=== PATIENT | male | born 1970 | race African-American/Black ===

== ENCOUNTER 2019-04-06 00:10 | Day surgery (SDC) | payer BC, MEDICAID, SELFPAY ==
[2019-03-23 13:14] VITALS: BMI 28.4
--- NOTE | 2019-04-05 14:31 | PM.IMHP ---
H&P: HPI History of Present Illness Chief complaint: Right Knee OA Narrative: Chief Complaint: see Reason for Visit (RIGHT KNEE PAIN) Duration: months months: 7+ Severity: severe Associated signs and symptoms: symptoms reported: (PAIN AND WEAKNESS AND INSTABILITY) Exacerbating/relieving factors: exacerbating factors: (STAIR CLIMBING AND DESCENDING) and relieving factors: (ICE REST ) Review of Systems Review of Systems: All systems reviewed & are unremarkable except as noted in HPI and below Constitutional: Constitutional: Denies headache(s) and Denies weakness Eyes: Eyes: Denies blurry vision, Denies change in vision and Denies loss of vision ENT: Denies dizziness, Denies dry mouth, Denies headache(s) and Denies nasal congestion Cardiovascular: Cardiovascular: Denies chest pain, Denies syncope, Denies leg edema and Denies dyspnea on exertion Respiratory: Respiratory: Denies cough and Denies dyspnea on exertion Gastrointestinal: Gastrointestinal: Denies abdominal pain, Denies constipation and Denies diarrhea Genitourinary: Genitourinary: Denies urinary frequency Musculoskeletal: Musculoskeletal: Reports as per HPI and Denies numbness Integumentary/Breasts: Skin/Breast: Reports system reviewed and no additional complaints, except as docu Neurologic: Denies dizziness, Denies syncope, Denies headache(s), Denies loss of vision, Denies numbness and Denies weakness Psychiatric: Psychiatric: Reports no additional psychiatric complaints Endocrine: Endocrine: Reports no additional endocrine complaints Hematologic/Lymphatic: Hematologic/Lymphatic: Reports no additional hematologic/lymphatic complaints PMFSH Past Medical History Medical History Right knee DJD Social History Social History Gender identity (if verbalized by the patient): Male Meds Home Medications and Allergies Home Medications Medication Instructions Recorded Confirmed Type cetirizine [Zyrtec] 10 mg PO DAILY #30 tablet 02/18/19 03/23/19 Rx Allergies Allergy/AdvReac Type Severity Reaction Status Date / Time Penicillins Allergy Severe Anaphylaxis Verified 03/23/19 13:13 Exam Narrative: Exam Narrative: Extrem General: Yes normal to inspection, Yes capillary refill normal, No clubbing, No cyanosis, No edema, Yes Limp noted and Yes muscle atrophy Right lower extremity: normal to inspection, normal capillary refill and knee Details: normal to inspection, tenderness Location: patella, abnormal ROM (ROM 10 T0 125 DEG, PATELLO FEMORAL CREPITANCE MODERATE.) Details: pain with active ROM during and pain with passive ROM during, knee ligament exam abnormal, Mukund's Test and crepitus; Negative for abnormal to inspection, abrasion, laceration, ecchymosis, deformity (VARUS DEFORMITY) and warmth; No full ROM, cyanosis or edema Left lower extremity: normal to inspection, full ROM, normal capillary refill and knee (ROM 0 TO 130 EG) Details: normal to inspection, normal ROM and knee ligament exam normal; Negative for tenderness, swelling, Mukund's Test, abrasion, laceration, ecchymosis, crepitus, deformity and warmth; No cyanosis, edema or no joint enlargement Assessment and Plan Additional Plan 45 YO MALE WITH HX OF RIGHT KNEE PAIN DUE TO 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 HE HAS NOT HAD RELIEF WITH CORTISONE INJECTION AND PREVIOUSLSY HAD A FLARE UP AND ER VISIT. HE HAS MOST PAIN WITH STAIR CLIMBING. HIS CREPITIS IS SEVERE WITH EXAM. RECOMMEND RIGHT KNEE SCOPE WITH POSSIBLE LATERAL RELEASE. HE WILL MOST LIKELY DEVELOP PATELLO FEMORAL DJD. HIS PAIN IS JUST TOO MUCH AT THIS POINT TO JUSTIFY ANY OTHER PROCEDURE ASIDE FROM AN ARTHROSCOPY. WE ALSO DISCUSSED VISCOSUPPLEMENTATION. THAT MAY BE AN OPTION AFTER HIS KNEE SCOPE ONCE WE CAN DEBRIDE HIS CHONDROMALACIA. HE WOULD LIKE TO PROCEED.
[2019-04-06] VITALS (9 sets, daily range): BP systolic 107–186; BP diastolic 53–92; PULSE 48–60; RESP 10–18; TEMP 36.3–37.1; O2SAT 94–100
--- NOTE | 2019-04-06 07:39 | WPDHPUPDATE1 ---
History and Physical Update Update Date/Time: 04/06/19 07:39 History and Physical has been reviewed, including an updated exam of the patient. There are NO changes in the patient's condition. Risks, benefits, and alternatives have been discussed and questions answered. Patient agrees to proceed with procedure.
--- NOTE | 2019-04-06 08:33 | P.PNAN_ITS ---
Anes - Initial Pre Proc Eval Procedure: Operation Date: 04/06/19 13:30 Proposed Procedures p Right Knee Arthroscopy With Possible Lateral Release, Proceed As Indicated - Preet Goldstein MD Date/Time: 04/06/19 08:33 Surgeon: Preet Goldstein MD Pre Op Diagnosis: Right Knee OA Patient Data Age: 48 Gender: M Height: 1.78 m Weight: 90 kg Allergies Allergy/AdvReac Type Severity Reaction Status Date / Time Penicillins Allergy Severe Anaphylaxis Verified 03/23/19 13:13 Home Medications Medication Instructions Recorded Confirmed Type cetirizine [Zyrtec] 10 mg PO DAILY #30 tablet 02/18/19 03/23/19 Rx ECG: Date of Service: 02/18/19 Procedure(s): CA 12 lead EKG Accession Number(s): [id number] cc: ~ Measurements Intervals [place] Rate: 61 P: 65 VT: 158 QRS: 31 QRSD: 93 T: 26 QT: 398 QTc: 403 Interpretive Statements SINUS RHYTHM NONSPECIFIC T-WAVE ABNORMALITY- ANTERIOR LEADS BORDERLINE ECG Electronically Signed On 02-18-2019 18:47:44 [employer] by Wilver Gillette D.O. Dictated By: Wilver Gillette DO 02/18/19 0929 Patient hx anesthesia problems: none Family hx anesthesia problems: none PMFSH Past Medical History Medical History (Updated 04/06/19 @ 08:34 by Kris Archer MD) Migraine Right knee DJD Social History Social History Gender identity (if verbalized by the patient): Male Anes - Eval Final PreProcedure Day of Procedure 04/06/19 08:33 Patient weight: overweight Heart: regular rate and rhythm Lungs: clear to auscultation and normal air movement Airway: Mallampati scale class II Neurological: alert and oriented Last oral intake: >/= 8 hours ASA classification: II Emergent: no Anesthetic plan: proceed Anesthesia type and monitoring: general LMA Informed Consent: The patient's anesthetic plan and its attendant risks and benefits were discussed with the patient/family/POA. Questions were solicited and answers provided to the satisfaction of the patient/family/POA.
[2019-04-06] MEDS: CELECOXIB 200 MG CAPSULE PO (12:15)
[2019-04-06] MEDS: LACTATED RINGERS 1,000 ML 30 ML IV CONT ×2 (12:15→14:34)
[2019-04-06] MEDS: CLINDAMYCIN 900 MG/NS 50 ML 900 MG/50 ML PIGGYBACK 50 MG IVPB (13:11)
--- NOTE | 2019-04-06 14:34 | PM.OP ---
Procedure Note - Brief Procedure Note - Brief Date of procedure: 04/06/19 Pre-op diagnosis: Right Knee OA Procedure performed: grade 3 chondromalacia Description of procedure: Right Knee Scope with Chondroplasty, Synovectomy and Lateral Release Anesthesia: LARONA Surgeon: Preet Goldstein MD Estimated blood loss (mL): 5 Complications: No immediate complications Condition: stable Disposition: PACU
--- NOTE | 2019-04-06 15:49 | SUR.PHASEII ---
1548: RN notified Dr. Archer of BP 171/65. He said he was fine with that BP for now and to continue to monitor.
--- NOTE | 2019-04-06 19:57 | OP_ITS ---
DATE OF PROCEDURE: 04/06/2019 PREOPERATIVE DIAGNOSIS: Right knee severe chondromalacia patella and degenerative joint disease. POSTOPERATIVE DIAGNOSIS: Right knee severe chondromalacia patella and degenerative joint disease. PROCEDURE: Right knee arthroscopy with lateral release and chondroplasty and synovectomy of the chondrosis and synovitis respectively. ANESTHESIA: General. COMPLICATIONS: None. INDICATIONS: This is a 48-year-old male with severe chondromalacia of the patella. He has done physical therapy, has also tried pain medicine. He is unable to control his pain. He was in severe pain most days with stair climbing. He was indicated for chondroplasty and lateral release of the right patella. DESCRIPTION OF PROCEDURE: The patient was taken to the operating room in stable condition and placed in supine position. General anesthesia was induced and then the right lower extremity was prepped and draped sterilely from the toes to the thigh. Superior medial portal used for an outflow cannula. Superior lateral portal was used for the camera. The camera was introduced. The patellofemoral joint was entered. The patella had grade 3 chondromalacia and the trochlea also had grade 3 and almost 4 chondromalacia. There was a lot of synovitis in the Hoffa synovium and in the medial compartment. The medial compartment was entered, and then the medial meniscus was identified. It was not torn. There was a flap of cartilage that was chondromalacia and that was excised with a shaver. There was no other significant chondromalacia in the tibia or the femur aside from this. Next, the intercondylar notch was entered and the ACL was identified and it was intact. Lateral compartment was entered. There was some mild chondromalacia of the tibia. No other tear of the lateral meniscus and no significant chondromalacia to the lateral femoral condyle. There was some synovitis and it was impinging on the lateral compartment with flexion and extension under direct visualization. So this synovium was debrided with a shaver. Next, the patellofemoral joint then was entered and the first thing was realized that the patella was tracking lateral to the trochlea and some of the lateral facet of the patella was tracking more lateral than normal. It was felt this time that a lateral leads would benefit the patient. The rest of the examination patella revealed severe chondromalacia in the middle of the 2 lateral medial facets. A shaver was introduced, and then a chondroplasty was performed on both the patella and the trochlea until there was a lot smoother tissue. Next, a cautery was placed in the knee joint and a lateral release was performed down past the lateral joint line. Bleeders were cauterized. The wound was irrigated thoroughly. The trochlea and patella underwent chondroplasty once again and for smoother appearance of the cartilage. The instruments were removed after thorough irrigation of the knee joint. The wounds were approximated with 4-0 nylon suture. Sterile dressing applied. The patient was extubated and sent to recovery. Ibeth I MT: Brigid
== END 2019-04-06 16:40 | disposition home or self-care (01) ==
PROVIDERS: PCP Emergency Medicine; Visit Provider Orthopaedic Surgery
PROC: (CPT 29870; principal; 2019-04-06 13:30)
DX: M17.11 Unilateral primary osteoarthritis, right knee (principal); M22.41 Chondromalacia patellae, right knee; M65.861 Other synovitis and tenosynovitis, right lower leg
CPT/HCPCS: 29873; 29876; A9270; J1100; J2250; J2405; J2704; J3010; J7120

== ENCOUNTER 2019-12-05 09:24 | Emergency (ER) | payer OTHER, MEDICAID, SELFPAY ==
[2019-12-05 09:35] VITALS: BP 162/94; PULSE 56; RESP 16; TEMP 36.7; O2SAT 99
--- NOTE | 2019-12-05 09:41 | ED.ABDPAIN ---
HPI - Abdominal Pain General Chief Complaint: Abdominal Pain Stated Complaint: Stomach Pain Source: patient and RN notes reviewed Limitations: no limitations History of Present Illness HPI narrative: The patient, a non-smoker/occ drinker, presents with abdominal discomfort. Patient states he has a shorter 1 day history of epigastric discomfort, associated with nonbilious emesis x1. 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 Symptoms are mild, and un like prior diverticulitis [which was LLQ]. Advised to go to higher-level care facility to higher level testing if not improved , because for early diagnosis of serious problems [pancreatitis, appendicitis, covid etc], clear specific symptoms do not develope until later Related Data Allergies Allergy/AdvReac Type Severity Reaction Status Date / Time Penicillins Allergy Severe Anaphylaxis Verified 12/05/19 09:29 Review of Systems Review of Systems: Narrative: The patient has been informed that they may have pre-hypertension or Hypertension based on a BP reading in the department. I recommend that the patient call the primary care provider listed on their discharge instructions or a physician of their choice this week to arrange follow up for further evaluation of possible pre-hypertension or Hypertension General/Constitutional: No weight loss,fever Eyes: N0: Redness,discharge Ears/Nose/Throat: No: Epistaxis,ear discharge Respiratory: Denies: Hemoptysis Gastrointestinal: + Vomiting, no Bleeding-rectal Skin: No Lumps, eruption Neurologic: No Focal Weakness,Sz Hematologic: Denies: Petechiae/Purpura Psychiatric: No: Suicida ideationl All Other Systems: Reviewed and Negative [facility] Past Medical History Medical History (Updated 12/05/19 @ 09:57 by Jim Fabian MD) Diverticulitis large intestine Migraine Right knee DJD Social History Social History Gender identity (if verbalized by the patient): Male Comments At time of signature, agree with nursing past medical, surgical, social and family history. There is no relevant family history pertinent to the presenting complaint Exam Narrative: Exam Narrative: General Appearance: Well appearing, No distress EYE: PERRLA, Conjunctiva clear Ears: External ear normal Nose: Normal nose Mouth/Throat: Normal appearing, Normal lips Neck: Supple Respiratory: Airway patent, No respiratory distress Cardiovascular: RRR Abdomen: Soft, mild epigastrium tenderness, No massess, No organomegaly (no rebound/ surgical signs), Hyperactive bowel sounds Musculoskeletal: Full ROM Skin: Warm, Dry Neurological: A&O x3, CN II-X intact Psychiatric: Normal mood, Normal affect Course Vital Signs Vital signs: Vital Signs Temperature 98.0 F 12/05/19 09:35 Pulse Rate 56 L 12/05/19 09:35 Respiratory Rate 16 12/05/19 09:35 Blood Pressure 162/94 H 12/05/19 09:35 Pulse Oximetry 99 12/05/19 09:35 Temperature 98.0 F 12/05/19 09:46 Pulse Rate 56 L 12/05/19 09:46 Respiratory Rate 16 12/05/19 09:46 Blood Pressure 162/94 H 12/05/19 09:46 Pulse Oximetry 99 12/05/19 09:46 Discharge Plan Discharge Clinical Impression: Vomiting Qualifiers: Vomiting type: unspecified Vomiting Intractability: non-intractable Nausea presence: with nausea Qualified Code(s): R11.2 - Nausea with vomiting, unspecified Patient Disposition: Home, Self-Care Condition: Stable Prescriptions: New ondansetron HCl [Zofran] 4 mg tablet 4 mg PO Q8H PRN (Reason: nausea and vomiting) Qty: 10 RF: 0 No Action sumatriptan succinate [Imitrex] 25 mg tablet 25 mg PO ONCE PRN (Reason: migraine headache) Qty: 20 RF: 0 Other Ambulatory Orders: SARS-CoV-2 RNA, Qual RT-PCR (Routine) Location: Determined by Patient Ordered By: Jim Fabian Follow-up/Referrals: Fredo Marin
[2019-12-05 09:46] VITALS: BP 162/94; PULSE 56; RESP 16; TEMP 36.7; O2SAT 99
[2019-12-05] MEDS: ONDANSETRON HCL ODT 4 MG TABLET PO (10:01)
== END 2019-12-05 10:05 | disposition home or self-care (01) ==
PROVIDERS: Emergency Provider Emergency Medicine; PCP Emergency Medicine
DX: R11.2 Nausea with vomiting, unspecified (principal); Z20.828 Contact with and (suspected) exposure to other viral communicable diseases; M17.11 Unilateral primary osteoarthritis, right knee
CPT/HCPCS: 99213; A9270; G0463

== ENCOUNTER 2019-12-05 11:32 | Outpatient (NON) | payer OTHER, MEDICAID, SELFPAY ==
[2019-12-05 20:51] LABS: SARS-CoV-2 RNA PCR Negative
== END 2019-12-05 11:33 ==
LOC: ANHCOVIDDT 11:34
PROVIDERS: PCP Emergency Medicine; Visit Provider Emergency Medicine
DX: R11.10 Vomiting, unspecified (principal); Z20.828 Contact with and (suspected) exposure to other viral communicable diseases
CPT/HCPCS: 87635; C9803; U0003

== ENCOUNTER 2020-02-07 09:44 | Emergency (ER) | payer OTHER, MEDICAID, SELFPAY ==
--- NOTE | ~2020-02-07 | XR_ITS ---
EXAMINATION: XR abdomen/kub 1V EXAM DATE: 02/07/2020 10:21 INDICATION: Epigastric pressure. TECHNIQUE: Frontal projection(s) of the abdomen for interpretation. There is no prior study for rajiv vila. FINDINGS: There is expected amount of colonic stool and gas. No small bowel dilation, nonobstructiv e bowel gas pattern. There are no suspicious calcifications identified. There is no organomegaly suspected. The bones are unremarkable. Lung bases unremarkable. IMPRESSION: Unremarkable abdomen x-ray exam. Reviewed, dictated and finalized at location B. [employer]
[2020-02-07 09:50] VITALS: BP 178/92; PULSE 60; RESP 16; TEMP 36.9; O2SAT 100
--- NOTE | 2020-02-07 09:57 | ED.GENADULT ---
HPI - General Adult General Chief complaint: Abdominal Pain Stated complaint: abdominal pain Time Seen by Provider: 02/07/20 10:00 Source: patient and RN notes reviewed Mode of arrival: ambulatory Limitations: no limitations History of Present Illness HPI narrative: 49-year-old -German male presents with complaints of epigastric abdomen pain, nausea, dry heaves for the past 3 weeks. Rehan reports awoke this morning at approximately 04:00am with mid-epigastric pain and a coughing episode which increased once he got to work about 08:00 was sent home from work and instructed to seek urgent care attention. Pepto-Bismol last this morning with some relief and has been using Tums daily (for the past 3 weeks) with little relief. 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 No genital pain. No genital discharge. No concerns for STDs. No fever or chills. No vomiting or diarrhea. No flank pain. Tolerating po intake well. No exacerbating factors. Denies dysuria, hematuria, and genital bleeding. No blood in stool or constipation. Last BM was today at 07:30am and normal. Urine output within normal limits. The patient reports he has not been diagnosed with COVID-19. The patient reports he is not waiting for the results of a COVID-19 lab test. The patient reports he do not have fever, chills, weakness, fatigue, or myalgia. The patient reports he do not have a new or worsening cough or shortness of breath. Denies chest pain. The patient reports he do not have any rhinorrhea, congestion, sore throat, and diarrhea. Denies recent traveling. Denies concerns for COVID-19 or exposures been home with limited outdoor exposure except for essential household needs, work, and return home. At this time, patient is not suspected of having COVID-19. Some parts of this dictation were generated by voice recognition software and may contain typographical and/or grammatical inaccuracies. Related Data Allergies Allergy/AdvReac Type Severity Reaction Status Date / Time Penicillins Allergy Severe Anaphylaxis Verified 02/07/20 10:01 Review of Systems Review of Systems: Narrative: CONSTITUTIONAL: Denies fever, chills, sweats. EYES: Denies visual changes, redness, discharge. ENT: Denies rhinorrhea, congestion, sore throat, otalgia. CARDIOVASCULAR: Denies chest pain, palpitations, edema. RESPIRATORY: Denies dyspnea, wheezing, cough. GASTROINTESTINAL: Complains of epigastric abdomen pain, nausea, dry heaves. Denies diarrhea and decrease appetite. GENITOURINARY: Denies dysuria, hematuria, abnormal discharge. SKIN: Denies rash or itching. MUSCULOSKELETAL: Denies acute back pain, joint pain, or myalgia. NEUROLOGIC: Denies numbness or focal weakness. PSYCHIATRIC: Denies anxiety or depression. All systems reviewed & are unremarkable except as noted in HPI and below. [facility] Past Medical History Medical History Degenerative joint disease of knee Diverticulitis large intestine Migraine Right knee DJD Surgical History Surgical History History of arthroscopy of knee Rt knee scope with Dr. Goldstein Family History Family History (Updated 02/07/20 @ 10:23 by KB Churchill) Father Lung cancer Mother , Old age per Rehan Hypertension Atrial fibrillation Social History Social History (Updated 02/07/20 @ 10:24 by KB Churchill) Smoking status: Former smoker Tobacco type: cigarettes Second hand tobacco smoke exposure: Yes Smoking end date: 02/09/98 Alcohol intake: current Alcohol use details: occasionally Substance use: never Living arrangements: with family Occupation/Education:
[2020-02-07] MEDS: ONDANSETRON HCL ODT 4 MG TABLET PO (10:20)
[2020-02-07] MEDS: LIDOCAINE HCL 2% VISC SOLN 15 ML UDC PO (10:21)
[2020-02-07] MEDS: MAG HYDROX/AL HYDROX/SIMETH 30 ML UDC PO (10:22)
[2020-02-07 10:30] VITALS: BP 140/90
== END 2020-02-07 10:41 | disposition home or self-care (01) ==
PROVIDERS: Emergency Provider Nurse Practitioner Family; PCP Emergency Medicine
DX: K21.9 Gastro-esophageal reflux disease without esophagitis (principal); Z87.891 Personal history of nicotine dependence; M17.11 Unilateral primary osteoarthritis, right knee
CPT/HCPCS: 74018; 99213; A9270; G0463

== ENCOUNTER 2020-04-26 08:24 | Outpatient (CLI) | payer BC, MEDICAID, SELFPAY ==
--- NOTE | ~2020-04-26 | XR_ITS ---
EXAMINATION: XR thoracolumbar EXAM DATE: 04/26/2020 08:42 INDICATION: Low back pain. TECHNIQUE: Frontal and lateral projections of the thoracolumbar spine. Comparison is made to prior e xamination from 03/15/2018. FINDINGS: Mild chronic loss of the T11 and T12 vertebral body heights with mild to moderate disc dis ease at T11-12. Otherwise mild thoracolumbar disc disease. Mild lumbar facet arthropathy. The vertebr al bodies are aligned in the AP dimension. There are no acute fractures identified. Paraspinal soft t issue is unremarkable. IMPRESSION: 1. Chronic mild compressions T11 and T12 versus congenital shape. 2. T11-12 mild to moderate disc disease. 3. Mild lumbar facet arthropathy. Reviewed, dictated and finalized at location A.
== END 2020-04-26 08:25 | disposition home or self-care (01) ==
PROVIDERS: PCP Emergency Medicine; Visit Provider Emergency Medicine
DX: M54.5 Low back pain (principal); M54.6 Pain in thoracic spine
CPT/HCPCS: 72080

== ENCOUNTER 2020-05-21 19:51 | Emergency (ER) | payer BC, MEDICAID, SELFPAY ==
--- NOTE | ~2020-05-21 | CT_ITS ---
EXAMINATION: CT abdomen pelvis w con EXAM DATE: 05/22/2020 01:14 INDICATION: Left lower quadrant pain. TECHNIQUE: Spiral CT of the abdomen and pelvis was performed following intravenous injection of 100 m L Omnipaque 350. Axial, coronal and sagittal images of the abdomen and pelvis were reviewed. The do se-length product (DLP) for this examination was 736.67 mGy-cm. The exposure was tailored according to patient size (auto mA exposure control), and iterative reconstruction (ASIR) was used as additiona l dose reduction technique. There is no prior study for comparison. FINDINGS: Several subcentimeter liver hypodensities most likely cysts. There is hepatic steatosis wi thout suspicious focal lesion identified. Spleen, adrenal glands, pancreas are unremarkable. Gallbla dder is unremarkable. No biliary obstruction. Portal and splenic veins are patent. Kidneys enhance symmetrically. There is no hydronephrosis. There is a right renal cyst measuring 1.8 cm. The prost ate is unremarkable. The bladder is unremarkable. There is no retroperitoneal or pelvic lymphadenop athy. Small to moderate-sized left inguinal hernia, small right renal hernia, both containing fat. There is extensive descending and sigmoid colonic diverticulosis. There is moderate amount of inflamm ation along the descending colon with moderately edematous focal region, appearance is consistent wit h acute diverticulitis. No perforation or abscess. No enlarged lymph nodes to suggest that this is in flammatory cancer. The appendix is normal. The stomach and small bowel are unremarkable. There is e xpected amount of colonic stool. No free intraperitoneal gas. The heart is normal in size. There are no pericardial or pleural effusions. The lung bases are unremarkable. The bones are unremarkab le. IMPRESSION: 1. Findings consistent with acute uncomplicated descending colonic diverticulitis. 2. Hepatic steatosis. 3. Inguinal hernias. Reviewed, dictated and finalized at location A. IMPRESSION: 1. Findings consistent with acute uncomplicated descending colonic diverticuli tis. 2. Hepatic steatosis. 3. Inguinal hernias.
[2020-05-21 20:34] VITALS: BP 179/94; PULSE 55; RESP 16; TEMP 36.3; O2SAT 99
[2020-05-21 20:46] LABS: Basophils Percent Auto 0.2 % (0.2-1.2); Eosinophils Absolute Auto 0.1 K/mm3 (0-0.3); Eosinophils Percent Auto 0.7 % (0-4.4); Hematocrit 43.1 % (42.0-52.0); Hemoglobin 14.6 g/dL (14.0-18.0); Immature Granulocyte Absolute 0.03 K/mm3 (0.00-0.031); Immature Granulocyte Percent A 0.3 % (0-0.5); Lymphocytes Percent Auto 14.8 % (18.3-44.2); Mean Corpuscular HGB Conc 33.9 g/dl (32-36); Mean Corpuscular Hemoglobin 27.4 pg (26-34); Mean Corpuscular Volume 80.9 fl (80-100); Monocytes Absolute Auto 0.6 K/mm3 (0.1-0.6); Monocytes Percent Auto 6.2 % (2.6-8.5); Neutrophils Absolute Auto 7.9 K/mm3 (1.3-6.7); Neutrophils Percent Auto 77.8 % (45.5-73.1); Platelet Count Result 235 k/mm3 (150-375); Red Blood Count 5.33 M/mm3 (4.6-6.20); Red Cell Distribution Width 14.6 % (11.5-14.5); White Blood Count 10.1 K/mm3 (4.5-10.0)
[2020-05-21 21:08] LABS: Add Urine Microscopic? YES; Appearance Urine Clear (Clear); Bilirubin Urine Negative (Negative); Blood Urine Negative (Negative); Color Urine Yellow (Yellow); Glucose Urine UA Negative (Negative); Ketones Urine Negative (Negative); Leukocyte Esterase Ur Negative LEU/UL (Negative); Nitrate Urine Negative (Negative); Protein Urine 1+ mg/dL (Negative); Specific Grav Ur 1.013 (1.001-1.035); Urobilinogen Urine Negative mg/dL (<2.0)
[2020-05-21 21:17] LABS: RBC Urine 0-2 /hpf (0-2); Squamous Epithelial Cell Urine Rare /hpf (Few); WBC Urine 0-3 /hpf (0-3)
[2020-05-21 21:25] LABS: Alanine Aminotransferase 34 U/L (4-50); Albumin Level 4.5 g/dL (3.5-5.1); Alkaline Phosphatase 73 U/L (38-126); Anion Gap 3 mmol/L (8-16); Aspartate Amino Transferase 37 U/L (17-59); Bilirubin,Total 0.4 mg/dL (0.2-1.3); Blood Urea Nitrogen 9 mg/dL (9-20); Calcium 9.4 mg/dL (8.4-10.2); Carbon Dioxide 31 mmol/L (22-30); Chloride 104 mmol/L (98-107); Estimated CRCL calculation 85 ml/min; Estimated Glomerular Filt Rate > 60; Glucose 101 mg/dL (75-110); Lipase 79 U/L (23-300); Potassium 4.5 mmol/L (3.4-5.0); Sodium 138 mmol/L (137-145)
[2020-05-21 23:48] VITALS: BP 175/92; PULSE 54; RESP 16; O2SAT 100
[2020-05-22 00:19] VITALS: BP 159/75; PULSE 52; RESP 16; O2SAT 99
--- NOTE | 2020-05-22 00:26 | ED.GENADULT ---
HPI - General Adult General Chief complaint: Abdominal Pain Stated complaint: LLQ pain, N/V Time Seen by Provider: 05/21/20 23:50 Source: patient History of Present Illness HPI narrative: Patient is a 49 y/o male complaining left lower abdominal pain starting approximately 9 hours ago. He describes his pain as sharp and rates it as 7/10. There is no pain radiation. He states that cough makes his pain worse. He had an episode of vomiting. He has no diarrhea. Related Data Allergies Allergy/AdvReac Type Severity Reaction Status Date / Time Penicillins Allergy Severe Anaphylaxis Verified 02/07/20 10:01 Review of Systems Constitutional: Constitutional: Denies chills, Denies fever(s), Denies headache(s) and Denies weakness Eyes: Eyes: Denies blurry vision ENT: Denies headache(s) and Denies neck pain Cardiovascular: Cardiovascular: Denies chest pain and Denies dyspnea Respiratory: Respiratory: Denies cough and Denies dyspnea Gastrointestinal: Gastrointestinal: Reports abdominal pain, Denies diarrhea, Reports nausea and Reports vomiting Genitourinary: Genitourinary: Denies hematuria and Denies dysuria Musculoskeletal: Musculoskeletal: Denies back pain and Denies neck pain Neurologic: Denies headache(s) and Denies weakness PMFSH Past Medical History Medical History Degenerative joint disease of knee Diverticulitis large intestine Migraine Right knee DJD Surgical History Surgical History History of arthroscopy of knee Rt knee scope with Dr. Goldstein Family History Family History Father Lung cancer Mother , Old age per Rehan Hypertension Atrial fibrillation Social History Social History Smoking status: Former smoker Tobacco type: cigarettes Second hand tobacco smoke exposure: Yes Smoking end date: 02/09/98 Alcohol intake: current Substance use: never Gender identity (if verbalized by the patient): Male Exam Const: General: no acute distress and well developed Orientation/consciousness: oriented to person, oriented to place, oriented to time and patient oriented x3 HENMT: Head: normocephalic Ears: external ears normal General nose exam: Normal external nose present Eyes: General: appearance normal, both eyes and all related structures Conjunctivae: conjunctivae normal Neck: Neck: normal visual inspection and full ROM Chest: Chest palpation & inspection: normal inspection of the chest and no tenderness Resp: Effort & Inspection: normal respiratory effort Auscultation: clear to auscultation bilaterally Cardio: Rate: regular rate Rhythm: regular rhythm GI: GI Palp: Yes abdominal tenderness (left lower quadrant) and Yes Soft to palpation Skin: General skin exam: normal color and turgor normal Neuro: General: oriented to person, oriented to place, oriented to time and patient oriented x3 Cognition (Neuro): normal cognition Extrem: General: normal to inspection, full ROM and no pedal edema Psych: Appearance: grossly normal Mental Status: mental status grossly normal Affect: normal affect Course Vital Signs Vital signs: Vital Signs Temperature 36.3 C L 05/21/20 20:34 Pulse Rate 55 L 05/21/20 20:34 Respiratory Rate 16 05/21/20 20:34 Blood Pressure 179/94 H 05/21/20 20:34 Pulse Oximetry 99 05/21/20 20:34 Temperature 36.3 C L 05/21/20 20:34 Pulse Rate 56 L 05/22/20 02:16 Respiratory Rate 16 05/22/20 02:16 Blood Pressure 158/72 H 05/22/20 02:16 Pulse Oximetry 99 05/22/20 02:16 Medical Decision Making Vital Signs Vital Signs: Vital Signs Temperature 36.3 C L 05/21/20 20:34 Pulse Rate 55 L 05/21/20 20:34 Respiratory Rate 16 05/21/20 20:34 Blood Pressure 179/94 H 05/21/20 20:34 Pulse Oximetry 99
[2020-05-22] MEDS: KETOROLAC 30 MG/ML VIAL (*BKC) IV PUSH (01:01)
[2020-05-22 02:16] VITALS: BP 158/72; PULSE 56; RESP 16; O2SAT 99
== END 2020-05-22 02:10 | disposition home or self-care (01) ==
PROVIDERS: Emergency Medicine; Emergency Provider Emergency Medicine; PCP Emergency Medicine
DX: K57.32 Diverticulitis of large intestine without perforation or abscess without bleeding (principal); M17.11 Unilateral primary osteoarthritis, right knee; Z87.891 Personal history of nicotine dependence; K40.90 Unilateral inguinal hernia, without obstruction or gangrene, not specified as recurrent; K76.0 Fatty (change of) liver, not elsewhere classified
CPT/HCPCS: 36415; 74177; 80053; 81001; 83690; 85025; 96374; 99284; J1885; Q9967

== ENCOUNTER 2020-06-19 09:00 | Outpatient (RCR) | payer BC, MEDICAID, SELFPAY ==
--- NOTE | 2020-05-24 10:18 | PTOPEVAL ---
INITIAL PHYSICAL THERAPY EVALUATION and PLAN OF CARE Thank you for referring Rehan Reilly Jr. to [facility].? Rehan is scheduled to be seen for physical therapy? 2x/week for 4 weeks. Please review, sign, date and return this plan of care TATE. I agree with and certify that the following plan of care is medically necessary. Referring Physician Date Admitting Provider: Attending Provider: Fredo Marin MD Referring Provider: *PT Outpatient Evaluation Start: 05/24/20 09:14 Freq: Status: Active Protocol: Document 05/24/20 09:14 BETSEY (Rec: 05/24/20 10:18 BETSEY [id number]) Therapy Assessment Status Assessment Status Assessment Status Evaluation Outpatient Past Medical History Past Medical History Source of Past Medical History Recalled from Previous Visit, Confirmed with Patient/Family Neurological History Hx Migraine Yes Cardiovascular History Hx Cardiac Disorders No Significant History Respiratory History Hx Other Respiratory Disorders Yes: 11/2019 - received CPAP Gastrointestinal History Hx Diverticulitis Yes Genitourinary History Hx Genitourinary Disorders No Significant History Musculoskeletal History Hx Back Injury Yes: lumbar, thoracic Hx Orthopedic Surgery Yes: Rt knee- 03/2019 arthroscopy Hx Other Musculoskeletal Disorders Yes: RIGHT KNEE PAIN, OFF AND ON BACK PAIN- DISCS OUT OF PLACE Hematological History Hx Hematological Disorders No Significant History Endocrine History Hx Endocrine Disorders No Significant History HEENT History Hx HEENT Disorders No Significant History Integumentary History Hx Skin Disorders No Significant History Reproductive History Hx Reproductive Disorders No Significant History Psychosocial History Hx Psychiatric Disorders No Significant History Pain History History of Any Previous or Ongoing No Significant History Instance of Pain Anesthesia History Hx Anesthesia Reactions No Significant History Evaluation Information Problem Diagnosis low back pain,pain in thoracic spine,spondylosis lumbar spine,disc disorder Onset worsened last month or so Subjective Information Having more shooting pain Query Text:As Reported By Patient/ right on spine - not dependent Family on activity 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 Sleeping - does put biofreeze on
--- NOTE | 2020-06-19 09:50 | PTOPEVAL ---
PHYSICAL THERAPY DISCHARGE SUMMARY Thank you for referring Rehan Reilly Jr. to [facility].? Rehan has been seen x 8 visits in PT. All goals have been met. He is compliant and proficient with his HEP. I agree with Rehan's discharge from PT. Referring Physician Date Admitting Provider: Attending Provider: Fredo Marin MD Referring Provider: Therapy Assessment Status Assessment Status Assessment Status Discharge Evaluation Information Problem Diagnosis low back pain,pain in thoracic spine,spondylosis lumbar spine,disc disorder Subjective Information Rehan reports that he was able Query Text:As Reported By Patient/ to watch a movie with his Family girlfriend without having any back pain. He has been experimenting with various lumbar supports for seat while driving. He has foam roller and ther ex ball at home - use on a daily basis - helps to maintain back/spine mobility. Pain Assessment Lower Back Reported Pain Level 2 Pain Description Aching Lowest Pain Intensity 0 Greatest Pain Intensity 4 Cervical and Lumbar ROM Lumbar ROM Lumbar Flexion (0-90) 65 Query Text:Active in Degrees Lumbar Extension (0-40) 30 Query Text:Active in Degrees Lumbar Lateral Flexion Right (0-40) 25 Query Text:Active in Degrees Lumbar Lateral Flexion Left (0-40) 25 Query Text:Active in Degrees Lumbar Comments no discomfort with back motion this date Palpation Assessment Palpation Palpation no discomfort with P-A mob thoracic spine - mild decreased mobility into R rotation with mid thoracic spine - no discomfort - good mobility present PT Clinical Summary Clinical Summary Protocol: PTEVCODE PT Clinical Summary Modified Oswestry LBP Questionnaire - 6% Rehan has progressed well in PT. His back pain has decreased, back ROM has increased, he is very proficient with his HEP which helps him to manage any back pain that he might have, he has increased awareness of proper posture and body
== END 2020-06-20 09:15 | disposition home or self-care (01) ==
LOC: ANHPT 09:00
PROVIDERS: PCP Emergency Medicine; Visit Provider Emergency Medicine
DX: M54.5 Low back pain (principal); M47.816 Spondylosis without myelopathy or radiculopathy, lumbar region; M51.9 Unspecified thoracic, thoracolumbar and lumbosacral intervertebral disc disorder
CPT/HCPCS: 97014; 97110; 97140; 97161; G0283

== ENCOUNTER 2020-10-10 02:26 | Day surgery (SDC) | payer BC, MEDICAID, SELFPAY ==
[2020-09-27 14:03] VITALS: BMI 29.4
[2020-10-10 06:08] VITALS: BP 176/90; PULSE 50; RESP 16; TEMP 35.7; O2SAT 99; BMI 28.5
[2020-10-10] MEDS: LACTATED RINGERS 1,000 ML 150 ML IV CONT (06:31)
--- NOTE | 2020-10-10 07:23 | P.PNAN_ITS ---
Anes - Initial Pre Proc Eval Procedure: Operation Date: 10/10/20 07:30 Proposed Procedures p Screening Colonoscopy - Marco Early MD Date/Time: 10/10/20 07:23 Surgeon: Marco Early MD Pre Op Diagnosis: neoplasm screening Z12.11 Patient Data Age: 50 Gender: M Height: 1.78 m Weight: 90.4 kg Last Vital Signs Temp 96.2 F L 10/10/20 06:08 Pulse 50 L 10/10/20 06:08 Resp 16 10/10/20 06:08 BP 176/90 H 10/10/20 06:08 Pulse Ox 99 10/10/20 06:08 Allergies Allergy/AdvReac Type Severity Reaction Status Date / Time Penicillins Allergy Severe Anaphylaxis Verified 10/10/20 06:20 Home Medications Medication Instructions Recorded Confirmed Type No Home Medications 09/27/20 10/10/20 History Patient hx anesthesia problems: none Family hx anesthesia problems: none PMFSH Past Medical History Medical History Degenerative joint disease of knee Diverticulitis large intestine Migraine Right knee DJD Surgical History Surgical History History of arthroscopy of knee Rt knee scope with Dr. Goldstein Family History Family History Father Lung cancer Mother , Old age per [place] Hypertension Atrial fibrillation Social History Social History Social History: Patient does not drink caffeine or exercise. Smoking packs per day: 1.5 Smoking cigarettes per day: 30.0 Years smoked: 8 Smoking pack-years: 12.00 Smoking status: Former smoker Tobacco type: cigarettes Second hand tobacco smoke exposure: Yes Smoking end date: 02/09/98 Additional smoking assessment comments: Patient's brother smokes in the house. Alcohol intake: current Drinks per week: 2 Alcohol use details: Patient drinks alcohol rarely. 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 Gender identity (if verbalized by the patient): Male Sexual Orientation (if Verbalized by the Patient): Straight or Heterosexual Spiritual care concerns: No Anes - Eval Final PreProcedure Day of Procedure 10/10/20 07:23 Patient weight: overweight Heart: regular rate and rhythm Lungs: clear to auscultation Airway: Mallampati scale class II Neurological: alert and oriented Last oral intake: >/= 8 hours ASA classification: II Emergent: no Anesthetic plan: proceed Anesthesia type and monitoring: general GIVS and standard monitoring Informed Consent: The patient's anesthetic plan and its attendant risks and benefits were discussed with the patient/family/POA. Questions were solicited and answers provided to the satisfaction of the patient/family/POA.
--- NOTE | 2020-10-10 07:28 | PM.HPGS ---
History of Present Illness History of Present Illness Consent: Risks, benefits, and alternatives have been discussed and questions answered. Patient agrees to proceed with procedure. Chief complaint: neoplasm screening Z12.11 Narrative: Rehan Reilly Jr. is a 50 year old male here for first colon screening, he also is complaining of epigastric pain despite using pepcid and never had egd Review of Systems Constitutional: Constitutional: Denies headache(s) and Denies weakness Eyes: Eyes: Denies blurry vision ENT: Reports Normal hearing present, Denies headache(s) and Denies neck pain Cardiovascular: Cardiovascular: Denies chest pain and Denies dyspnea Respiratory: Respiratory: Denies dyspnea Gastrointestinal: Gastrointestinal: Reports no additional gastrointestinal complaints Genitourinary: Genitourinary: Denies dysuria Musculoskeletal: Musculoskeletal: Denies neck pain Integumentary/Breasts: Skin/Breast: Denies dry skin Neurologic: Reports Normal hearing present, Denies headache(s) and Denies weakness Psychiatric: Psychiatric: Denies anxiety Endocrine: Endocrine: Denies change in body appearance Hematologic/Lymphatic: Hematologic/Lymphatic: Denies easy bleeding Allergic/Immunologic: Allergic/Immunologic: Denies urticaria PMFSH Past Medical History Medical History Degenerative joint disease of knee Diverticulitis large intestine Migraine Right knee DJD Surgical History Surgical History History of arthroscopy of knee Rt knee scope with Dr. Goldstein Family History Family History Father Lung cancer Mother , Old age per Rehan Hypertension Atrial fibrillation Social History Social History Social History: Patient does not drink caffeine or exercise. Smoking packs per day: 1.5 Smoking cigarettes per day: 30.0 Years smoked: 8 Smoking pack-years: 12.00 Smoking status: Former smoker Tobacco type: cigarettes Second hand tobacco smoke exposure: Yes Smoking end date: 02/09/98 Additional smoking assessment comments: Patient's brother smokes in the house. Alcohol intake: current Drinks per week: 2 Alcohol use details: Patient drinks alcohol rarely. 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 Gender identity (if verbalized by the patient): Male Sexual Orientation (if Verbalized by the Patient): Straight or Heterosexual Spiritual care concerns: No Meds Home Medications and Allergies Home Medications Medication Instructions Recorded Confirmed Type No Home Medications 09/27/20 10/10/20 History Allergies Allergy/AdvReac Type Severity Reaction Status Date / Time Penicillins Allergy Severe Anaphylaxis Verified 10/10/20 06:20 Vital Signs Vital Signs - 24 hr 10/10/20 06:08 Temperature 96.2 F L Pulse Rate 50 L Respiratory Rate 16 Blood Pressure 176/90 H Pulse Oximetry 99 Exam Const: General: comfortable and no acute distress HENMT: General nose exam: Normal nares present Eyes: General: appearance normal, both eyes and all related structures Neck: Neck: no JVD Resp: Auscultation: clear to auscultation bilaterally Cardio: Rate: regular rate Rhythm: regular rhythm GI: Inspection: non-distended GI Palp: Yes Soft to palpation Skin: General skin exam: normal color Neuro: General: gait normal Speech: normal speech Extrem: General: normal to inspection Psych: Mental Status: mental status grossly normal Assessment and Plan Assessment and plan (1) Colon cancer screening: Code(s): Z12.11 - Encounter for screening for malignant neoplasm of colon
[2020-10-10 07:49] VITALS: BP 112/64; PULSE 58; RESP 16; O2SAT 98
[2020-10-10 07:59] VITALS: BP 117/73; PULSE 47; RESP 16; O2SAT 98
[2020-10-10 08:09] VITALS: BP 123/69; PULSE 43; RESP 16; O2SAT 98
== END 2020-10-10 08:26 | disposition home or self-care (01) ==
PROVIDERS: PCP Emergency Medicine; Visit Provider Internal Medicine Gastroenterology
PROC: 0DJD8ZZ Inspection of Lower Intestinal Tract, Via Natural or Artificial Opening Endoscopic (ICD-10-PCS; CPT 45378; principal; 2020-10-10 07:30)
DX: Z12.11 Encounter for screening for malignant neoplasm of colon (principal); D12.0 Benign neoplasm of cecum; D12.3 Benign neoplasm of transverse colon; D12.4 Benign neoplasm of descending colon; D12.5 Benign neoplasm of sigmoid colon; K57.30 Diverticulosis of large intestine without perforation or abscess without bleeding; K64.8 Other hemorrhoids; F12.90 Cannabis use, unspecified, uncomplicated; K21.9 Gastro-esophageal reflux disease without esophagitis; Z87.891 Personal history of nicotine dependence
CPT/HCPCS: 45385; 88305; J2704; J7120

== ENCOUNTER 2020-10-11 17:31 | Inpatient (IN) | payer BC, MEDICAID, SELFPAY ==
[2020-10-11 17:39] VITALS: BP 154/97; PULSE 80; RESP 20; TEMP 36.8; O2SAT 100
--- NOTE | 2020-10-11 18:02 | ED.GIBLEED ---
HPI - GI Bleed General Chief complaint: GI Bleed Stated complaint: Rectal Bleeding after colonoscopy Time Seen by Provider: 10/11/20 17:50 Source: patient and RN notes reviewed Mode of arrival: ambulatory Limitations: no limitations History of Present Illness HPI Narrative: This is a 50 year old male who presents for evaluation of rectal bleeding s/p colonoscopy. Patient had a colonoscopy with polypectomies performed yesterday by Dr. Early. He started passing blood with clots rectally last night. He has continued to have multiple episodes today. He states 10 minutes ago he had the urge to have bowel movement, and he passed blood in the toilet with clots. He denies abdominal pain, nausea, vomiting, fever, dizziness or lightheadedness. He denies taking any blood thinners or antiplatelets. Related Data Home Medications Medication Instructions Recorded Confirmed No Home Medications 09/27/20 10/10/20 Allergies Allergy/AdvReac Type Severity Reaction Status Date / Time Penicillins Allergy Severe Anaphylaxis Verified 10/11/20 17:46 Review of Systems Review of Systems: All systems reviewed & are unremarkable except as noted in HPI and below PMFSH Past Medical History Medical History Degenerative joint disease of knee Diverticulitis large intestine Migraine Right knee DJD Surgical History Surgical History History of arthroscopy of knee Rt knee scope with Dr. Goldstein Family History Family History Father Lung cancer Mother , Old age per [place] Hypertension Atrial fibrillation Social History Social History Social History: Patient does not drink caffeine or exercise. Smoking packs per day: 1.5 Smoking cigarettes per day: 30.0 Years smoked: 8 Smoking pack-years: 12.00 Smoking status: Former smoker Tobacco type: cigarettes Second hand tobacco smoke exposure: Yes Smoking end date: 02/09/98 Additional smoking assessment comments: Patient's brother smokes in the house. Alcohol intake: current Drinks per week: 2 Alcohol use details: Patient drinks alcohol rarely. 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 Gender identity (if verbalized by the patient): Male Sexual Orientation (if Verbalized by the Patient): Straight or Heterosexual Spiritual care concerns: No Exam Const: General: no acute distress and alert Orientation/consciousness: patient oriented x3 Eyes: EOM: EOMs intact bilaterally Chest: Chest palpation & inspection: normal inspection of the chest Resp: Effort & Inspection: normal respiratory effort and no retractions Auscultation: clear to auscultation bilaterally Cardio: Rate: regular rate Rhythm: regular rhythm Heart sounds: no murmurs GI: GI Palp: Yes Soft to palpation, No Tenderness to palpation present (GI) and No Guarding due to palpation present (GI) Auscultation: normal bowel sounds Skin: General skin exam: normal color Rashes: no rashes Neuro: General: patient oriented x3, moves all extremities and CN's II-XI intact bilaterally Course Consultations Consultation #1: I Discussed case with Dr. Eliazar Giron who agrees patient to be obs in hospital. Kami melchor accepts patient to medical floor. PAtient showed me toilet full of dark blood red Date: 10/11/20 Time: 19:09 Vital Signs Vital signs: Vital Signs Temperature 98.2 F 10/11/20 17:39 Pulse Rate 80 10/11/20 17:39 Respiratory Rate 20 10/11/20 17:39 Blood Pressure 154/97 H 10/11/20 17:39 Pulse Oximetry 100 10/11/20 17:39 Temperature 98.2 F 10/11/20 17:39 Pulse Rate 62 10/11/20 21:07 Respiratory Rat
[2020-10-11 18:29] LABS: Basophils Percent Auto 0.3 % (0.2-1.2); Eosinophils Absolute Auto 0.2 K/mm3 (0-0.3); Hematocrit 36.1 % (42.0-52.0); Hemoglobin 12.1 g/dL (14.0-18.0); Immature Granulocyte Absolute 0.02 K/mm3 (0.00-0.031); Immature Granulocyte Percent A 0.3 % (0-0.5); Lymphocytes Absolute Auto 2.54 K/mm3 (0.9-3.2); Lymphocytes Percent Auto 34.1 % (18.3-44.2); Mean Corpuscular HGB Conc 33.5 g/dl (32-36); Mean Corpuscular Hemoglobin 27.9 pg (26-34); Mean Corpuscular Volume 83.4 fl (80-100); Mean Platelet Volume 9.2 fl (7.4-10.4); Monocytes Absolute Auto 0.7 K/mm3 (0.1-0.6); Monocytes Percent Auto 9.1 % (2.6-8.5); Neutrophils Percent Auto 54.2 % (45.5-73.1); Platelet Count Result 235 k/mm3 (150-375); Red Blood Count 4.33 M/mm3 (4.6-6.20); Red Cell Distribution Width 14.5 % (11.5-14.5); White Blood Count 7.5 K/mm3 (4.5-10.0)
[2020-10-11 18:39] LABS: Alanine Aminotransferase 38 U/L (4-50); Albumin Level 4.1 g/dL (3.5-5.1); Alkaline Phosphatase 69 U/L (38-126); Anion Gap 7 mmol/L (8-16); Aspartate Amino Transferase 36 U/L (17-59); Bilirubin,Total 0.4 mg/dL (0.2-1.3); Blood Urea Nitrogen 16 mg/dL (9-20); Calcium 8.9 mg/dL (8.4-10.2); Carbon Dioxide 24 mmol/L (22-30); Chloride 107 mmol/L (98-107); Estimated CRCL calculation 82 ml/min; Estimated Glomerular Filt Rate > 60; Glucose 97 mg/dL (65-110); Potassium 4.1 mmol/L (3.4-5.0); Sodium 138 mmol/L (137-145)
[2020-10-11 18:41] LABS: Partial Thromboplastin Time 26.4 SECONDS (22.3-36.8)
[2020-10-11 19:00] VITALS: BP 147/114; PULSE 75; RESP 14; O2SAT 100
--- NOTE | 2020-10-11 19:00 | PC.NURSE ---
assumed care of pt. at this time. Report from RAJESH Clay
--- NOTE | 2020-10-11 19:20 | PC.NURSE ---
Assumed care of pt. at this time. Report from RAJESH Clay
[2020-10-11 19:48] LABS: Hematocrit 33.4 % (42.0-52.0); Hemoglobin 11.4 g/dL (14.0-18.0)
[2020-10-11 21:07] VITALS: BP 153/109; PULSE 62; RESP 14; O2SAT 100
[2020-10-11 21:20] VITALS: BP 159/110; PULSE 65; RESP 14; O2SAT 100
[2020-10-11 21:35] VITALS: BP 153/96; PULSE 63; RESP 16; O2SAT 100
[2020-10-11 21:43] VITALS: BMI 28.3
--- NOTE | 2020-10-11 21:47 | ADMGEN ---
This patient, Rehan Reilly Jr., was admitted to [facility]. Patient/family oriented to hospital policies and general routines including ID bracelet, bed and alarms, visiting hours, pain management, procedures, bathroom and other care routines, personal items, smoking policy, room service/diet, and visiting hours. Information on how to activate the Rapid Response Team has been discussed. Patient/Family are encouraged to report perceived risks to care and to ask questions if they do not understand what they are told or what they should do.
[2020-10-11 21:53] VITALS: BMI 28.3
[2020-10-11] MEDS: SODIUM CHLORIDE 0.9% IV 1,000 ML 125 ML IV CONT (22:06)
--- NOTE | 2020-10-11 23:05 | PM.IMHP ---
H&P: HPI History of Present Illness Date/Time: 10/11/20 23:05 Chief Complaint: Rectal bleeding after colonoscopy. Narrative: This is a pleasant 50-year-old male with obstructive sleep apnea who presented to the emergency department earlier today for evaluation of rectal bleeding after colonoscopy with polypectomy performed yesterday per Dr. Early. Last evening upon returning home he started to pass a small amount of blood per rectum which he assumed was probably normal. As the evening progressed he began passing large amounts of blood admixed with clots. Today at work I believe he had 3 such episodes and he decided to come in today for evaluation. His hemoglobin on arrival was 2.5 g lower when compared to labs done in May 2020 and he is being admitted in this setting for closer monitoring. Since admission to the floor he has had 1 further bloody bowel movement. He denies tenesmus and pain with the bowel movements. He is not feeling lightheaded or dizzy. No epigastric pain, abdominal pain, nausea, vomiting, or diaphoresis. Review of Systems Review of Systems: Twelve systems were reviewed with pertinent positives and negatives as per HPI. No fever, chills, or sweats. No recent cold or flu symptoms. He denies chest pain shortness of breath. He has been told that his blood pressures are a bit high when he visits the doctor though he has never been formally diagnosed with hypertension. He does have blood pressure cuffs at home but does not necessarily monitor them daily. He denies headache and chest pain. No nausea or vomiting. Except as documented, all other systems were reviewed and are negative. [facility] Past Medical History Medical History (Updated 10/11/20 @ 23:38 by Kami Hansen PA-C) Degenerative joint disease Diverticulitis large intestine Gastroesophageal reflux disease Lumbar disc disease Migraine Obstructive sleep apnea treated with BiPAP (11/2019) Surgical History Surgical History (Updated 10/11/20 @ 23:11 by Kami Hansen PA-C) History of arthroscopy of right knee (03/2019) History of colonoscopy with polypectomy (10/10/20) Family History Family History Father Lung cancer Mother , Old age per Rehan Hypertension Atrial fibrillation Social History Social History Social History: Surrogate decision maker: Ashwini Arteaga, significant other. Code status: Full code. Smoking packs per day: 1.5 Smoking cigarettes per day: 30.0 Years smoked: 10 Smoking pack-years: 15.00 Smoking status: Former smoker Tobacco type: cigarettes Second hand tobacco smoke exposure: Yes Smoking end date: 02/09/98 Alcohol intake: current Drinks per week: 3 Substance use: current Substance use type: marijuana Last use: 10/08/20 Additional occupation/education comments: Works for [employer]. Meds Home Medications and Allergies Home Medications Medication Instructions Recorded Confirmed Type famotidine 20 mg PO DAILY 10/11/20 10/11/20 History multivit with min-folic acid 1 tablet PO DAILY 10/11/20 10/11/20 History [Adult One Daily Multivitamin] Allergies Allergy/AdvReac Type Severity Reaction Status Date / Time Penicillins Allergy Severe Anaphylaxis Verified 10/11/20 17:46 Vital Signs Vital Signs - 24 hr 10/11/20 17:39 10/11/20 19:00 10/11/20 21:07 Temperature 98.2 F Pulse Rate 80 75 62 Respiratory Rate 20 14 14 Blood Pressure 154/97 H 147/114 H 153/109 H Pulse Oximetry 100 100 100 10/11/20 21:20 10/11/20 21:35 Temperature Pulse Rate 65 63 Respiratory Rate 14 16 Blood Pressure 159/110 H 153/96 H Pulse Oximetry 100 100 Exam Narrative: General: Well-developed male in the semi-Izquierdo position in bed in no distress. Weight: 89.6 kg. BMI: 28.3. HEENT: Normocephalic, atraumatic. PERRL, EOMI. Sclerae anicteric. Ora
[2020-10-12] VITALS (11 sets, daily range): BP systolic 97–153; BP diastolic 63–91; PULSE 56–81; RESP 12–18; TEMP 36.2–37.3; O2SAT 95–100
--- NOTE | 2020-10-12 01:18 | PC.NURSE ---
administrative staff supervisor and Dr. Santana made aware of patient's fall.
--- NOTE | 2020-10-12 01:22 | PC.NURSE ---
0105 pt ambulated to bathroom to void and fell, doesn't remember falling. doesn;t seemed to hit head or hurting any other part of body. pt did get up with assistance to sit on toilet to have a bowel movement. pt seemed to be diaphoretic. vital signs taking when pt got backed to bed, bp 97/63, hr 56, o2 sat 100%. pt also became nauseated while sitting on toilet, dry heaves with nausea. dr masters and aminah(clerical warehouse worker) notified. luisarina on floor at 0125. pt resting in bed now. will notify dr masters for any further orders.
[2020-10-12] MEDS: SODIUM CHLORIDE 0.9% IV 500 ML 999 ML IV CONT (02:00)
--- NOTE | 2020-10-12 02:50 | PC.NURSE ---
This patient, Rehan Reilly Jr., was transferred to [[id number] ] on 10/12/20 at 0245. Personal belongings sent with patient. Report given to [jeff ]. Appropriate documentation sent with patient.
[2020-10-12 03:48] LABS: Hematocrit 31.8 % (42.0-52.0); Hemoglobin 10.5 g/dL (14.0-18.0)
[2020-10-12] MEDS: PANTOPRAZOLE SODIUM IV 40 MG VIAL 80 MG IV PUSH (05:54)
[2020-10-12 07:02] LABS: Hemoglobin 9.8 g/dL (14.0-18.0)
[2020-10-12] MEDS: MAGNESIUM CITRATE 300 ML BTL PO (08:09)
[2020-10-12] MEDS: BISACODYL 5 MG TABLET EC 20 MG PO (08:09)
--- NOTE | 2020-10-12 12:18 | WPDGICN ---
Assessment and Plan Assessment and plan (1) Rectal bleeding: Code(s): K62.5 - Hemorrhage of anus and rectum Status: Acute Assessment and Plan: most likely post-polypectomy bleeding, largest one located in cecum. Also had several diverticula will do colonoscopy (2) Acute blood loss anemia: Code(s): D62 - Acute posthemorrhagic anemia Status: Acute Assessment and Plan: monitor h/h (3) Near syncope: Code(s): R55 - Syncope and collapse Status: Acute Assessment and Plan: related to gib, treated medically and will proceed with scopes now (4) Gastroesophageal reflux disease: Code(s): K21.9 - Gastro-esophageal reflux disease without esophagitis Status: Acute Assessment and Plan: he has been complaining lately of more reflux and never had egd, will proceed probably will need also ppi (5) Obstructive sleep apnea on CPAP: Onset Date: 11/2019 Code(s): G47.33 - Obstructive sleep apnea (adult) (pediatric); Z99.89 - Dependence on other enabling machines and devices Status: Acute (6) S/P colonoscopy with polypectomy: Code(s): Z98.890 - Other specified postprocedural states Status: Acute GI Consult Note Consult date/time: 10/12/20 12:18 Reason for consult: rectal bleeding, acute blood loss anemia HPI: Rehan Reilly Jr. is a 50 year old male who I met 10/10/20 for outpatient colonoscopy and removed total of 6 polyps ranging in size 5-10 mm using snare, largest one with hot snare. He went home but then noticed bright red blood and then clots, feeling lightheaded and like passing out. He came to hospital and admitted. Hb 14 at baseline, when he arrived 12 and then 9.8. He also mentioned that last several weeks with epigastric discomfort and feeling a knot, he asked me couple days ago that also needed EGD. Review of Systems Constitutional: Constitutional: Denies chills Eyes: Eyes: Reports no additional eye complaints ENT: Reports Normal hearing present Cardiovascular: Cardiovascular: Denies chest pain Respiratory: Respiratory: Denies dyspnea Gastrointestinal: Gastrointestinal: Reports hematochezia Genitourinary: Genitourinary: Denies dysuria Musculoskeletal: Musculoskeletal: Denies neck pain Integumentary/Breasts: Skin/Breast: Denies dry skin Neurologic: Denies headache(s) Psychiatric: Psychiatric: Reports no additional psychiatric complaints [facility] Past Medical History Medical History (Updated 10/12/20 @ 13:49 by Sandra Roberson PA-C) Degenerative joint disease Diverticulitis large intestine Gastroesophageal reflux disease Lumbar disc disease Migraine Obstructive sleep apnea treated with BiPAP (11/2019) Surgical History Surgical History (Updated 10/11/20 @ 23:11 by Kami Hansen PA-C) History of arthroscopy of right knee (03/2019) History of colonoscopy with polypectomy (10/10/20) Family History Family History Father Lung cancer Mother , Old age per Rehan Hypertension Atrial fibrillation Social History Social History Social History: Surrogate decision maker: Ashwini Arteaga, significant other. Code status: Full code. Smoking packs per day: 1.5 Smoking cigarettes per day: 30.0 Years smoked: 10 Smoking pack-years: 15.00 Smoking status: Former smoker Tobacco type: cigarettes Second hand tobacco smoke exposure: Yes Smoking end date: 02/09/98 Alcohol intake: current Drinks per week: 3 Substance use: current Substance use type: marijuana Last use: 10/08/20 Additional occupation/education comments: Works for [employer]. Meds Home Medications and Allergies Home Medications Medication Instructions Recorded Confirmed Type famotidine 20 mg PO DAILY 10/11/20 10/11/20 History multivit with min-folic acid 1 tablet PO
[2020-10-12 13:12] LABS: Hematocrit 30.1 % (42.0-52.0)
--- NOTE | 2020-10-12 13:35 | WPDANESEPPF ---
Anes - Initial Pre Proc Eval Procedure: Operation Date: 10/12/20 14:15 Proposed Procedures p Colonoscopy - Marco Early MD Date/Time: 10/12/20 13:35 Surgeon: Sandra Roberson PA-C Pre Op Diagnosis: Rectal Bleeding s/p Polyectomy Patient Data Age: 50 Gender: M Height: 1.78 m Weight: 91.1 kg Last Vital Signs Temp 36.8 C 10/12/20 04:03 Pulse 72 10/12/20 04:03 Resp 18 10/12/20 04:03 BP 143/81 H 10/12/20 04:03 Pulse Ox 100 10/12/20 04:03 Allergies Allergy/AdvReac Type Severity Reaction Status Date / Time Penicillins Allergy Severe Anaphylaxis Verified 10/12/20 13:37 Home Medications Medication Instructions Recorded Confirmed Type famotidine 20 mg PO DAILY 10/11/20 10/11/20 History multivit with min-folic acid 1 tablet PO DAILY 10/11/20 10/11/20 History [Adult One Daily Multivitamin] Laboratory Tests 10/11/20 10/11/20 10/11/20 18:05 18:05 18:05 WBC 7.5 K/mm3 K/mm3 (4.5-10.0) RBC 4.33 M/mm3 L M/mm3 (4.6-6.20) Hgb 12.1 g/dL L g/dL (14.0-18.0) Hct 36.1 % L % (42.0-52.0) MCV 83.4 fl fl (80-100) MCH 27.9 pg pg (26-34) MCHC 33.5 g/dl g/dl (32-36) RDW 14.5 % % (11.5-14.5) Plt Count 235 k/mm3 k/mm3 (150-375) MPV 9.2 fl fl (7.4-10.4) Immature Gran % (Auto) 0.3 % % (0-0.5) Neut % (Auto) 54.2 % % (45.5-73.1) Lymph % (Auto) 34.1 % % (18.3-44.2) [place] % (Auto) 9.1 % H % (2.6-8.5) Eos % (Auto) 2.0 % % (0-4.4) Baso % (Auto) 0.3 % % (0.2-1.2) Lymph # (Auto) 2.54 K/mm3 K/mm3 (0.9-3.2) [place] # (Auto) 0.7 K/mm3 H K/mm3 (0.1-0.6) Eos # (Auto) 0.2 K/mm3 K/mm3 (0-0.3) Baso # (Auto) 0.0 K/mm3 K/mm3 (0.0-0.1) Abs Immat Gran (auto) 0.02 K/mm3 K/mm3 (0.00-0.031) Absolute Neuts (auto) 4.0 K/mm3 K/mm3 (1.3-6.7) Absolute Nucleated RBC 0.0 K/mm3 K/mm3 (0.0-0.012) Nucleated RBC % 0.0 % % (0.0-0.2) PT 13.0 Seconds Seconds (11.1-14.7) INR 1.0 APTT 26.4 SECONDS SECONDS (22.3-36.8) Sodium 138 mmol/L mmol/L (137-145) Potassium 4.1 mmol/L mmol/L (3.4-5.0) Chloride 107 mmol/L mmol/L (98-107) Carbon Dioxide 24 mmol/L mmol/L (22-30) Anion Gap 7 mmol/L L mmol/L (8-16) BUN 16 mg/dL mg/dL (9-20) Creatinine 1.00 mg/dL mg/dL (0.7-1.3) Estim Creat Clear Calc 82 ml/min ml/min Estimated GFR > 60 (59 - ) Glucose 97 mg/dL mg/dL (65-110) Calcium 8.9 mg/dL mg/dL (8.4-10.2) Total Bilirubin 0.4 mg/dL mg/dL (0.2-1.3) AST 36 U/L U/L (17-59) ALT 38 U/L U/L (4-50) Alkaline Phosphatase 69 U/L U/L (38-126) Total Protein 7.0 g/dL g/dL (6.3-8.2) Albumin 4.1 g/dL g/dL (3.5-5.1) Blood Type Antibody Screen 10/11/20 10/11/20 10/12/20 18:05 19:42 01:01 WBC RBC Hgb 11.4 g/dL L g/dL 10.5 g/dL L g/dL (14.0-18.0) (14.0-18.0) Hct 33.4 % L % 31.8 % L % (42.0-52.0) (42.0-52.0) MCV MCH MCHC RDW Plt Count MPV Immature Gran % (Auto) Neut % (Auto) Lymph % (Auto) [place] % (Auto) Eos % (Auto) Baso % (Auto) Lymph # (Auto) [place] # (Auto) Eos # (Auto) Baso # (Auto) Abs Immat Gran (auto) Absolute Neuts (auto) Absolute Nucleated RBC Nucleated RBC % PT INR APTT Sodium Potassium Chloride Carbon Dioxide Anion Gap BUN
--- NOTE | 2020-10-12 13:39 | PM.IMPN ---
Progress Note: A&P Assessment and Plan (1) Rectal bleeding: Code(s): K62.5 - Hemorrhage of anus and rectum Status: Acute Assessment and Plan: Most likely bleeding from polypectomy site (had screening colonoscopy on 10/10/20 with polypectomy). He has been seen in consultation by Gastroenterology and will be undergoing colonoscopy this afternoon. (2) Acute blood loss anemia: Code(s): D62 - Acute posthemorrhagic anemia Status: Acute Assessment and Plan: Secondary to the above. Hemoglobin in May 2020 was 14.6. Hemoglobin was low at presentation at 12.1 and has declined to 9.8. Repeat hemoglobin this afternoon 10.0 and he has not had any further bleeding since early this morning. Continue to monitor H&H q6 (3) Near syncope: Code(s): R55 - Syncope and collapse Status: Acute Assessment and Plan: Likely secondary to blood loss. He has been rehydrated with IV fluids and no ongoing blood loss today. Vital signs are stable. Fall precautions. (4) Gastroesophageal reflux disease: Code(s): K21.9 - Gastro-esophageal reflux disease without esophagitis Status: Acute Assessment and Plan: Asymptomatic. Continue famotidine. (5) Elevated blood pressure reading: Code(s): R03.0 - Elevated blood-pressure reading, without diagnosis of hypertension Status: Acute Assessment and Plan: Has been noted in the past and is being monitored by the patient's primary care provider. Blood pressure has been generally well controlled today. Last BP 126/78. Continue to monitor daily. Discussed ambulatory blood pressure monitoring and the need to keep a log to bring to his primary care provider on follow-up. (6) Obstructive sleep apnea treated with BiPAP: Onset Date: 11/2019 Code(s): G47.33 - Obstructive sleep apnea (adult) (pediatric) Status: Acute Assessment and Plan: BiPAP will be provided for the patient to use while hospitalized. Subjective Date/time seen: 10/12/20 13:39 Interval history: Date of service: 10/12/2020 Rehan Reilly is a 50-year-old male with a history of diverticulitis, KENNETH on BiPAP, migraines, and recent screening colonoscopy with polypectomy on 10/10/2020 who is seen in follow-up for rectal bleeding. He is feeling fairly well today. Last episode of rectal bleeding was about 2:00 a.m. this morning. At that time when ambulating to the bathroom, he had a near syncope and was lowered to the ground by nursing staff. He has had some gas today but no bowel movements or rectal bleeding. Denies abdominal pain, cramping, or bloating. This morning he had some dry heaves that improved with antiemetics. He denies dizziness or lightheadedness at this time. No shortness of breath, chest pain, or palpitations. He has been able to ambulate independently today with no issues. Denies headaches, body aches, fever, chills, urinary symptoms. He has no additional concerns at this time and he is in good spirits. Review of Systems Review of Systems: All systems reviewed & are unremarkable except as noted in HPI and below Exam Narrative: Mr. Reilly is a well-nourished, well-appearing 50-year-old male who is lying supine in bed. He appears comfortable and is in NARD. Neuro: awake, alert and oriented x4, speech clear, no focal neuro deficits noted HEENMT: normocephalic, atraumatic, EOMI, sclerae anicteric, moist oral mucosa Neck: supple, no lymphadenopathy Respiratory: clear to auscultation bilaterally, nonlabored breathing Cardio: regular rate, regular rhythm with S1-S2 Abdomen: nondistended, normoactive bowel sounds, soft, nontender to palpation Extremities: no edema, erythema, or tenderness to palpation, DP pulses 2+ bilaterally Skin: no rashes or lesions, warm and dry Psych: appropriate mood and affect, judgment and insight intact Objective Data Vital Signs Vital Signs: Vital Signs - 24 hr
[2020-10-12] MEDS: LACTATED RINGERS 1,000 ML 150 ML IV CONT (13:41)
[2020-10-12] MEDS: BENZOCAINE (*SP) 60 ML SPRAY CAN (HURRICAINE) 1 SPRAY MUCOUS MEM (14:10)
[2020-10-12 18:46] LABS: Hematocrit 31.4 % (42.0-52.0); Hemoglobin 10.2 g/dL (14.0-18.0)
[2020-10-12] MEDS: ONDANSETRON INJ 4 MG/2 ML VIAL IV PUSH (20:31)
[2020-10-12] MEDS: CALCIUM CARBONATE (TUMS) 500 MG (200 MG ELEMENTAL) PO (20:31)
[2020-10-13 00:54] LABS: Hematocrit 27.3 % (42.0-52.0); Hemoglobin 9.1 g/dL (14.0-18.0)
[2020-10-13 04:41] VITALS: BP 152/73; PULSE 84; RESP 12; TEMP 37.4; O2SAT 99
[2020-10-13 05:38] VITALS: TEMP 37.4
[2020-10-13 07:45] LABS: Hematocrit 28.5 % (42.0-52.0); Hemoglobin 9.3 g/dL (14.0-18.0)
[2020-10-13 07:47] LABS: Hemoglobin 9.2 g/dL (14.0-18.0)
[2020-10-13 08:04] LABS: Anion Gap 5 mmol/L (8-16); Blood Urea Nitrogen 10 mg/dL (9-20); Calcium 8.6 mg/dL (8.4-10.2); Carbon Dioxide 27 mmol/L (22-30); Chloride 103 mmol/L (98-107); Estimated CRCL calculation 75 ml/min; Estimated Glomerular Filt Rate > 60; Glucose 94 mg/dL (65-110); Potassium 3.6 mmol/L (3.4-5.0); Sodium 135 mmol/L (137-145)
--- NOTE | 2020-10-13 08:57 | WPDGIPROGNO ---
Progress Note: A&P Assessment and Plan (1) Rectal bleeding: Code(s): K62.5 - Hemorrhage of anus and rectum Status: Acute Assessment and Plan: no more bleeding and cause of rectal bleeding most likely from large cecal polyp had been removed 3 days ago with hot snare, treated with clips hb low but stable, ok to advance diet and he can go home iron supplement he had tubular adenoma polyps, path discussed with patient and will need colonoscopy in 3 years (2) Acute blood loss anemia: Code(s): D62 - Acute posthemorrhagic anemia Status: Acute Assessment and Plan: hb low but stable now (3) Post-polypectomy bleeding: Status: Acute (4) Near syncope: Code(s): R55 - Syncope and collapse Status: Acute Assessment and Plan: resolved (5) Erosive gastritis: Code(s): K29.60 - Other gastritis without bleeding Status: Acute Assessment and Plan: egd showed erosive/ulcerative gastritis, no bleeding. Pending bx he can go home with protonix daily (or equivalent) (6) Obstructive sleep apnea treated with BiPAP: Onset Date: 11/2019 Code(s): G47.33 - Obstructive sleep apnea (adult) (pediatric) Status: Acute Subjective Date/time seen: 10/13/20 08:57 Interval history: egd showed erosive gastritis without bleeding, colonoscopy with post-polypectomy ulcers with stigmata of pevious bleeding, treated with clips. Hb 9.2, he is feeling better, no pain and has not had more BM's. Review of Systems Review of Systems: All systems reviewed & are unremarkable except as noted in HPI and below Exam Const: General: comfortable and no acute distress HENMT: General nose exam: Normal nares present Eyes: General: appearance normal, both eyes and all related structures Neck: Neck: no JVD Resp: Auscultation: clear to auscultation bilaterally Cardio: Rate: regular rate Rhythm: regular rhythm GI: Inspection: non-distended GI Palp: Yes Soft to palpation and No Guarding due to palpation present (GI) Auscultation: normal bowel sounds Skin: General skin exam: no rashes or lesions noted Neuro: General: gait normal Speech: normal speech Motor exam (neuro): Normal motor muscle tone present throughout Extrem: General: normal to inspection Psych: Mental Status: mental status grossly normal Objective Data Vital Signs Vital Signs: Vital Signs - 24 hr 10/12/20 13:39 10/12/20 14:45 10/12/20 14:55 Temperature 97.1 F L Pulse Rate 81 76 70 Respiratory Rate 18 15 14 Blood Pressure 126/78 111/64 118/66 Pulse Oximetry 99 99 97 10/12/20 15:05 10/12/20 15:59 10/12/20 20:23 Temperature 97.5 F L 99.1 F Pulse Rate 80 70 79 Respiratory Rate 16 16 12 Blood Pressure 153/87 H 150/90 H 148/91 H Pulse Oximetry 95 100 100 10/13/20 04:41 10/13/20 05:38 Temperature 99.4 F 99.4 F Pulse Rate 84 Respiratory Rate 12 Blood Pressure 152/73 H Pulse Oximetry 99 Intake/Output Intake/Output: Intake & Output 10/10/20 10/11/20 10/12/20 10/13/20 23:59 23:59 23:59 23:59 Intake Total 200 750 500 Balance 200 750 500 Meds/Results Medications: Active Medications Generic Name Dose Route Start Last Admin Trade Name Freq PRN Reason Stop Dose Admin Calcium Carbonate 200 mg 10/12/20 20:05 10/12/20 20:31 Calcium Carbonate (Tums) 500 Mg (200 Mg Elemental) PO 200 mg Q6H PRN Administration Indigestion Multivitamins/Calcium 1 tablet 10/13/20 09:00 Therapeutic Multivitamins/Minerals Tab (*Bkc) PO DAILY [facility] Ondansetron HCl 4 mg 10/11/20 19:11 10/12/20 20:31 Ondansetron Inj 4 Mg/2 Ml Vial IV PUSH 4 mg Q4H PRN Administration Nausea Pantoprazole Sodium 40 mg 10/13/20 09:00 Pantoprazole 40 Mg Tablet PO [facility] Labs Labs: Laboratory Results - last 24 hr 10/12/20 10/12/20 10/13/20 12:52 18:17 00:37 Hgb 10.0 L 10.2 L 9.1 L Hct 30.1 L 31.4 L 27.3 L Sodium Potassium Chloride
[2020-10-13] MEDS: THERAPEUTIC MULTIVITAMINS/MINERALS TAB (*BKC) 1 TABLET PO (09:38)
[2020-10-13] MEDS: PANTOPRAZOLE 40 MG TABLET PO (09:38)
--- NOTE | 2020-10-13 13:35 | PM.DS ---
DS: Admitting Diagnosis Admitting Diagnosis rectal bleeding DS: Discharge Diagnosis Discharge Diagnosis (1) Post-polypectomy bleeding: Status: Acute Assessment and Plan: Presented with rectal bleeding after a screening colonoscopy on 10/10/2020 with polypectomy performed. He was seen in consultation by Gastroenterology and underwent repeat colonoscopy on 10/12/2020 which demonstrated to polypectomy ulcers with stigmata of bleeding. This was clipped. He had no further bleeding. Diet was advanced and he was able to tolerate a regular diet without issues. Follow-up with gastroenterology as needed. Next colonoscopy in 3 years for screening. Started on oral iron supplement and daily Protonix per Gastroenterology recommendations (2) Acute blood loss anemia: Code(s): D62 - Acute posthemorrhagic anemia Status: Acute Assessment and Plan: Secondary to the above. Hemoglobin in May 2020 was 14.6. Hemoglobin was low at presentation at 12.1 and has declined to 9.1. Patient had no further bleeding and H&H remained stable. Hemoglobin 9.8 at time of discharge. Repeat H&H in 1 week. (3) Near syncope: Code(s): R55 - Syncope and collapse Status: Acute Assessment and Plan: Likely secondary to blood loss. He was rehydrated with IV fluids and had no further blood loss. Vital signs remained stable. Fall precautions were implemented. He was able to ambulate independently without lightheadedness, dizziness, weakness. (4) Gastroesophageal reflux disease: Code(s): K21.9 - Gastro-esophageal reflux disease without esophagitis Status: Acute Assessment and Plan: Asymptomatic. Continue famotidine. (5) Elevated blood pressure reading: Code(s): R03.0 - Elevated blood-pressure reading, without diagnosis of hypertension Status: Acute Assessment and Plan: Has been noted in the past and is being monitored by the patient's primary care provider. Blood pressures were monitored during hospital stay and were fluctuant. He will monitor his blood pressure at home and follow-up with his PCP with a log of blood pressure readings to determine whether to start an antihypertensive agent. (6) Obstructive sleep apnea treated with BiPAP: Onset Date: 11/2019 Code(s): G47.33 - Obstructive sleep apnea (adult) (pediatric) Status: Acute Assessment and Plan: Continue with BiPAP DS: Summary Hospital Course Hospital Course: Date of admission: 10/11/2020 Date of discharge: 10/13/2020 Rehan Reilly is a 50-year-old male with a history of diverticulitis, KENNETH on BiPAP, migraines, and recent screening colonoscopy with polypectomy on 10/10/2020 who presented to the emergency department on 10/11/2020 with complaints of rectal bleeding and passage of blood clots. On presentation to the emergency department, his BP was slightly elevated, additional vital signs stable, hemoglobin 11.4, hematocrit 33.4, and BMP within normal limits. He was admitted to the hospitalist service for further evaluation and management and seen in consultation by Gastroenterology. Colonoscopy was repeated and bleeding polypectomy ulcer was clipped. He had no further blood loss. He was feeling much better. Hemoglobin and hematocrit remained stable. Given his overall improvement, he was determined to no longer require inpatient care and was felt to be stable for discharge. We discussed worrisome signs and symptoms for which to return and he was educated on his medications. He was discharged in hemodynamically stable condition on 10/13/2020. Status at Discharge Functional status at discharge: independent ambulation Overall status at discharge: patient is back to baseline Time Spent with Patient Time attestation: Total time spent providing and/or coordinating discharge services: 45 minutes Time spent: Greater than 30 minutes Exam Narrative: Mr. Reilly is a well
[2020-10-13 13:41] LABS: Hematocrit 29.4 % (42.0-52.0); Hemoglobin 9.8 g/dL (14.0-18.0)
== END 2020-10-13 15:00 | disposition home or self-care (01) | DRG 920 ==
LOC: ANHED 18:29 → ANHCPC 21:11 → ANH3MED 10-12 02:57
PROVIDERS: Internal Medicine Gastroenterology; Physician Assistant; Admitting Provider Internal Medicine; Emergency Provider General Practice; PCP Emergency Medicine; Visit Provider Internal Medicine
PROC: 0DJD8ZZ Inspection of Lower Intestinal Tract, Via Natural or Artificial Opening Endoscopic (ICD-10-PCS; CPT 45378; principal; 2020-10-12 14:15)
DX: K91.840 Postprocedural hemorrhage of a digestive system organ or structure following a digestive system procedure (principal); D62 Acute posthemorrhagic anemia; K63.3 Ulcer of intestine; Y83.8 Other surgical procedures as the cause of abnormal reaction of the patient, or of later complication, without mention of misadventure at the time of the procedure; R55 Syncope and collapse; K29.60 Other gastritis without bleeding; K21.9 Gastro-esophageal reflux disease without esophagitis; K57.30 Diverticulosis of large intestine without perforation or abscess without bleeding; R03.0 Elevated blood-pressure reading, without diagnosis of hypertension; G47.33 Obstructive sleep apnea (adult) (pediatric); Z86.010 Personal history of colon polyps; Z88.0 Allergy status to penicillin; Z98.890 Other specified postprocedural states
CPT/HCPCS: 36415; 80048; 80053; 85014; 85018; 85025; 85610; 85730; 86850; 86900; 86901; 87081; 88305; 96361; 96374; 99285; A9270; C9113; G0378; J0131; J2405; J2704; J3010; J7030; J7040; J7120

== ENCOUNTER 2020-10-29 01:36 | Day surgery (SDC) | payer BC, MEDICAID, SELFPAY ==
[2020-10-23 09:39] VITALS: BMI 28.8
[2020-10-29] MEDS: LACTATED RINGERS 1,000 ML 150 ML IV CONT (11:34)
[2020-10-29 11:35] VITALS: BP 149/79; PULSE 61; RESP 20; TEMP 36.4; O2SAT 99; BMI 28.7
--- NOTE | 2020-10-29 11:38 | P.PNAN_ITS ---
Anes - Initial Pre Proc Eval Procedure: Operation Date: 10/29/20 12:30 Proposed Procedures p Esophagogastroduodenoscopy - Marco Early MD Date/Time: 10/29/20 11:38 Surgeon: Marco Early MD Pre Op Diagnosis: GERD Patient Data Age: 50 Gender: M Height: 1.78 m Weight: 90.8 kg Last Vital Signs Temp 97.5 F L 10/29/20 11:35 Pulse 61 10/29/20 11:35 Resp 20 10/29/20 11:35 BP 149/79 H 10/29/20 11:35 Pulse Ox 99 10/29/20 11:35 Allergies Allergy/AdvReac Type Severity Reaction Status Date / Time Penicillins Allergy Severe Anaphylaxis Verified 10/29/20 11:26 Home Medications Medication Instructions Recorded Confirmed Type multivit with min-folic acid 1 tablet PO DAILY 10/11/20 10/23/20 History ferrous gluconate 324 mg PO DAILY #30 tablet 10/13/20 10/23/20 Rx pantoprazole 40 mg PO QAM 30 Days #30 tablet 10/13/20 10/23/20 Rx famotidine 40 mg tablet 40 mg PO DAILY 10/23/20 10/29/20 History Patient hx anesthesia problems: none Family hx anesthesia problems: none PMFSH Past Medical History Medical History Degenerative joint disease Diverticulitis large intestine Erosive gastritis Gastroesophageal reflux disease Lumbar disc disease Migraine Obstructive sleep apnea treated with BiPAP (11/2019) Post-polypectomy bleeding Surgical History Surgical History History of arthroscopy of right knee (03/2019) History of colonoscopy with polypectomy (10/10/20) Family History Family History Father Lung cancer Mother , Old age per Rehan Hypertension Atrial fibrillation Social History Social History Social History: Surrogate decision maker: Ashwini Arteaga, significant other. Code status: Full code. Smoking packs per day: 1.5 Smoking cigarettes per day: 30.0 Years smoked: 10 Smoking pack-years: 15.00 Smoking status: Former smoker Tobacco type: cigarettes Second hand tobacco smoke exposure: Yes Smoking end date: 02/09/98 Alcohol intake: current Drinks per week: 3 Substance use: current Substance use type: marijuana Last use: 10/08/20 Living arrangements: with family Additional occupation/education comments: Works for [employer] Final PreProcedure Day of Procedure 10/29/20 11:38 Patient weight: overweight Heart: regular rate and rhythm Lungs: clear to auscultation Airway: Mallampati scale class II Neurological: alert and oriented Last oral intake: >/= 8 hours ASA classification: II Emergent: no Anesthetic plan: proceed Anesthesia type and monitoring: general GIVS and standard monitoring Informed Consent: The patient's anesthetic plan and its attendant risks and benefits were discussed with the patient/family/POA. Questions were solicited and answers provided to the satisfaction of the patient/family/POA.
--- NOTE | 2020-10-29 11:44 | WPDHPUPDATE1 ---
History and Physical Update Update Date/Time: 10/29/20 11:44 History and Physical has been reviewed, including an updated exam of the patient. There are NO changes in the patient's condition. Risks, benefits, and alternatives have been discussed and questions answered. Patient agrees to proceed with procedure.
[2020-10-29] MEDS: BENZOCAINE (*SP) 60 ML SPRAY CAN (HURRICAINE) 1 SPRAY MUCOUS MEM (11:47)
[2020-10-29 12:07] VITALS: BP 129/81; PULSE 57; RESP 21; O2SAT 100
[2020-10-29 12:17] VITALS: BP 138/96; PULSE 54; RESP 18; O2SAT 100
[2020-10-29 12:27] VITALS: BP 140/80; PULSE 58; RESP 21; O2SAT 100
== END 2020-10-29 12:37 | disposition home or self-care (01) ==
PROVIDERS: PCP Emergency Medicine; Visit Provider Internal Medicine Gastroenterology
PROC: 0DJ08ZZ Inspection of Upper Intestinal Tract, Via Natural or Artificial Opening Endoscopic (ICD-10-PCS; CPT 43235; principal; 2020-10-29 12:30)
DX: K21.00 Gastro-esophageal reflux disease with esophagitis, without bleeding (principal); K29.70 Gastritis, unspecified, without bleeding; G47.33 Obstructive sleep apnea (adult) (pediatric); Z87.891 Personal history of nicotine dependence
CPT/HCPCS: 43239; 88305; 88312; J7120

== ENCOUNTER 2021-01-09 08:24 | Emergency (ER) | payer BC, MEDICAID, SELFPAY ==
[2021-01-09 08:34] VITALS: BP 154/92; PULSE 63; RESP 16; TEMP 37; O2SAT 98
--- NOTE | 2021-01-09 08:56 | ED.GENADULT ---
HPI - General Adult General Chief complaint: Upper Respiratory Infection Stated complaint: sinus infection Source: patient Mode of arrival: ambulatory Limitations: no limitations History of Present Illness HPI narrative: Patient is a 50-year-old -Citizen Of [place] male who presents to the [facility] via POV for evaluation of what he believes to be a sinus problem that began at approximately 2:30 AM this morning. He reports frontal headache, bilateral eye pressure and seeing dots . Excedrin Migraine improves symptoms. Nothing worsens symptoms. History of Migraines. Today symptoms are identical to previous migraines. He is requesting documentation for work absence. Denies a history of hypertension, renal insufficiency, diabetes mellitus. Related Data Home Medications Medication Instructions Recorded Confirmed multivit with min-folic acid 1 tablet PO DAILY 10/11/20 01/09/21 Allergies Allergy/AdvReac Type Severity Reaction Status Date / Time Penicillins Allergy Severe Anaphylaxis Verified 01/09/21 08:56 Review of Systems Review of Systems: Pertinent negatives: fever, chills, sweats, change in appetite, poor p.o. intake, severe persistent headaches, dizziness, lymphadenopathy, blurry vision, loss of vision, photophobia, swelling, erythema, weakness, syncope, vertigo, LOC, seizure activity, memory loss, difficulty with coordination/gait/equilibrium, paresthesias, abdominal pain, nausea, vomiting, diarrhea, constipation, shortness of breath, cough, chest pain, and heart palpitations/murmurs. [facility] Past Medical History Medical History Degenerative joint disease Diverticulitis large intestine Erosive gastritis Gastroesophageal reflux disease Lumbar disc disease Migraine Obstructive sleep apnea treated with BiPAP (11/2019) Post-polypectomy bleeding Surgical History Surgical History History of arthroscopy of right knee (03/2019) History of colonoscopy with polypectomy (10/10/20) Family History Family History Father Lung cancer Mother , Old age per Rehan Hypertension Atrial fibrillation Social History Social History Social History: Surrogate decision maker: Ashwini Arteaga, significant other. Code status: Full code. Smoking packs per day: 1.5 Smoking cigarettes per day: 30.0 Years smoked: 10 Smoking pack-years: 15.00 Smoking status: Former smoker Tobacco type: cigarettes Second hand tobacco smoke exposure: Yes Smoking end date: 02/09/98 Alcohol intake: current Drinks per week: 3 Substance use: current Substance use type: marijuana Last use: 10/08/20 Additional occupation/education comments: Works for [employer]. Comments I have reviewed and agree with the patient's past medical, surgical, social, and family hx as documented by the RN. There is no relevant family history pertinent to the presenting complaint. Exam Narrative: GENERAL: Well-appearing, well-nourished, and in no acute distress. HEAD: Normocephalic, atraumatic. No sinus tenderness or facial swelling appreciated. No evidence of ear bleeding or drainage from ears. No evidence of foreign bodies. No signs of basilar skull fracture: no hemotympanum, canas's sign, or raccoon's eyes. EYES: PERRLA and EOMI. No evidence of erythema, swelling, or drainage. Photophobia appreciated upon PERRLA exam. ENT: Bilateral external ears and ear canals normal. Bilateral TMs are normal. No TM perforation. Nares clear, no septal hematoma or epistaxis. Bilateral turbinates without erythema/ swelling. Mucous membranes moist and pink. Uvula is midline without erythema and swelling. No evidence of petechial rash, cobblestoning, lesions, ulcers, erythema, swelling, exudates, peritonsilla
== END 2021-01-09 09:25 | disposition home or self-care (01) ==
PROVIDERS: Emergency Provider Nurse Practitioner Family; PCP Emergency Medicine
DX: G43.511 Persistent migraine aura without cerebral infarction, intractable, with status migrainosus (principal); Z87.891 Personal history of nicotine dependence
CPT/HCPCS: 99202; G0463

== ENCOUNTER → 2021-07-09 10:18 | Outpatient (CLI) | payer BC, MEDICAID, SELFPAY ==
--- NOTE | ~2021-07-09 | CT_ITS ---
EXAMINATION: CT abdomen pelvis wo con DATE: 07/09/2021 10:33 INDICATION: Left inguinal hernia without obstruction TECHNIQUE: Computed tomography (CT) of the abdomen and pelvis was performed without intravenous contr ast. The dose-length product (DLP) was 1000.86 mGy-cm. Automated exposure control and iterative recon struction technique were employed. COMPARISON: 05/22/2020 FINDINGS: Minimal dependent atelectasis is present in the lung bases. The heart size is normal. Withi n the limitations of noncontrast examination, the liver, spleen, pancreas, gallbladder, and adrenal g lands are normal. There is a 2 cm cyst of the right kidney lower pole. No pathologically enlarged abd ominal or pelvic lymph nodes are identified. There is no free intraperitoneal gas or evidence of katia l obstruction. Colonic diverticulosis is present without evidence of diverticulitis. IMPRESSION: 1. Stable bilateral inguinal hernias containing fat, left larger than right. There are two diverticul osis without evidence of diverticulitis. Reviewed, dictated and finalized at location F. IMPRESSION: 1. Stable bilateral inguinal hernias containing fat, left larger than right. Th ere are two diverticulosis without evidence of diverticulitis.
== END ==
PROVIDERS: PCP Emergency Medicine; Visit Provider Emergency Medicine
DX: K40.90 Unilateral inguinal hernia, without obstruction or gangrene, not specified as recurrent (principal); R10.9 Unspecified abdominal pain
CPT/HCPCS: 74176

== ENCOUNTER 2021-07-19 11:15 | Outpatient (CLI) | payer BC, MEDICAID, SELFPAY | END 2021-07-19 11:16 | disposition home or self-care (01) | LOC: ANHSURGERY 11:20 | PROVIDERS: PCP Emergency Medicine; Visit Provider Surgery | DX: K40.90 Unilateral inguinal hernia, without obstruction or gangrene, not specified as recurrent (principal); Z01.818 Encounter for other preprocedural examination | CPT/HCPCS: 36415; 86850; 86900; 86901 ==

== ENCOUNTER 2021-07-25 01:18 | Day surgery (SDC) | payer BC, MEDICAID, SELFPAY ==
[2021-07-18 08:30] VITALS: BMI 29.9
--- NOTE | 2021-07-18 08:42 | PC.NURSE ---
Report to the Outpatient Waiting Room, entrance under the green pavilion located off [facility], at time 10:00 on date 07/25/21. OR Time: 12:00. - You and your visitor will be asked a series of questions to screen for COVID 19 for your protection. - Only one visitor is allowed at this time. - The patient visitor is requested to leave or wait in car when not with patient. - A mask is required within the hospital. Patients may have clear liquids (water, carbonated beverages, clear teas, apple juice) until 3 hours prior to surgery (9:00) with a maximum of 20 ounces. - No food from midnight until time of surgery Take the following medications with a SIP of water the morning of surgery: TOPIRAMATE Medications to discontinue per physician: N/A Date to take last dose: N/A Please no make-up, nail pakistani, hairspray, perfume, deodorant, or body powder the day of surgery. No jewelry (including any body piercings) or valuables the day of surgery, leave them at home. Please take a shower or bath the night before, or the morning of, surgery with an antibacterial soap. Wear comfortable, loose fitting clothing. HIBICLENS SHOWER - Jewelry must be removed prior to entering the operating room. Rings and piercings that are not removed may be cut off. - The hospital will not accept responsibility for valuables. - Please leave all valuables, including medications, at home the day of surgery. If you are going home after surgery, a licensed tier truck driver must drive you home. - NO public transportation without another adult. - We recommend that an adult stay with you for 24 hours following discharge. - We also recommend that you do not drive, make important decision, drink alcoholic beverages, or take any drugs that were not prescribed by your health care provider for at least 24 hours after your discharge time. Follow any additional instructions given to you from your surgeon. If you or anyone in your household have experienced Covid symptoms in the past week, please notify your surgeon or the nurse liaison at the phone number below for possible testing. Telephone instructions given to PT - MEGAN LEYVA and asked if any additional questions and then verbalized understanding. Patient advised to call surgeon office or pre surgery nurse liaison [phone] if any additional questions.
--- NOTE | 2021-07-24 15:19 | P.PNAN_ITS ---
Anes - Initial Pre Proc Eval Procedure: Operation Date: 07/25/21 12:00 Proposed Procedures p Laparoscopic Left Inguinal Hernia Repair with Mesh, Possible Bilateral Inguinal Hernia Repair, Davinci Assisted - Lola Hardin MD Date/Time: 07/24/21 15:19 Surgeon: Lola Hardin MD Pre Op Diagnosis: Lt Ing Hernia Patient Data Age: 50 Gender: M Height: 1.78 m Weight: 94.8 kg Allergies Allergy/AdvReac Type Severity Reaction Status Date / Time Penicillins Allergy Severe Anaphylaxis Verified 07/25/21 10:18 Home Medications Medication Instructions Recorded Confirmed Type azelastine 137 mcg (0.1 %) nasal 1 spray intranasal Q12H #30 mL 04/12/21 07/25/21 Rx spray aerosol sumatriptan succinate 25 mg tablet 25 mg PO ONCE #30 tabs 04/12/21 07/25/21 Rx (Imitrex) naproxen 500 mg tablet 500 mg PO BID PRN Pain 07/25/21 07/25/21 History topiramate 50 mg tablet 50 mg PO BID 07/25/21 07/25/21 History Patient hx anesthesia problems: none Family hx anesthesia problems: none Results Review: All pre-operative results and documents have been reviewed as part of the pre- operative evaluation. [facility] Past Medical History Medical History Degenerative joint disease Diverticulitis large intestine Erosive gastritis Gastroesophageal reflux disease Lumbar disc disease Migraine Obstructive sleep apnea treated with BiPAP (11/2019) Post-polypectomy bleeding Surgical History Surgical History History of arthroscopy of right knee (03/2019) History of colonoscopy with polypectomy (10/10/20) Family History Family History Father Lung cancer Mother , Old age per Rehan Hypertension Atrial fibrillation Social History Social History Social History: Surrogate decision maker: Ashwini Arteaga, significant other. Code status: Full code. Smoking packs per day: 1.5 Smoking cigarettes per day: 30.0 Years smoked: 12 Smoking pack-years: 18.00 Smoking status: Former smoker Tobacco type: cigarettes Second hand tobacco smoke exposure: Yes Smoking end date: 02/10/00 Alcohol intake: current Drinks per week: 7 Substance use: current Substance use type: marijuana Last use: 10/08/20 Living arrangements: with family Additional occupation/education comments: Works for [employer]. Spiritual care concerns: No Anes - Eval Final PreProcedure Day of Procedure 07/24/21 15:19 Patient weight: obese Heart: regular rate and rhythm Lungs: clear to auscultation Airway: Mallampati scale class II Neurological: alert and oriented Last oral intake: >/= 8 hours ASA classification: III Emergent: no Anesthetic plan: proceed Anesthesia type and monitoring: general ETT and standard monitoring Results Review: All pre-operative results and documents have been reviewed as part of the pre- operative evaluation. Informed Consent: The patient's anesthetic plan and its attendant risks and benefits were discus sed with the patient/family/POA. Questions were solicited and answers provided to the satisfaction of the patient/family/POA.
[2021-07-25] VITALS (9 sets, daily range): BP systolic 118–166; BP diastolic 67–87; PULSE 45–78; RESP 10–18; TEMP 36.2–36.4; O2SAT 97–100
[2021-07-25] MEDS: LACTATED RINGERS 1,000 ML 30 ML IV CONT ×2 (10:40→14:23)
[2021-07-25] MEDS: ACETAMINOPHEN 500 MG TABLET 1000 MG PO (10:43)
[2021-07-25] MEDS: KETOROLAC 15 MG/ML VIAL (*BKC) IV PUSH (10:43)
--- NOTE | 2021-07-25 12:15 | WPDHPUPDATE1 ---
History and Physical Update Update Date/Time: 07/25/21 12:15 History and Physical has been reviewed, including an updated exam of the patient. There are NO changes in the patient's condition. Risks, benefits, and alternatives have been discussed and questions answered. Patient agrees to proceed with procedure.
[2021-07-25] MEDS: ceFAZolin 2 GM/D5W 50 ML 2 GM/50 ML BAG IVPB (12:21)
--- NOTE | 2021-07-25 14:07 | W.PM.PROC2 ---
Procedure Note - Detailed Date of Procedure 07/25/21 Pre-op Diagnosis left inguinal hernia Post-op Diagnosis Same Procedure Performed robotic assisted left inguinal hernia repair with mesh Surgeon Lola Hardin MD Anesthesia General Indications 50 y/o M c LIH and worsening groin pain over last few months Findings pantaloon left inguinal hernia Description of Procedure Patient was brought into the operating room and placed in the supine position. After adequate induction of general anesthesia, the patient was prepped and draped in normal sterile fashion. A time-out was then done to verify the patient's identity, as well as the procedure being performed. I began by making a 8 mm incision in the supraumbilical region, a Veress needle was then placed into the peritoneal cavity. CO2 gas was then insufflated and after adequate pneumoperitoneum was achieved, the Veress needle was removed. I then placed an 8 mm trocar through this incision. I then placed the endoscope through this trocar site and under direct visualization placed 2 further 8 mm ports in the right and left mid abdomen. The [employer] robot was then docked to the 3 trocar sites. I then scrubbed out and went to the robotic console. Upon examining the pelvis, it was noted that the patient had a large direct left inguinal hernia. The right side was examined and no hernia defect was noted. I began by making a preperitoneal flap approximately 6 cm superior to the defect. This flap was carried medially past the umbilical ligaments and laterally to the transversalis. It then began dissection of my medial compartment taking this down to the pubic tubercle. The large direct defect was encountered at this point. Using careful dissection, I was able to reduce the direct hernia sac. I then began the lateral dissection taking this down to the transversalis fascia. Once these compartments were achieved, I began dissection around the cord structures. A small indirect hernia was noted at this point. Using careful dissection, was able to reduce indirect hernia sac off the cord structures. Once this was adequately done, I went ahead and placed a large piece of 3D Max mesh into the abdominal cavity. The mesh was carefully positioned, centering the center of the mesh over the direct defect. Once this was done, was very satisfied with our repair. Using 3-0 Vicryl sutures, I tacked the mesh medially to León's ligament. Two lateral sutures were placed from the mesh to the transversalis fascia. I then closed the peritoneal flap with a running 2.0 V Lock suture. The abdomen was then desufflated, and all ports were removed. All incisions were then closed with the 4.0 monocryl suture. Dermabond was placed on each wound. The patient tolerated the procedure well, was extubated in the operating room postoperatively, and will now be transferred to the recovery room in stable condition. Implants large 3DMax mesh Estimated Blood Loss 5 Drains No Packing No Pathology None sent Complications No immediate complications Condition Stable Disposition PACU [facility] Billing Surgery - Charge Forward: Surgery Billing
--- NOTE | 2021-07-25 14:36 | SUR.PHASEI ---
Oral airway removed at 2054
[2021-07-25] MEDS: fentaNYL CITRATE INJ (*CRX) 100 MCG/2 ML VIAL 25 MCG IV PUSH ×2 (14:52→15:09)
[2021-07-25] MEDS: oxyCODONE HCL (*CRX) 5 MG TAB IR PO (15:37)
== END 2021-07-25 16:14 | disposition home or self-care (01) ==
PROVIDERS: PCP Emergency Medicine; Visit Provider Surgery
PROC: 8E0Y4CZ Robotic Assisted Procedure of Lower Extremity, Percutaneous Endoscopic Approach (ICD-10-PCS; CPT 49650; principal; 2021-07-25 12:00)
DX: K40.90 Unilateral inguinal hernia, without obstruction or gangrene, not specified as recurrent (principal); M47.816 Spondylosis without myelopathy or radiculopathy, lumbar region; K21.00 Gastro-esophageal reflux disease with esophagitis, without bleeding; G47.33 Obstructive sleep apnea (adult) (pediatric); M19.90 Unspecified osteoarthritis, unspecified site; F17.290 Nicotine dependence, other tobacco product, uncomplicated; F12.90 Cannabis use, unspecified, uncomplicated; Z87.19 Personal history of other diseases of the digestive system
CPT/HCPCS: 49650; S2900; A9270; C1781; J0690; J1100; J1170; J1885; J2250; J2405; J2704; J2710; J3010; J7030; J7120

== ENCOUNTER 2021-08-16 10:36 | Outpatient (CLI) | payer BC, MEDICAID, SELFPAY ==
--- NOTE | ~2021-08-16 | CT_ITS ---
EXAMINATION: CT pelvis wo con DATE: 08/16/2021 11:00 INDICATION: Acute left groin pain TECHNIQUE: Computed tomography (CT) of the pelvis was performed without intravenous contrast. Automat ed exposure control and iterative reconstruction technique were employed. Exam dose: 431.48 mGy-cm t otal exam DLP. COMPARISON: 07/09/2021 CT abdomen pelvis FINDINGS: There are bilateral inguinal hernias. The right inguinal hernia contains fat. There is a larger left inguinal hernia, with interval soft tissue infiltration and fascial thickenin g , suggesting herniated fat necrosis due to strangulation. Normal appendix. There are multiple diverticula of the sigmoid colon; no evidence of diverticulitis. No pelvic mass lesion or lymphadenopathy. No ascites. Small fat containing umbilical hernia. IMPRESSION: Bilateral inguinal hernias, larger on the left, with soft tissue infiltration and fascia l thickening, suggesting strangulated fat necrosis Reviewed, dictated and finalized at Location [facility]. Reviewed, dictated and finalized at location A. IMPRESSION: Bilateral inguinal hernias, larger on the left, with soft tissue i nfiltration and fascial thickening, suggesting strangulated fat necrosis
== END 2021-08-16 10:37 | disposition home or self-care (01) ==
PROVIDERS: PCP Emergency Medicine; Visit Provider Surgery
DX: R10.32 Left lower quadrant pain (principal); K40.20 Bilateral inguinal hernia, without obstruction or gangrene, not specified as recurrent
CPT/HCPCS: 72192

== ENCOUNTER 2021-11-21 10:39 | Emergency (ER) | payer BC, MEDICAID, SELFPAY ==
[2021-11-21 10:54] VITALS: BP 143/83; PULSE 59; RESP 18; TEMP 36.6; O2SAT 99
--- NOTE | 2021-11-21 11:28 | ED.GENADULT ---
HPI - General Adult General Chief complaint: Headache Stated complaint: migraine Time Seen by Provider: 11/21/21 10:56 History of Present Illness HPI narrative: 51-year-old male with history of migraines presenting the emergency department for evaluation of a migraine that started approximately 3:00 in the morning. Patient states the headache did wake him from sleep. Patient states the headache is similar in nature to his prior migraines. Patient states the migraine is more intense than usual. Patient does take topiramate nightly and does take sumatriptan hand as needed. Patient did take his topiramate last night and did take sumatriptan twice since onset of the migraine. Patient reports he does have some associated nausea and light sensitivity. Patient denies any falls or injuries. Patient denies any associated numbness or weakness. Related Data Allergies Allergy/AdvReac Type Severity Reaction Status Date / Time Penicillins Allergy Severe Anaphylaxis Verified 11/21/21 11:05 Review of Systems Review of Systems: CONSTITUTIONAL: Denies fever, chills, or sweats. EYES: Denies visual changes, redness, or discharge. ENT: Denies rhinorrhea, congestion, sore throat, or otalgia. CARDIOVASCULAR: Denies chest pain, palpitations, or edema. RESPIRATORY: Denies cough or dyspnea. GASTROINTESTINAL: Denies abdominal pain, nausea, vomiting, or diarrhea. GENITOURINARY: Denies dysuria or hematuria. SKIN: Denies rash or itching. MUSCULOSKELETAL: Denies back pain, joint pain, or myalgia. NEUROLOGIC: See HPI PSYCHIATRIC: Denies anxiety or depression. [facility] Past Medical History Medical History (Updated 11/21/21 @ 12:51 by Cesar Tidwell MD) Degenerative joint disease Diverticulitis large intestine Erosive gastritis Gastroesophageal reflux disease Lumbar disc disease Migraine Obstructive sleep apnea treated with BiPAP (11/2019) Post-polypectomy bleeding Surgical History Surgical History (Updated 08/07/21 @ 10:13 by Aliyah Archer) H/O inguinal hernia repair robotic assisted left inguinal hernia repair with mesh 07/25/2021 History of arthroscopy of right knee (03/2019) History of colonoscopy with polypectomy (10/10/20) Family History Family History Father Lung cancer Mother , Old age per Rehan Hypertension Atrial fibrillation Social History Social History Social History: Surrogate decision maker: Ashwini Arteaga, significant other. Code status: Full code. Smoking packs per day: 1.5 Smoking cigarettes per day: 30.0 Years smoked: 12 Smoking pack-years: 18.00 Smoking status: Former smoker Tobacco type: cigarettes Second hand tobacco smoke exposure: Yes Smoking end date: 02/10/00 Alcohol intake: current Drinks per week: 7 Substance use: current Substance use type: marijuana Last use: 10/08/20 Additional occupation/education comments: Works for [employer]. Spiritual care concerns: No Exam Narrative: APPEARANCE: Well appearing, no pain, no distress, well-nourished. HEAD: normocephalic, atraumatic. EYES: PERRLA/EOMI, conjunctivae clear. NOSE: Normal no drainage NECK: Supple. No adenopathy, no masses. RESPIRATORY: Airway patent, respirations nonlabored. Clear to auscultation bilaterally, no rales, rhonchi, wheezing. CARDIOVASCULAR: Regular rate and rhythm without murmurs rubs or gallops. ABDOMINAL: Soft, nontender, nondistended, normal bowel sounds MUSCULOSKELETAL: Moves all extremities. Strength/ROM intact, No edema, No calf tenderness. NEURO: Alert. Cranial nerves II through XII intact. Grossly intact. Normal Romberg. Normal forward and backward tandem gait. No drift or ataxia. SKIN: Warm, dry. Normal Color Course Course Emergency Course: Patient headache was treated with saline, Toradol, Compazine and Benadryl. States his headache is resolved. Patient is requesting disch
[2021-11-21] MEDS: PROCHLORPERAZINE EDISYLATE 10 MG/2 ML VIAL IV PUSH (11:45)
[2021-11-21] MEDS: SODIUM CHLORIDE 0.9% IV 1,000 ML 999 ML IV CONT (11:45)
[2021-11-21] MEDS: diphenhydrAMINE HCl INJ 50 MG/ML VIAL IV PUSH (11:46)
[2021-11-21] MEDS: KETOROLAC 30 MG/ML VIAL (*BKC) IV PUSH (11:46)
== END 2021-11-21 13:01 | disposition home or self-care (01) ==
PROVIDERS: Emergency Provider Emergency Medicine; PCP Emergency Medicine
DX: G43.909 Migraine, unspecified, not intractable, without status migrainosus (principal); Z87.891 Personal history of nicotine dependence; F12.90 Cannabis use, unspecified, uncomplicated; K21.9 Gastro-esophageal reflux disease without esophagitis; G47.33 Obstructive sleep apnea (adult) (pediatric)
CPT/HCPCS: 96361; 96374; 96375; 99284; J0780; J1200; J1885; J7030

== ENCOUNTER 2022-02-04 15:59 | Emergency (ER) | payer BC, MEDICAID, SELFPAY ==
[2022-02-04] VITALS (14 sets, daily range): BP systolic 137–152; BP diastolic 78–99; PULSE 44–75; RESP 11–19; TEMP 36.3–36.8; O2SAT 99–100
--- NOTE | ~2022-02-04 | CT_ITS ---
EXAMINATION: CT abdomen pelvis w con DATE: 02/04/2022 19:29 INDICATION: Left lower quadrant pain TECHNIQUE: Computed tomography (CT) of the abdomen and pelvis was performed with 100 mL Omnipaque-350 intravenous contrast. Automated exposure control and iterative reconstruction technique were employe d. The dose-length product was 794.66 mGy-cm. COMPARISON: CT pelvis 08/16/[address] abdomen and pelvis 07/09/2021. FINDINGS: Lower thorax: Dependent atelectasis Liver: Multiple hypodensities, too small to characterize but most likely represent cysts Biliary/Gallbladder: Gallbladder is normal. No bile duct dilation. Pancreas: No mass or duct dilation. Spleen: Normal. Adrenals:No mass. Kidneys: Simple right lower pole cyst. Multiple bilateral hypodensities, too small to characterize bu t most likely represent cysts. No suspicious mass. No obstructive calcification. No hydronephrosis. GI tract: Distal esophageal and gastric wall edema No small or large bowel dilation. Normal appendix. Diverticulosis without diverticulitis. Mesentery/Peritoneum: No ascites, mass, or free air. Retroperitoneum: No mass. Pelvis: Pelvic organs are within normal limits. Soft Tissues: Soft tissues and body wall unremarkable. Interval left hernia repair. Bones: No acute osseous finding. IMPRESSION: Esophagitis/gastritis, otherwise no acute abdominopelvic process detected. Reviewed, dictated and finalized at location K. 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
[2022-02-04 18:24] LABS: Add Urine Microscopic? NO; Appearance Urine Clear (Clear); Basophils Percent Auto 0.5 % (0.2-1.2); Bilirubin Urine Negative (Negative); Blood Urine Negative (Negative); Color Urine Light Yellow (Yellow); Eosinophils Absolute Auto 0.1 K/mm3 (0-0.3); Eosinophils Percent Auto 1.4 % (0-4.4); Glucose Urine UA Negative (Negative); Hematocrit 43.7 % (42.0-52.0); Hemoglobin 14.4 g/dL (14.0-18.0); Immature Granulocyte Absolute 0.02 K/mm3 (0.00-0.031); Immature Granulocyte Percent A 0.3 % (0-0.5); Ketones Urine Negative (Negative); Leukocyte Esterase Ur Negative LEU/UL (Negative); Lymphocytes Absolute Auto 2.31 K/mm3 (0.9-3.2); Lymphocytes Percent Auto 35.4 % (18.3-44.2); Mean Corpuscular Hemoglobin 27.9 pg (26-34); Mean Corpuscular Volume 84.5 fl (80-100); Mean Platelet Volume 8.9 fl (7.4-10.4); Monocytes Absolute Auto 0.8 K/mm3 (0.1-0.6); Monocytes Percent Auto 11.6 % (2.6-8.5); Neutrophils Absolute Auto 3.3 K/mm3 (1.3-6.7); Neutrophils Percent Auto 50.8 % (45.5-73.1); Nitrate Urine Negative (Negative); Platelet Count Result 237 k/mm3 (150-375); Protein Urine Negative (Negative); Red Blood Count 5.17 M/mm3 (4.6-6.20); Red Cell Distribution Width 14.7 % (11.5-14.5); Urobilinogen Urine 0.2 mg/dL (<2.0); White Blood Count 6.5 K/mm3 (4.5-10.0)
--- NOTE | 2022-02-04 18:25 | ED.ABDPAIN ---
HPI - Abdominal Pain General Chief Complaint: Abdominal Pain Stated Complaint: abdominal pain Time Seen by Provider: 02/04/22 18:08 Source: patient Mode of arrival: ambulatory Limitations: no limitations History of Present Illness HPI narrative: This is a 51-year-old male that presents to the emergency department for left lower quadrant pain ongoing today. Reports the pain is sharp and intermittent. It is worse with certain movements. He did have a left inguinal hernia repair about [address] Hardin. 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 No certain injury that he can think of. Denies fever, vomiting, diarrhea, testicular pain or swelling, dysuria, or hematuria. Related Data Allergies Allergy/AdvReac Type Severity Reaction Status Date / Time Penicillins Allergy Severe Anaphylaxis Verified 11/21/21 11:05 Review of Systems Review of Systems: CONSTITUTIONAL: Denies fever GASTROINTESTINAL: Reports abdominal pain. Denies nausea, vomiting, or diarrhea. GENITOURINARY: Denies dysuria or hematuria. All systems reviewed & are unremarkable except as noted in HPI and below PMFSH Past Medical History Medical History (Updated 02/04/22 @ 20:32 by [place] PA-C) Degenerative joint disease Diverticulitis large intestine Erosive gastritis Gastroesophageal reflux disease Lumbar disc disease Migraine Obstructive sleep apnea treated with BiPAP (11/2019) Post-polypectomy bleeding Surgical History Surgical History (Updated 08/07/21 @ 10:13 by Aliyah Archer) H/O inguinal hernia repair robotic assisted left inguinal hernia repair with mesh 07/25/2021 History of arthroscopy of right knee (03/2019) History of colonoscopy with polypectomy (10/10/20) Family History Family History Father Lung cancer Mother , Old age per Rehan Hypertension Atrial fibrillation Social History Social History Social History: Surrogate decision maker: Ashwini Arteaga, significant other. Code status: Full code. Smoking packs per day: 1.5 Smoking cigarettes per day: 30.0 Years smoked: 12 Smoking pack-years: 18.00 Smoking status: Former smoker Tobacco type: cigarettes Second hand tobacco smoke exposure: Yes Smoking end date: 02/10/00 Alcohol intake: current Drinks per week: 7 Substance use: current Substance use type: marijuana Last use: 10/08/20 Additional occupation/education comments: Works for [employer]. Spiritual care concerns: No Exam Narrative: GENERAL: Well-appearing, well-nourished, and in no acute distress. HEAD: Normocephalic, atraumatic. EYES: EOMI. CHEST: Clear to auscultation. No respiratory distress. No wheezes rales or rhonchi HEART: Regular rate and rhythm. No murmur heard. Normal peripheral pulses. ABDOMEN: Soft, nondistended, normal active bowel sounds. Tender to palpation in the left lower quadrant/groin without guarding. No obvious hernia on exam. No CVA tenderness EXTREMITIES: Normal range of motion. No edema. SKIN: Warm, dry, no rash. NEURO: No focal deficits. Alert and oriented x3. PSYCH: Normal mood and affect Course Consultations Consultation #1: Patient is currently resting comfortably. Updated on work-up. Date: 02/04/22 Vital Signs Vital signs: Vital Signs Temperature 97.3 F L 02/04/22 16:04 Pulse Rate 75 02/04/22 16:04 Respiratory Rate 16 02/04/22 16:04 Blood Pressure 152/99 H 02/04/22 16:04 Pulse Oximetry 100 02/04/22 16:04 Oxygen Delivery Room Air 02/04/22 16:04 Temperature 97.3 F L 02/04/22 16:04 Pulse Rate 51 L 02/04/22 19:34 Respiratory Rate 17 02/04/22 19:34 Blood Pressure 139/92 H 02/04/22 19:11 Pulse Oximetry 100 02/04/22 19:34 Oxygen Delivery Room Air 02/04/22 16:04 MDM - Abdominal Pain MDM Narrative Medical decision making narrative: Patient presents emergency de
[2022-02-04 18:27] LABS: RBC Urine 0-2 /hpf (0-2); WBC Urine 0-3 /hpf
[2022-02-04 18:33] LABS: Alanine Aminotransferase 62 U/L (6-50); Albumin Level 4.7 g/dL (3.5-5.1); Alkaline Phosphatase 83 U/L (38-126); Anion Gap 3 mmol/L (8-16); Aspartate Amino Transferase 46 U/L (17-59); Bilirubin,Total 0.5 mg/dL (0.2-1.3); Blood Urea Nitrogen 13 mg/dL (9-20); Carbon Dioxide 28 mmol/L (22-30); Chloride 108 mmol/L (98-107); Estimated CRCL calculation 59 ml/min; Estimated Glomerular Filt Rate > 60; Glucose 88 mg/dL (65-110); Lipase 102 U/L (23-300); Potassium 4.1 mmol/L (3.4-5.0); Sodium 139 mmol/L (137-145)
[2022-02-04] MEDS: SODIUM CHLORIDE 0.9% IV 1,000 ML 999 ML IV CONT (19:06)
--- NOTE | 2022-02-04 19:13 | PC.NURSE ---
Patient report given to RAJESH Gu. All questions answered and care of patient transferred,
== END 2022-02-04 20:42 | disposition home or self-care (01) ==
PROVIDERS: Emergency Provider Physician Assistant; PCP Emergency Medicine
DX: R10.32 Left lower quadrant pain (principal); Z87.891 Personal history of nicotine dependence; K21.9 Gastro-esophageal reflux disease without esophagitis; G47.30 Sleep apnea, unspecified
CPT/HCPCS: 36415; 74177; 80053; 81003; 83690; 85025; 96361; 96365; 99284; J0131; J7030; Q9967

== ENCOUNTER 2022-05-01 06:44 | Emergency (ER) | payer BC, MEDICAID, SELFPAY ==
[2022-05-01] VITALS (16 sets, daily range): BP systolic 143–166; BP diastolic 83–95; PULSE 44–56; RESP 16–19; TEMP 36.6; O2SAT 96–99
--- NOTE | ~2022-05-01 | XR_ITS ---
Portable chest x-ray Comparison: None Clinical History: Shortness of breath Findings: Lungs are clear, without focal consolidation or pleural effusion. Cardiomediastinal silho uette is unremarkable. Bones and soft tissues are unremarkable. Impression: Normal chest. Reviewed, dictated and finalized at location . Impression: Normal chest.
--- NOTE | 2022-05-01 06:50 | ECG_ITS ---
Measurements Intervals [place] Rate: 48 P: 55 NE: 166 QRS: 44 QRSD: 126 T: 37 QT: 450 QTc: 403 Interpretive Statements SINUS BRADYCARDIA INTRAVENTRICULAR CONDUCTION DELAY BASELINE ARTIFACT- I, II, AVR, AVL ABNORMAL ECG COMPARED TO ECG 02/18/2019 09:29:51 SINUS BRADYCARDIA NOW PRESENT INTRAVENTRICULAR CONDUCTION DELAY NOW PRESENT Electronically Signed On 05-01-2022 8:03:40 CDT by Wilver Gillette D.O.
--- NOTE | 2022-05-01 07:04 | ED.SOB ---
HPI - SOB/Dyspnea General Chief Complaint: Shortness of Breath/Dyspnea Stated Complaint: weakness and shortness of breath, bradycardia Time Seen by Provider: 05/01/22 06:58 History of Present Illness HPI Narrative: Patient is a 51-year-old male with a history of KENNETH, GERD, hyperlipidemia presenting with dyspnea. Patient states over the last couple of days he has been very fatigued and has noticed some exertional dyspnea. 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 States that he was so tired yesterday that he took a nap while at work. States that he has a Holter monitor on right now due to low heart rate. States that it is supposed to come off tomorrow. He denies fevers or chills, numbness or weakness, chest pain, cough, palpitations, lightheadedness, abdominal pain, nausea or vomiting, diarrhea, dysuria, leg swelling. Related Data Home Medications Medication Instructions Recorded Confirmed loratadine 10 mg tablet 10 mg PO DAILY 05/01/22 05/09/22 Allergies Allergy/AdvReac Type Severity Reaction Status Date / Time Penicillins Allergy Severe Anaphylaxis Verified 05/09/22 10:49 Review of Systems Review of Systems: All systems reviewed & are unremarkable except as noted in HPI and below PMFSH Past Medical History Medical History Sumaya esophagitis Degenerative joint disease Diverticulitis large intestine Erosive gastritis Gastroesophageal reflux disease GERD with esophagitis Hx of adenomatous colonic polyps Lumbar disc disease Migraine Obstructive sleep apnea treated with BiPAP (11/2019) Overweight (BMI 25.0-29.9) Post-polypectomy bleeding Surgical History Surgical History H/O inguinal hernia repair robotic assisted left inguinal hernia repair with mesh 07/25/2021 History of arthroscopy of right knee (03/2019) History of colonoscopy with polypectomy (10/10/20) Family History Family History Father Lung cancer Mother , Old age per Rehan Hypertension Atrial fibrillation Social History Social History Social History: Surrogate decision maker: Ashwini Arteaga, significant other. Code status: Full code. Smoking packs per day: 1.5 Smoking cigarettes per day: 30.0 Years smoked: 12 Smoking pack-years: 18.00 Smoking status: Former smoker Tobacco type: cigarettes Second hand tobacco smoke exposure: Yes Smoking end date: 02/10/00 Alcohol intake: current Drinks per week: 7 Substance use: current Substance use type: marijuana Last use: 10/08/20 Lack of Transportation: No Living arrangements: with family Occupation/Education: occupation Additional occupation/education comments: Works for [employer]. Spiritual care concerns: No Exam Narrative: GENERAL: Well-appearing, well-nourished, and in no acute distress. HEAD: Normocephalic, atraumatic. EYES: PERRLA and EOMI. ENT: Nares clear, no rhinorrhea or epistaxis. Mucous membranes moist. NECK: Supple. CHEST: Clear to auscultation. No respiratory distress. HEART: Bradycardic, regular rhythm. ABDOMEN: Soft, nontender, nondistended EXTREMITIES: Normal range of motion. No edema. SKIN: Warm, dry, no rash. NEURO: No focal deficits. Alert and oriented x3. PSYCH: Normal mood and affect. Course Vital Signs Vital signs: Vital Signs Temperature 97.8 F 05/01/22 06:50 Pulse Rate 56 L 05/01/22 06:50 Respiratory Rate 19 05/01/22 06:50 Blood Pressure 151/91 H 05/01/22 06:50 Pulse Oximetry 98 05/01/22 06:50 Oxygen Delivery Room Air 05/01/22 06:50 Temperature 97.8 F 05/01/22 06:50 Pulse Rate 45 L 05/01/22 11:31 Respiratory Rate 18 05/01/22 11:31 Blood Pressure 155/95 H 05/01/22 11:31 Pulse Oximetry 99 05/01/22 11:31 Oxygen D
[2022-05-01 07:13] LABS: Basophils Percent Auto 0.4 % (0.2-1.2); Eosinophils Absolute Auto 0.1 K/mm3 (0-0.3); Eosinophils Percent Auto 2.7 % (0-4.4); Hematocrit 43.8 % (42.0-52.0); Hemoglobin 14.8 g/dL (14.0-18.0); Immature Granulocyte Absolute 0.01 K/mm3 (0.00-0.031); Immature Granulocyte Percent A 0.2 % (0-0.5); Lymphocytes Percent Auto 46.6 % (18.3-44.2); Mean Corpuscular HGB Conc 33.8 g/dl (32-36); Mean Corpuscular Hemoglobin 28.3 pg (26-34); Mean Corpuscular Volume 83.7 fl (80-100); Mean Platelet Volume 8.7 fl (7.4-10.4); Monocytes Absolute Auto 0.6 K/mm3 (0.1-0.6); Monocytes Percent Auto 11.7 % (2.6-8.5); Neutrophils Percent Auto 38.4 % (45.5-73.1); Platelet Count Result 268 k/mm3 (150-375); Red Blood Count 5.23 M/mm3 (4.6-6.20); Red Cell Distribution Width 14.6 % (11.5-14.5); White Blood Count 5.2 K/mm3 (4.5-10.0)
[2022-05-01 07:26] LABS: Alanine Aminotransferase 34 U/L (6-50); Albumin Level 4.5 g/dL (3.5-5.1); Alkaline Phosphatase 67 U/L (38-126); Anion Gap 4 mmol/L (8-16); Aspartate Amino Transferase 36 U/L (17-59); Bilirubin,Total 0.6 mg/dL (0.2-1.3); Blood Urea Nitrogen 13 mg/dL (9-20); Calcium 9.1 mg/dL (8.4-10.2); Carbon Dioxide 26 mmol/L (22-30); Chloride 109 mmol/L (98-107); Estimated CRCL calculation 59 ml/min; Estimated Glomerular Filt Rate > 60; Glucose 104 mg/dL (65-110); Potassium 4.2 mmol/L (3.4-5.0); Sodium 139 mmol/L (137-145)
[2022-05-01] MEDS: SODIUM CHLORIDE 0.9% IV 1,000 ML 999 ML IV CONT (07:40)
[2022-05-01 08:36] LABS: NT Pro B Type Natriuretic Pept < 20 pg/mL (19.9-100); Troponin I < 0.012 ng/mL (0.000-0.034)
[2022-05-01] MEDS: ASPIRIN 81 MG CHEWABLE TABLET 324 MG PO (08:40)
[2022-05-01 08:48] LABS: Influenza A QL RT-PCR Negative (Negative); Influenza B QL RT-PCR Negative (Negative); SARS-CoV-2 RNA PCR Negative
[2022-05-01 08:55] LABS: Thyroid Stimulating Hormone Reflex 0.766 uIU/mL (0.465-4.68)
[2022-05-01 11:27] LABS: Troponin I < 0.012 ng/mL (0.000-0.034)
== END 2022-05-01 11:55 | disposition home or self-care (01) ==
PROVIDERS: Preventive Medicine Aerospace Medicine; Emergency Provider Emergency Medicine; PCP Emergency Medicine
DX: R00.1 Bradycardia, unspecified (principal); R53.83 Other fatigue; G47.33 Obstructive sleep apnea (adult) (pediatric); E78.5 Hyperlipidemia, unspecified; K21.9 Gastro-esophageal reflux disease without esophagitis; Z87.891 Personal history of nicotine dependence; F12.90 Cannabis use, unspecified, uncomplicated
CPT/HCPCS: 36415; 71045; 80053; 83880; 84443; 84484; 85025; 87636; 93005; 96361; 96374; 99284; A9270; J0131; J7030

== ENCOUNTER 2022-06-05 08:08 | Outpatient (CLI) | payer BC, MEDICAID, SELFPAY ==
--- NOTE | ~2022-06-05 | NM_ITS ---
EXAMINATION: NM natacha stress w perfusion DATE: 06/05/2022 10:20 INDICATION: Chest pain TECHNIQUE: Rest images were obtained following intravenous administration of 10.5 mCi Tc99m tetrofosm in (Myoview). The patient was infused intravenously with Lexiscan (Regadenoson). Then, 33.6 mCi Tc99m tetrofosmin (Myoview) was administered intravenously, and stress images were obtained. Data was daysi nstructed into short axis and horizontal and vertical long axis SPECT images. Gated SPECT images were also obtained. COMPARISON: None. FINDINGS: There is no definite reversible or fixed perfusion abnormality to suggest ischemia or infar ction. There is normal left ventricular chamber size, wall motion and ejection fraction. Left ventr icular ejection fraction measures 59%. IMPRESSION: 1. Normal myocardial perfusion at rest and during stress. 2. Left ventricular ejection fraction measuring 59%. Reviewed, dictated and finalized at location A.
--- NOTE | 2022-06-05 08:21 | ECHO_ITS ---
Patient Info Name: Rehan Reilly Age: 51 years : 1970 Gender: Male Ht: 70 in Wt: 200 lbs BSA: 2.14 m2 HR: 49 bpm BP: 166 / 94 mmHg Heart Rhythm: Bradycardia Technical Quality: Good Exam Date: 06/05/2022 10:25 AM Exam Location: [facility] Patient Status: Outpatient Admit Date: 06/05/2022 Staff Ordering Physician: Wilver Gillette DO Finishing Lab Technician: Nena Santo RDCS Attending Provider: Wilver Gillette DO Exam Type: CA echo doppler color flow Study Info Indications R06.09 - Other forms of dyspnea Complete two-dimensional, color flow and Doppler transthoracic echocardiogram is performed. Summary 1. Complete two-dimensional, color flow and Doppler transthoracic echocardiogram is performed. 2. Left ventricular chamber dimension is normal. 3. Left ventricular systolic function is normal, estimated at 60-65%. 4. The left ventricular diastolic function is grade II diastolic dysfunction. 5. E/e' 7 is not elevated. 6. Left atrial chamber dimension is moderately enlarged. 7. Right atrial chamber dimension is moderately enlarged. 8. There is mild mitral valve regurgitation. 9. No pulmonary hypertension, estimated pulmonary arterial systolic pressure is 26 mmHg. 10. There is trace pulmonic regurgitation. Left Ventricle E/e' 7 is not elevated. Left ventricular chamber dimension is normal. Left ventricular systolic function is normal, estimated at 60-65%. The left ventricular diastolic function is grade II diastolic dysfunction. Right Ventricle Right ventricular systolic function is normal and with normal TAPSE 1.7 cm. Right ventricular chamber dimension is normal. Left Atria Left atrial chamber dimension is moderately enlarged. Right Atria Right atrial chamber dimension is moderately enlarged. Aortic Valve The aortic valve is trileaflet. There is no aortic valve stenosis. There is no aortic valve regurgitation. Pulmonic Valve There is trace pulmonic regurgitation. Mitral Valve There is no mitral valve stenosis. There is mild mitral valve regurgitation. Tricuspid Valve There is no tricuspid valve regurgitation. No pulmonary hypertension, estimated pulmonary arterial systolic pressure is 26 mmHg. Pericardium/Pleural There is no pericardial effusion. Inferior Vena Cava Normal inferior vena cava with >50% collapse upon inspiration consistent with normal right atrial pressure, 5 mmHg. Aorta The aortic root size at the sinus of Valsalva is normal. Left Ventricular Outflow Tract Name Value Normal LVOT 2D LVOT Diameter 2.1 cm LVOT Doppler LVOT Peak Gradient 2 mmHg LVOT Mean Gradient 1 mmHg LVOT VTI 18 cm LVOT VTI/AV VTI Ratio 0.6 LVOT Stroke Volume 64 ml LVOT CO 2.7 l/min LVOT CI 1.3 l/min/m2 Pulmonic Valve Name Value Normal RVOT Doppler
--- NOTE | 2022-06-05 08:21 | EST_ITS ---
Patient Info Name: Rehan Reilly Age: 51 years : 1970 Gender: Male Ht: 70 in Wt: 200 lbs BSA: 2.14 m2 HR: 47 bpm BP: 178 / 70 mmHg Heart Rhythm: Sinus Rhythm Exam Date: 06/05/2022 9:09 AM Exam Location: [facility] Patient Status: Outpatient Admit Date: 06/05/2022 Staff Ordering Physician: Wilver Gillette DO Attending Provider: Wilver Gillette DO Exercise Technologist: Danna Schofield CT Exam Type: CA stress natacha w NM Study Info Indications R06.09 - Other forms of dyspnea R07.9 - Chest pain, unspecified A regadenoson stress test was performed. Summary 1. 1. Negative lexiscan stress test for ischemic ST changes by ECG criteria. 2. 2. Baseline hypertension. 3. 3. Nuclear scan to follow and will be reported separately. Please correlate with it. 4. 4. Patient informed of the above results. Protocol: Lexiscan Stress ECG Details Stage: REST Duration (min): 0 min : 57 sec HR (bpm): 48 SBP (mmHg): 153 DBP (mmHg): 77 Stage: REST Duration (min): 9 min : 2 sec HR (bpm): 48 SBP (mmHg): 153 DBP (mmHg): 77 Stage: STAGE 1 Duration (min): 0 min : 59 sec HR (bpm): 76 SBP (mmHg): 178 DBP (mmHg): 70 Stage: RECOVERY Duration (min): 1 min : 0 sec HR (bpm): 83 SBP (mmHg): 178 DBP (mmHg): 70 Stage: RECOVERY Duration (min): 2 min : 0 sec HR (bpm): 83 SBP (mmHg): 178 DBP (mmHg): 70 Stage: RECOVERY Duration (min): 3 min : 0 sec HR (bpm): 79 SBP (mmHg): 127 DBP (mmHg): 67 Stage: RECOVERY Duration (min): 3 min : 15 sec HR (bpm): 81 SBP (mmHg): 127 DBP (mmHg): 67 Rest HR: 48 bpm Peak HR: 85 bpm Rest Sys BP: 153 mmHg Peak Sys BP: 178 mmHg Max Pred HR: 171 bpm % Max Pred HR: 50 % Target HR: 145 bpm Max RPP: 15,130 bpm*mmHg Termination Reason: Completed protocol Cardiac Symptoms: None Total Time: 1 min : 0 sec Rest Persaud BP: 77 mmHg Peak Persaud BP: 70 mmHg Total Dose: 0.4 mg Resting ECG Sinus rhythm. Stress ECG No ST changes. Arrhythmias None. Report Signatures
== END 2022-06-05 08:09 | disposition home or self-care (01) ==
PROVIDERS: PCP Emergency Medicine; Visit Provider Internal Medicine Cardiovascular Disease
DX: R06.09 Other forms of dyspnea (principal); R07.9 Chest pain, unspecified; R93.1 Abnormal findings on diagnostic imaging of heart and coronary circulation
CPT/HCPCS: 78452; 93017; 93306; A9502; J2785

== ENCOUNTER 2022-08-18 06:10 | Emergency (ER) | payer BC, MEDICAID, SELFPAY ==
[2022-08-18 06:13] VITALS: BP 162/79; PULSE 50; RESP 19; TEMP 36.6; O2SAT 100
--- NOTE | 2022-08-18 06:22 | ED.GENADULT ---
HPI - General Adult General Chief complaint: Headache Stated complaint: Migraine Time Seen by Provider: 08/18/22 06:19 History of Present Illness HPI narrative: Patient is a 51-year-old gentleman who presents to the emergency department with chief complaint of migraine headache patient reports that he has prior history of migraines and gets them to the previous to come to the emergency department every few months the patient reports this was started and has been having pain in the frontal area of his head and also in the occipital region the patient states this is his typical location reports that his head is throbbing reports no real nausea reports this is not the worst headache of his life and reports that it is not different than his typical migraine. The patient reports no neurological deficits denies fever Related Data Home Medications Medication Instructions Recorded Confirmed loratadine 10 mg tablet 10 mg PO DAILY 05/01/22 06/13/22 Allergies Allergy/AdvReac Type Severity Reaction Status Date / Time Penicillins Allergy Severe Anaphylaxis Verified 08/18/22 06:15 Review of Systems Review of Systems: A 10 system review of systems was completed on the patient and is negative except for what is stated in the HPI. Nursing and ancillary documentation was reviewed. [facility] Past Medical History Medical History Sumaya esophagitis Degenerative joint disease Diverticulitis large intestine Erosive gastritis Gastroesophageal reflux disease GERD with esophagitis Hx of adenomatous colonic polyps Lumbar disc disease Migraine Obstructive sleep apnea treated with BiPAP (11/2019) Overweight (BMI 25.0-29.9) Post-polypectomy bleeding Surgical History Surgical History H/O inguinal hernia repair robotic assisted left inguinal hernia repair with mesh 07/25/2021 History of arthroscopy of right knee (03/2019) History of colonoscopy with polypectomy (10/10/20) Family History Family History Father Lung cancer Mother , Old age per Rehan Hypertension Atrial fibrillation Social History Social History Social History: Surrogate decision maker: Ashwini Arteaga, significant other. Code status: Full code. Smoking packs per day: 1.5 Smoking cigarettes per day: 30.0 Years smoked: 12 Smoking pack-years: 18.00 Smoking status: Former smoker Tobacco type: cigarettes Second hand tobacco smoke exposure: Yes Smoking end date: 02/10/00 Alcohol intake: current Drinks per week: 7 Substance use: current Substance use type: marijuana Last use: 10/08/20 Lack of Transportation: No Living arrangements: with family Occupation/Education: occupation Additional occupation/education comments: Works for [employer]. Spiritual care concerns: No Exam Narrative: GENERAL: Well-appearing, well-nourished, and in mild acute pain distress. HEAD: Normocephalic, atraumatic. EYES: PERRLA and EOMI. ENT: Nares clear, no rhinorrhea or epistaxis. Mucous membranes moist. NECK: Supple. CHEST: Clear to auscultation. No respiratory distress. HEART: Regular rate and rhythm. No murmur heard. Normal peripheral pulses. ABDOMEN: Soft, nontender, nondistended, normal active bowel sounds. EXTREMITIES: Normal range of motion. No edema. SKIN: Warm, dry, no rash. NEURO: No focal deficits. Alert and oriented x3. PSYCH: Normal mood and affect. Course Vital Signs Vital signs: Vital Signs Temperature 36.6 C 08/18/22 06:13 Pulse Rate 50 L 08/18/22 06:13 Respiratory Rate 19 08/18/22 06:13 Blood Pressure 162/79 H 08/18/22 06:13 Pulse Oximetry 100 08/18/22 06:13 Oxygen Delivery Room Air 08/18/22 06:13 Temperature 36.6 C 08/18/22 06:13 P
[2022-08-18] MEDS: SODIUM CHLORIDE 0.9% IV 1,000 ML 999 ML IV CONT (06:36)
[2022-08-18] MEDS: diphenhydrAMINE HCl INJ 50 MG/ML VIAL IV PUSH (06:37)
[2022-08-18] MEDS: KETOROLAC 30 MG/ML VIAL (*BKC) IV PUSH (06:38)
[2022-08-18] MEDS: PROCHLORPERAZINE EDISYLATE 10 MG/2 ML VIAL IV PUSH (06:38)
[2022-08-18 06:45] VITALS: PULSE 60; O2SAT 100
[2022-08-18 07:50] VITALS: BP 152/86; PULSE 88; RESP 16; O2SAT 97
== END 2022-08-18 07:50 | disposition home or self-care (01) ==
LOC: ANHED 06:36
PROVIDERS: Emergency Provider Emergency Medicine; PCP Emergency Medicine
DX: G43.909 Migraine, unspecified, not intractable, without status migrainosus (principal); K21.00 Gastro-esophageal reflux disease with esophagitis, without bleeding; G47.33 Obstructive sleep apnea (adult) (pediatric); E66.3 Overweight; Z68.28 Body mass index [BMI] 28.0-28.9, adult; Z87.891 Personal history of nicotine dependence
CPT/HCPCS: 96361; 96374; 96375; 99284; J0780; J1200; J1885; J7030

== ENCOUNTER 2022-09-03 10:36 | Outpatient (CLI) | payer BC, MEDICAID, SELFPAY ==
--- NOTE | ~2022-09-03 | MR_ITS ---
MRI of the thoracic spine Clinical History: Pain Technique: Axial T2-weighted and gradient images, and sagittal T1-weighted, T2-weighted, and STIR kunal ges were acquired. Findings: Suspected minimal chronic compression deformity of T11. No acute fracture or subluxation se en. There is mild degenerative disc narrowing throughout the thoracic spine. There are scattered mini mal disc bulges, but no spinal canal stenosis or cord compression identified. No abnormal signal seen in the spinal cord. No epidural mass or collection seen. Paravertebral soft tissues are unremarkable. Impression: Minimal degenerative spondylosis, as above. Suspected mild chronic compression deformity of T11. Reviewed, dictated and finalized at location M. Impression: Minimal degenerative spondylosis, as above. Suspected mild chronic compression deformity of T11.
== END 2022-09-03 10:37 | disposition home or self-care (01) ==
PROVIDERS: PCP Emergency Medicine; Visit Provider Emergency Medicine
DX: M51.9 Unspecified thoracic, thoracolumbar and lumbosacral intervertebral disc disorder (principal); M47.816 Spondylosis without myelopathy or radiculopathy, lumbar region
CPT/HCPCS: 72146

== ENCOUNTER 2022-11-21 13:29 | Emergency (ER) | payer MEDICAID, SELFPAY ==
--- NOTE | 2022-11-21 13:33 | ECG_ITS ---
Measurements Intervals [place] Rate: 48 P: 53 NV: 171 QRS: 32 QRSD: 110 T: 4 QT: 441 QTc: 396 Interpretive Statements SINUS BRADYCARDIA NONSPECIFIC T-WAVE ABNORMALITY ABNORMAL ECG INTERPRETATION BASED ON A DEFAULT AGE OF 40 YEARS COMPARED TO ECG 05/01/2022 06:58:05 NO SIGNIFICANT CHANGES Electronically Signed On 11-21-2022 14:09:58 CDT by Jim Murcia M.D.
[2022-11-21 13:46] VITALS: BP 147/82; PULSE 48; RESP 18; TEMP 36.3; O2SAT 100
--- NOTE | 2022-11-21 13:51 | ED.GENADULT ---
HPI - General Adult General Chief complaint: Chest Pain Stated complaint: Chest Wall Pain Time Seen by Provider: 11/21/22 13:51 Source: patient, RN notes reviewed and old records reviewed Mode of arrival: ambulatory Limitations: no limitations History of Present Illness HPI narrative: 52-year-old male presents to the [facility] with complaints of left-sided chest pain that started this morning when he woke up approximately 430. Reports pain has been pretty constant. Has a history of bradycardia, high cholesterol. male, obese. Onset (ago): hour(s) (10) Treatments prior to arrival: none Related Data Allergies Allergy/AdvReac Type Severity Reaction Status Date / Time Penicillins Allergy Severe Anaphylaxis Verified 11/21/22 13:38 venom-wasp Allergy Intermediate Swelling Verified 11/21/22 13:38 Review of Systems Review of Systems: All systems reviewed & are unremarkable except as noted in HPI and below Constitutional: Constitutional: Reports no additional constitutional complaints Eyes: Eyes: Reports no additional eye complaints ENT: Reports system reviewed and no additional complaints, except as documented Cardiovascular: Cardiovascular: Reports as per HPI, Reports chest pain and Reports dyspnea Respiratory: Respiratory: Reports no additional respiratory complaints, Denies chest congestion, Denies cough and Denies dyspnea Gastrointestinal: Gastrointestinal: Reports no additional gastrointestinal complaints, Denies abdominal pain, Denies nausea and Denies vomiting Musculoskeletal: Musculoskeletal: Reports no additional musculoskeletal complaints Integumentary/Breasts: Skin/Breast: Reports system reviewed and no additional complaints, except as docu Neurologic: Reports system reviewed and no additional complaints, except as documented Psychiatric: Psychiatric: Reports no additional psychiatric complaints Allergic/Immunologic: Allergic/Immunologic: Reports no additional allergic/immunologic complaints [facility] Past Medical History Medical History Sumaya esophagitis Degenerative joint disease Diverticulitis large intestine Erosive gastritis Gastroesophageal reflux disease GERD with esophagitis Hx of adenomatous colonic polyps Lumbar disc disease Migraine Obstructive sleep apnea treated with BiPAP (11/2019) Overweight (BMI 25.0-29.9) Post-polypectomy bleeding Surgical History Surgical History H/O inguinal hernia repair robotic assisted left inguinal hernia repair with mesh 07/25/2021 History of arthroscopy of right knee (03/2019) History of colonoscopy with polypectomy (10/10/20) Family History Family History Father Lung cancer Mother , Old age per Rehan Hypertension Atrial fibrillation Social History Social History Social History: Surrogate decision maker: Ashwini Arteaga, significant other. Code status: Full code. Smoking packs per day: 1.5 Smoking cigarettes per day: 30.0 Years smoked: 12 Smoking pack-years: 18.00 Smoking status: Former smoker Tobacco type: cigarettes Second hand tobacco smoke exposure: Yes Smoking end date: 02/10/00 Alcohol intake: current Drinks per week: 7 Substance use: current Substance use type: marijuana Last use: 10/08/20 Lack of Transportation: No Current Housing: Decline to Answer Concerned About Future Housing: Decline to Answer Difficulty Paying Gas/Electric Bills: Decline to Answer Difficulty Paying for Meds: Decline to Answer Currently Unemployed: Decline to Answer Education: Decline to Answer Difficulty w/ Childcare or Family Care: Decline to Answer Living arrangements: with family Occupation/Education: occupation Additional occupation/education comments: Works for [employer].
[2022-11-21] MEDS: ASPIRIN 81 MG CHEWABLE TABLET 324 MG PO (13:52)
== END 2022-11-21 13:56 | disposition short-term general hospital (02) ==
LOC: EXPCOLL 13:34
PROVIDERS: Emergency Provider Nurse Practitioner; PCP Emergency Medicine
DX: R07.89 Other chest pain (principal); R00.1 Bradycardia, unspecified; E78.00 Pure hypercholesterolemia, unspecified; E66.9 Obesity, unspecified; Z68.28 Body mass index [BMI] 28.0-28.9, adult; K21.00 Gastro-esophageal reflux disease with esophagitis, without bleeding; M51.36 Other intervertebral disc degeneration, lumbar region; G47.33 Obstructive sleep apnea (adult) (pediatric); Z87.891 Personal history of nicotine dependence
CPT/HCPCS: 93005; 99213; A9270; G0463

== ENCOUNTER 2022-11-21 14:19 | Emergency (ER) | payer MEDICAID, SELFPAY ==
--- NOTE | ~2022-11-21 | XR_ITS ---
EXAMINATION: XR chest 2V 11/21/2022 15:03 INDICATION: Chest pain PROCEDURE: 2 view chest COMPARISON: 05/01/2022 FINDINGS: The lungs are clear. The cardiomediastinal silhouette is within normal limits. There are no pleural effusions. There is no pneumothorax suspected. IMPRESSION: 1: NO ACUTE CARDIOPULMONARY DISEASE. Reviewed, dictated and finalized at location A.
--- NOTE | 2022-11-21 14:22 | ECG_ITS ---
Measurements Intervals [place] Rate: 45 P: 54 OR: 176 QRS: 22 QRSD: 105 T: 7 QT: 444 QTc: 388 Interpretive Statements SINUS BRADYCARDIA COMPARED TO ECG 11/21/2022 13:49:01 NO SIGNIFICANT CHANGES Electronically Signed On 11-22-2022 17:06:21 CDT by Scott Clemens M.D.
[2022-11-21 14:29] VITALS: BP 152/90; PULSE 45; RESP 16; TEMP 36.8; O2SAT 98
[2022-11-21 14:58] LABS: Basophils Percent Auto 0.4 % (0.2-1.2); Eosinophils Absolute Auto 0.1 K/mm3 (0-0.3); Eosinophils Percent Auto 2.6 % (0-4.4); Hematocrit 42.1 % (42.0-52.0); Hemoglobin 13.9 g/dL (14.0-18.0); Immature Granulocyte Absolute 0.01 K/mm3 (0.00-0.031); Immature Granulocyte Percent A 0.2 % (0-0.5); Lymphocytes Absolute Auto 2.59 K/mm3 (0.9-3.2); Mean Corpuscular Hemoglobin 27.3 pg (26-34); Mean Corpuscular Volume 82.7 fl (80-100); Monocytes Absolute Auto 0.5 K/mm3 (0.1-0.6); Monocytes Percent Auto 10.2 % (2.6-8.5); Neutrophils Absolute Auto 1.7 K/mm3 (1.3-6.7); Neutrophils Percent Auto 34.6 % (45.5-73.1); Platelet Count Result 254 k/mm3 (150-375); Red Blood Count 5.09 M/mm3 (4.6-6.20); Red Cell Distribution Width 13.8 % (11.5-14.5)
[2022-11-21 15:09] LABS: Alanine Aminotransferase 45 U/L (6-50); Albumin Level 4.4 g/dL (3.5-5.1); Alkaline Phosphatase 87 U/L (38-126); Anion Gap 7 mmol/L (8-16); Aspartate Amino Transferase 36 U/L (17-59); Bilirubin,Total 0.6 mg/dL (0.2-1.3); Blood Urea Nitrogen 12 mg/dL (9-20); Calcium 9.2 mg/dL (8.4-10.2); Carbon Dioxide 22 mmol/L (22-30); Chloride 108 mmol/L (98-107); Estimated CRCL calculation 68 ml/min; Estimated Glomerular Filt Rate > 60; Glucose 87 mg/dL (65-110); Lipase 164 U/L (23-300); Potassium 3.8 mmol/L (3.4-5.0); Sodium 137 mmol/L (137-145)
[2022-11-21 15:14] LABS: Prothrombin Time 13.9 Seconds (11.1-14.7)
[2022-11-21 15:15] LABS: Partial Thromboplastin Time 27.5 SECONDS (22.3-36.8)
[2022-11-21 15:21] LABS: Troponin I < 0.012 ng/mL (0.000-0.034)
[2022-11-21 18:28] VITALS: PULSE 45
[2022-11-21 18:35] VITALS: BP 154/78; PULSE 46; RESP 12; O2SAT 100
[2022-11-21 18:55] LABS: Troponin I < 0.012 ng/mL (0.000-0.034)
[2022-11-21 19:03] VITALS: RESP 14; O2SAT 100
[2022-11-21 19:15] VITALS: PULSE 50; RESP 17; O2SAT 100
[2022-11-21 19:35] VITALS: BP 150/89; PULSE 49; RESP 12; O2SAT 100
--- NOTE | 2022-11-21 19:53 | ED.GENADULT ---
HPI - General Adult General Chief complaint: Chest Pain Stated complaint: left side CP sent from urgent care Time Seen by Provider: 11/21/22 19:09 History of Present Illness HPI narrative: Patient is a 52-year-old gentleman who presents the emergency department with chief complaint of chest discomfort. Patient reports that he has history of bradycardia patient reports that his pain has been going on since around 2 AM the patient attempted go to urgent care and urgent care sent him to the emergency department for further evaluation. Patient states symptoms are extremely mild reports they have been constant since 2 AM patient reports no radiation denies diaphoresis denies shortness of breath. Patient reports no prior history of an ischemic disease. Related Data Allergies Allergy/AdvReac Type Severity Reaction Status Date / Time Penicillins Allergy Severe Anaphylaxis Verified 11/21/22 18:17 venom-wasp Allergy Intermediate Swelling Verified 11/21/22 18:17 Review of Systems Review of Systems: A 10 system review of systems was completed on the patient and is negative except for what is stated in the HPI. Nursing and ancillary documentation was reviewed. [facility] Past Medical History Medical History Sumaya esophagitis Degenerative joint disease Diverticulitis large intestine Erosive gastritis Gastroesophageal reflux disease GERD with esophagitis Hx of adenomatous colonic polyps Lumbar disc disease Migraine Obstructive sleep apnea treated with BiPAP (11/2019) Overweight (BMI 25.0-29.9) Post-polypectomy bleeding Surgical History Surgical History H/O inguinal hernia repair robotic assisted left inguinal hernia repair with mesh 07/25/2021 History of arthroscopy of right knee (03/2019) History of colonoscopy with polypectomy (10/10/20) Family History Family History Father Lung cancer Mother , Old age per Rehan Hypertension Atrial fibrillation Social History Social History Social History: Surrogate decision maker: Ashwini Arteaga, significant other. Code status: Full code. Smoking packs per day: 1.5 Smoking cigarettes per day: 30.0 Years smoked: 12 Smoking pack-years: 18.00 Smoking status: Former smoker Tobacco type: cigarettes Second hand tobacco smoke exposure: Yes Smoking end date: 02/10/00 Alcohol intake: current Drinks per week: 7 Substance use: current Substance use type: marijuana Last use: 10/08/20 Lack of Transportation: No Current Housing: Decline to Answer Concerned About Future Housing: Decline to Answer Difficulty Paying Gas/Electric Bills: Decline to Answer Difficulty Paying for Meds: Decline to Answer Currently Unemployed: Decline to Answer Education: Decline to Answer Difficulty w/ Childcare or Family Care: Decline to Answer Living arrangements: with family Occupation/Education: occupation Additional occupation/education comments: Works for [employer]. Spiritual care concerns: No Exam Narrative: GENERAL: Well-appearing, well-nourished, and in no acute distress. HEAD: Normocephalic, atraumatic. EYES: PERRLA and EOMI. ENT: Nares clear, no rhinorrhea or epistaxis. Mucous membranes moist. NECK: Supple. CHEST: Clear to auscultation. No respiratory distress. HEART: Regular rate and rhythm. No murmur heard. Normal peripheral pulses. ABDOMEN: Soft, nontender, nondistended, normal active bowel sounds. EXTREMITIES: Normal range of motion. No edema. SKIN: Warm, dry, no rash. NEURO: No focal deficits. Alert and oriented x3. PSYCH: Normal mood and affect. Course Vital Signs Vital signs: Vital Signs Temperature 36.8 C 11/21/22 14:29 Pulse Rate 45 L 11/21/22 14:29 Respirat
== END 2022-11-21 20:12 | disposition home or self-care (01) ==
PROVIDERS: Emergency Medicine; Emergency Provider Emergency Medicine; PCP Emergency Medicine
DX: R07.89 Other chest pain (principal); R00.1 Bradycardia, unspecified; K21.00 Gastro-esophageal reflux disease with esophagitis, without bleeding; G47.33 Obstructive sleep apnea (adult) (pediatric); M19.90 Unspecified osteoarthritis, unspecified site; E66.3 Overweight; Z68.28 Body mass index [BMI] 28.0-28.9, adult; Z86.010 Personal history of colon polyps; Z87.891 Personal history of nicotine dependence
CPT/HCPCS: 36415; 71046; 80053; 83690; 84484; 85025; 85610; 85730; 93005; 99213; 99284; A9270; G0463

== ENCOUNTER 2023-02-10 11:19 | Outpatient (CLI) | payer OTHER, SELFPAY ==
--- NOTE | ~2023-02-10 | XR_ITS ---
Right wrist Technique: PA and lateral views were obtained. Clinical History: Paresthesia Findings: No acute fracture or dislocation is seen. Osseous alignment is anatomic. Joint spaces are p reserved. Soft tissues are unremarkable. Impression: Unremarkable right wrist radiographs. Reviewed, dictated and finalized at location M. STERED RADIOGRAPHER Impression: Unremarkable right wrist radiographs.
--- NOTE | ~2023-02-10 | XR_ITS ---
Left wrist Technique: PA and lateral views were obtained. Clinical History: Paresthesia Findings: No acute fracture or dislocation is seen. Osseous alignment is anatomic. Joint spaces are p reserved. Soft tissues are unremarkable. Impression: Unremarkable left wrist radiographs. Reviewed, dictated and finalized at location M. LASS LENS GRINDER Impression: Unremarkable left wrist radiographs.
== END 2023-02-10 11:20 | disposition home or self-care (01) ==
PROVIDERS: PCP Emergency Medicine; Visit Provider Emergency Medicine
DX: R20.0 Anesthesia of skin (principal); R20.2 Paresthesia of skin
CPT/HCPCS: 73100

== ENCOUNTER 2023-03-05 06:11 | Emergency (ER) | payer OTHER, SELFPAY ==
[2023-03-05] VITALS (9 sets, daily range): BP systolic 140–172; BP diastolic 80–96; PULSE 48–56; RESP 14–18; TEMP 36.3; O2SAT 97–100
--- NOTE | ~2023-03-05 | CT_ITS ---
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 The dose-length product was 383.76 mGy-cm. Maximum intensity projection 3D-re constructions of the aorta and other arteries were constructed by the technologist on a separate work station. Automated exposure control and iterative reconstruction technique were employed. COMPARISON: None. FINDINGS: Heart size is normal. No significant pleural or pericardial effusion. Study is technically adequate without evidence for pulmonary embolism. Heart size normal. No thoracic lymphadenopathy. The re is mildly prominent left axillary lymph node, likely reactive. No endobronchial lesions. There is an 8 mm left lower lobe nodule, image 80. No pneumothorax. There is subpleural bands in the lower vanessa gs. No acute osseous abnormality. IMPRESSION: 1. No evidence for pulmonary embolism. 2: Left lower lobe nodule measuring 8 mm, suspicious. Recommend follow-up low dose CT in 3 months. Reviewed, dictated and finalized at location L. K MIXER OPERATOR IMPRESSION: 1. No evidence for pulmonary embolism. 2: Left lower lobe nodule measuring 8 mm, suspicious. Recommend follow-up low d ose CT in 3 months.
--- NOTE | ~2023-03-05 | XR_ITS ---
Portable chest x-ray Comparison: 11/21/2022 Clinical History: Cough Findings: Focal density at the left midlung is present, nonspecific. Right lung clear. Cardiomedias tinal silhouette is stable. Bones and soft tissues are unremarkable. Impression: Focal density left mid lung, nonspecific. This could reflect confluence of shadows, or possibly focal atelectasis, less likely pulmonary nodule. Consider follow-up exam or chest CT. Reviewed, dictated and finalized at location . R COACH TOUR OPERATOR Impression: Focal density left mid lung, nonspecific. This could reflect confluence of shad ows, or possibly focal atelectasis, less likely pulmonary nodule. Consider foll ow-up exam or chest CT.
--- NOTE | 2023-03-05 06:16 | ECG_ITS ---
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
[2023-03-05 07:03] LABS: Influenza A QL RT-PCR Negative (Negative); Influenza B QL RT-PCR Negative (Negative); RSV RNA, RT-PCR Negative (Negative); SARS-CoV-2 RNA PCR Negative (Negative)
--- NOTE | 2023-03-05 07:17 | ED.GENADULT ---
HPI - General Adult General Chief complaint: Upper Respiratory Infection Stated complaint: Nasty cough, chest pressure' Time Seen by Provider: 03/05/23 07:03 History of Present Illness HPI narrative: Patient is a 52-year-old male who presents ER with cough. Ongoing for 3 days. He feels like he has something stuck down low in his chest. When he does have productive cough it is clear sputum. He reports chronic sinus issues with some mild sore throat. No fevers or chills. Reports he has pain in his central chest when he coughs. He has no exertional dyspnea. No exertional chest discomfort. No history of heart disease or COPD. No history of asthma. Denies alleviating factors. Related Data Home Medications Medication Instructions Recorded Confirmed fenofibrate nanocrystallized 48 mg 48 mg PO DAILY 02/10/23 02/17/23 tablet Allergies Allergy/AdvReac Type Severity Reaction Status Date / Time Penicillins Allergy Severe Anaphylaxis Verified 03/05/23 06:37 venom-wasp Allergy Intermediate Swelling Verified 03/05/23 06:37 Review of Systems Review of Systems: All systems reviewed & are unremarkable except as noted in HPI and below Constitutional: Constitutional: Reports no additional constitutional complaints ENT: Reports system reviewed and no additional complaints, except as documented, Reports nasal congestion and Denies sore throat Cardiovascular: Cardiovascular: Reports chest pain, Denies rapid heart rate and Denies radiating jaw, neck or arm pain Respiratory: Respiratory: Reports chest congestion, Reports cough, Denies dyspnea and Denies wheezing Gastrointestinal: Gastrointestinal: Reports no additional gastrointestinal complaints PMFSH Past Medical History Medical History Sumaya esophagitis Degenerative joint disease Diverticulitis large intestine Erosive gastritis Gastroesophageal reflux disease GERD with esophagitis Hx of adenomatous colonic polyps Lumbar disc disease Migraine Obstructive sleep apnea treated with BiPAP (11/2019) Overweight (BMI 25.0-29.9) Post-polypectomy bleeding Surgical History Surgical History H/O inguinal hernia repair robotic assisted left inguinal hernia repair with mesh 07/25/2021 History of arthroscopy of right knee (03/2019) History of colonoscopy with polypectomy (10/10/20) Family History Family History Father Lung cancer Mother , Old age per Rehan Hypertension Atrial fibrillation Social History Social History Social History: Surrogate decision maker: Ashwini Arteaga, significant other. Code status: Full code. Smoking packs per day: 1.5 Smoking cigarettes per day: 30.0 Years smoked: 12 Smoking pack-years: 18.00 Smoking status: Former smoker Tobacco type: cigarettes Second hand tobacco smoke exposure: Yes Smoking end date: 02/10/00 Alcohol intake: current Drinks per week: 7 Substance use: current Substance use type: marijuana Last use: 10/08/20 Lack of Transportation: No Current Housing: Decline to Answer Concerned About Future Housing: Decline to Answer Difficulty Paying Gas/Electric Bills: Decline to Answer Difficulty Paying for Meds: Decline to Answer Currently Unemployed: Decline to Answer Education: Decline to Answer Difficulty w/ Childcare or Family Care: Decline to Answer Living arrangements: with family Occupation/Education: occupation Additional occupation/education comments: Works for [employer]. Spiritual care concerns: No Exam Narrative: GENERAL: Well-appearing, well-nourished, and in no acute distress. HEAD: Normocephalic, atraumatic. ENT: Mucous membranes moist. CHEST: Clear to auscultation. No respiratory distress. HEART: Bradycardic and regular. Normal peripheral pu
[2023-03-05 07:39] LABS: Basophils Percent Auto 0.4 % (0.2-1.2); Eosinophils Absolute Auto 0.1 K/mm3 (0-0.3); Eosinophils Percent Auto 1.8 % (0-4.4); Hematocrit 41.3 % (42.0-52.0); Hemoglobin 13.5 g/dL (14.0-18.0); Immature Granulocyte Absolute 0.01 K/mm3 (0.00-0.031); Immature Granulocyte Percent A 0.2 % (0-0.5); Lymphocytes Absolute Auto 1.81 K/mm3 (0.9-3.2); Mean Corpuscular HGB Conc 32.7 g/dl (32-36); Mean Corpuscular Volume 82.6 fl (80-100); Mean Platelet Volume 8.9 fl (7.4-10.4); Monocytes Absolute Auto 0.5 K/mm3 (0.1-0.6); Monocytes Percent Auto 9.1 % (2.6-8.5); Neutrophils Percent Auto 55.5 % (45.5-73.1); Platelet Count Result 247 k/mm3 (150-375); Red Cell Distribution Width 15.4 % (11.5-14.5); White Blood Count 5.5 K/mm3 (4.5-10.0)
[2023-03-05 07:53] LABS: INR 1.1; Prothrombin Time 14.2 Seconds (11.1-14.7)
[2023-03-05 07:54] LABS: Partial Thromboplastin Time 26.5 SECONDS (22.3-36.8)
[2023-03-05 08:02] LABS: Troponin I < 0.012 ng/mL (0.000-0.034)
[2023-03-05 08:03] LABS: Alanine Aminotransferase 29 U/L (6-50); Albumin Level 4.2 g/dL (3.5-5.1); Alkaline Phosphatase 63 U/L (38-126); Aspartate Amino Transferase 33 U/L (17-59); Bilirubin,Total 0.6 mg/dL (0.2-1.3); Blood Urea Nitrogen 14 mg/dL (9-20); Calcium 9.3 mg/dL (8.4-10.2); Carbon Dioxide 25 mmol/L (22-30); Estimated CRCL calculation 68 ml/min; Estimated Glomerular Filt Rate > 60; Glucose 105 mg/dL (65-110); Potassium 4.4 mmol/L (3.4-5.0); Sodium 142 mmol/L (137-145)
[2023-03-05 08:18] LABS: Anion Gap 5 mmol/L (8-16); Chloride 112 mmol/L (98-107)
== END 2023-03-05 09:46 | disposition home or self-care (01) ==
PROVIDERS: Emergency Medicine; Emergency Provider Emergency Medicine; PCP Emergency Medicine
DX: R91.1 Solitary pulmonary nodule (principal); Z20.822 Contact with and (suspected) exposure to COVID-19; K21.9 Gastro-esophageal reflux disease without esophagitis; G47.33 Obstructive sleep apnea (adult) (pediatric); E66.3 Overweight; Z68.29 Body mass index [BMI] 29.0-29.9, adult; Z86.010 Personal history of colon polyps; R00.1 Bradycardia, unspecified
CPT/HCPCS: 36415; 71045; 71275; 80053; 84484; 85025; 85610; 85730; 87637; 93005; 99284; Q9967

== ENCOUNTER 2023-03-16 09:53 | Emergency (ER) | payer OTHER, SELFPAY ==
[2023-03-16 10:06] VITALS: BP 144/89; PULSE 52; RESP 16; TEMP 36.7; O2SAT 98
--- NOTE | 2023-03-16 11:01 | ED.EAR ---
HPI - Ear Problem General Chief complaint: Ear Stated complaint: muffled sound in ears Time Seen by Provider: 03/16/23 11:01 Source: patient Mode of arrival: ambulatory Limitations: no limitations History of Present Illness HPI Narrative: 52-year-old male presents with complaint of nasal congestion, bilateral ear pain, muffled hearing, fatigue and chills for 2 days. Afebrile. Denies cough, sore throat. Reports wearing several layers of clothes and still feeling cold . No nausea vomiting or diarrhea. All systems reviewed and negative except as noted above. Related Data Home Medications Medication Instructions Recorded Confirmed fenofibrate nanocrystallized 48 mg 48 mg PO DAILY 02/10/23 03/09/23 tablet Allergies Allergy/AdvReac Type Severity Reaction Status Date / Time Penicillins Allergy Severe Anaphylaxis Verified 03/16/23 10:15 venom-wasp Allergy Intermediate Swelling Verified 03/16/23 10:15 Review of Systems Review of Systems: CONSTITUTIONAL: Denies fever, chills, or sweats. Reports fatigue. EYES: Denies visual changes, redness, or discharge. ENT: reports congestion, bilateral ear pain. Denies sore throat CARDIOVASCULAR: Denies chest pain, palpitations, or edema. RESPIRATORY: Denies cough or dyspnea. GASTROINTESTINAL: Denies abdominal pain, nausea, vomiting, or diarrhea. GENITOURINARY: Denies dysuria or hematuria. SKIN: Denies rash or itching. MUSCULOSKELETAL: Denies back pain, joint pain . Reports myalgia. NEUROLOGIC: Denies headache, numbness, or weakness. PSYCHIATRIC: Denies anxiety or depression. All other systems reviewed are negative, except as documented in HPI. [facility] Past Medical History Medical History Sumyaa esophagitis Degenerative joint disease Diverticulitis large intestine Erosive gastritis Gastroesophageal reflux disease GERD with esophagitis Hx of adenomatous colonic polyps Lumbar disc disease Migraine Obstructive sleep apnea treated with BiPAP (11/2019) Overweight (BMI 25.0-29.9) Post-polypectomy bleeding Surgical History Surgical History H/O inguinal hernia repair robotic assisted left inguinal hernia repair with mesh 07/25/2021 History of arthroscopy of right knee (03/2019) History of colonoscopy with polypectomy (10/10/20) Family History Family History Father Lung cancer Mother , Old age per [place] Hypertension Atrial fibrillation Social History Social History Social History: Surrogate decision maker: Ashwini Arteaga, significant other. Code status: Full code. Smoking packs per day: 1.5 Smoking cigarettes per day: 30.0 Years smoked: 12 Smoking pack-years: 18.00 Smoking status: Former smoker Tobacco type: cigarettes Second hand tobacco smoke exposure: Yes Smoking end date: 02/10/00 Alcohol intake: current Drinks per week: 7 Substance use: current Substance use type: marijuana Last use: 10/08/20 Lack of Transportation: No Current Housing: Decline to Answer Concerned About Future Housing: Decline to Answer Difficulty Paying Gas/Electric Bills: Decline to Answer Difficulty Paying for Meds: Decline to Answer Currently Unemployed: Decline to Answer Education: Decline to Answer Difficulty w/ Childcare or Family Care: Decline to Answer Living arrangements: with family Occupation/Education: occupation Additional occupation/education comments: Works for [employer]. Spiritual care concerns: No Comments At time of signature, agree with nursing past medical, surgical, social and family history. There is no relevant family history pertinent to the presenting complaint. Exam Narrative: GENERAL: This is a well-nourished, well-developed patient, in no apparent
== END 2023-03-16 11:27 | disposition home or self-care (01) ==
PROVIDERS: Emergency Provider Nurse Practitioner Family; PCP Emergency Medicine
DX: B34.9 Viral infection, unspecified (principal); H66.91 Otitis media, unspecified, right ear; Z87.891 Personal history of nicotine dependence; K21.9 Gastro-esophageal reflux disease without esophagitis; K21.00 Gastro-esophageal reflux disease with esophagitis, without bleeding; G47.33 Obstructive sleep apnea (adult) (pediatric)
CPT/HCPCS: 87804; 99213; G0463

== ENCOUNTER 2023-04-06 04:31 | Emergency (ER) | payer OTHER, SELFPAY ==
--- NOTE | ~2023-04-06 | XR_ITS ---
Right Knee Technique: AP, lateral, and sunrise views were obtained. Clinical History: Pain Findings: No fracture or dislocation is seen. Osseous alignment is anatomic. There is minimal spurrin g at the intercondylar notch and patella. Soft tissues are unremarkable. No joint effusion is seen. Impression: Minimal degenerative spurring, as above. Reviewed, dictated and finalized at location M. AL WINDER Impression: Minimal degenerative spurring, as above.
[2023-04-06 04:33] VITALS: BP 157/80; PULSE 63; RESP 20; TEMP 36.1; O2SAT 100
[2023-04-06 04:48] VITALS: BP 135/75; PULSE 66; RESP 15; TEMP 36.7; O2SAT 98
--- NOTE | 2023-04-06 04:57 | ED.GENADULT ---
HPI - General Adult General Chief complaint: Extremity Problem,Nontraumatic Stated complaint: Right knee pain, swelling Time Seen by Provider: 04/06/23 04:50 History of Present Illness HPI narrative: This is a 52-year-old male presenting with atraumatic right knee pain. Patient woke from sleep and had shooting pains in his right knee. Patient notes that he had surgery in that knee about 40 years ago. Patient has history of degenerative joint disease. Patient did not take anything for pain and came straight to the emergency room. No trauma. No fevers. No significant swelling. Related Data Home Medications Medication Instructions Recorded Confirmed fenofibrate nanocrystallized 48 mg 48 mg PO DAILY 02/10/23 03/09/23 tablet Allergies Allergy/AdvReac Type Severity Reaction Status Date / Time Penicillins Allergy Severe Anaphylaxis Verified 04/06/23 04:36 venom-wasp Allergy Intermediate Swelling Verified 04/06/23 04:36 [facility] Past Medical History Medical History Sumaya esophagitis Degenerative joint disease Diverticulitis large intestine Erosive gastritis Gastroesophageal reflux disease GERD with esophagitis Hx of adenomatous colonic polyps Lumbar disc disease Migraine Obstructive sleep apnea treated with BiPAP (11/2019) Overweight (BMI 25.0-29.9) Post-polypectomy bleeding Surgical History Surgical History H/O inguinal hernia repair robotic assisted left inguinal hernia repair with mesh 07/25/2021 History of arthroscopy of right knee (03/2019) History of colonoscopy with polypectomy (10/10/20) Family History Family History Father Lung cancer Mother , Old age per Rehan Hypertension Atrial fibrillation Social History Social History Social History: Surrogate decision maker: Ashwini Arteaga, significant other. Code status: Full code. Smoking packs per day: 1.5 Smoking cigarettes per day: 30.0 Years smoked: 12 Smoking pack-years: 18.00 Smoking status: Former smoker Tobacco type: cigarettes Second hand tobacco smoke exposure: Yes Smoking end date: 02/10/00 Alcohol intake: current Drinks per week: 7 Substance use: current Substance use type: marijuana Last use: 10/08/20 Lack of Transportation: No Current Housing: Decline to Answer Concerned About Future Housing: Decline to Answer Difficulty Paying Gas/Electric Bills: Decline to Answer Difficulty Paying for Meds: Decline to Answer Currently Unemployed: Decline to Answer Education: Decline to Answer Difficulty w/ Childcare or Family Care: Decline to Answer Living arrangements: with family Occupation/Education: occupation Additional occupation/education comments: Works for [employer]. Spiritual care concerns: No Exam Narrative: APPEARANCE: No apparent distress. Head: atraumatic. EYES: EOMI, NOSE: Atraumatic NECK: Trachea midline RESPIRATORY: No increased rate of breathing CARDIOVASCULAR: RRR, ABDOMINAL: Non-distended MUSCULOSKELETAl: Focal exam of the right knee revealed no swelling, no erythema, or warmth. Patient able to ambulate with a normal gait. NEURO: Alert. Moving 4/4 extremities SKIN:: Warm, dry. Normal color PSYCHIATRIC: Normal affect Course Vital Signs Vital signs: Vital Signs Temperature 97.0 F L 04/06/23 04:33 Pulse Rate 63 04/06/23 04:33 Respiratory Rate 20 04/06/23 04:33 Blood Pressure 157/80 H 04/06/23 04:33 Pulse Oximetry 100 04/06/23 04:33 Oxygen Delivery Room Air 04/06/23 04:33 Temperature 98.0 F 04/06/23 04:48 Pulse Rate 66 04/06/23 04:48 Respiratory Rate 15 04/06/23 04:48 Blood Pressure 135/75 04/06/23 04:48 Pulse Oximetry 98 04/06/23 04:48 Oxygen Delivery Room Air 04/06/23 04:33
[2023-04-06] MEDS: ACETAMINOPHEN 500 MG TABLET 1000 MG PO (04:58)
[2023-04-06] MEDS: KETOROLAC 30 MG/ML VIAL (*BKC) IM (04:59)
== END 2023-04-06 06:00 | disposition home or self-care (01) ==
PROVIDERS: Emergency Provider Emergency Medicine; PCP Emergency Medicine
DX: M25.561 Pain in right knee (principal); Z87.891 Personal history of nicotine dependence
CPT/HCPCS: 73562; 96372; 99283; A9270; J1885

== ENCOUNTER 2023-05-11 14:45 | Outpatient (RCR) | payer OTHER, SELFPAY ==
--- NOTE | 2023-03-16 15:26 | OTOPEVAL1 ---
Assessment and note entered by Wilver Lane, HELGA/Vinicius, CHT Evaluation Information Diagnosis Bilateral carpal tunnel syndrome Subjective Information Patient reports experiencing symptoms for months and it has lately become worse. Reports intermittent tingling and pain, and recently began dropping items. He reports sometimes when he's driving he has to sinker puller because of the tingling. He is right handed. Reported Pain Level Additional Pain Score Comments At rest he typically has no pain. Pain can get up to 8/10 at worst . Assessment OT Clinical Summary Patient referred to OT with dx of bilateral carpal tunnel syndrome. He presents with positive Tinel' s and Phalen's bilaterally. He demonstrates reduced functional strength, flexibility, and pain with UE use. Skilled OT indicated to maximize functional UE use and reduce nerve compression via therapeutic exercise, HEP instruction/progression , manual therapy, and modalities. Plan of Care Interventions Therapeutic Exercise,Manual Therapy,Therapeutic Activities,Hot Pack/Cold Pack,Ultrasound,Paraffin OT Services Indicated Yes Treatment Frequency and 1-2x/week for 8 visits Duration These treatments will address the objective and functional deficits as defined above. The patient will be advanced safely and appropriately in order for the patient to progress towards his/her prior level of function. Additional exercises will be introduced and as well as a comprehensive home exercise program upon discharge, if needed, ?to ensure carryover of functional gains achieved in the clinic. This treatment plan has been reviewed and agreement upon by the patient.
--- NOTE | 2023-04-10 14:31 | PCOTNOTE ---
Late note for 04/08 - Patient called and cancelled appt today due to having to work late.
--- NOTE | 2023-04-13 16:05 | OTOPPROG ---
Assessment and note entered by Wilver Lane, HELGA/Vinicius, CHT Progress Update 04/13/23 Diagnosis Bilateral carpal tunnel syndrome Subjective Information Patient reports progress with his symptoms since starting therapy. He no longer reports needing to dust puller when he's driving to rest his hands. He reports he is no longer dropping items. He continues to have flair ups of pain and onset of tingling. He reports his right hand consistently gets down to 0/10 on the pain scale, but the lowest the left side gets is 1/10. Assessment OT Clinical Summary Patient referred to OT with dx of bilateral carpal tunnel syndrome. He has made excellent progress with therapy the past 4 weeks, demonstrating reduced pain and reduced frequency and severity of carpal tunnel symptoms. 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 Overall he is making excellent progress with therapy. Continued skilled OT indicated to maximize functional UE use and reduce nerve compression via therapeutic exercise, HEP instruction/progression, manual therapy, and modalities. Plan of Care Interventions Therapeutic Exercise,Manual Therapy,Therapeutic Activities,Hot Pack/Cold Pack,Ultrasound,Paraffin OT Services Indicated Yes Treatment Frequency and 1x/week for 4 visits Duration These treatments will address the objective and functional deficits as defined above. The patient will be advanced safely and appropriately in order for the patient to progress towards his/her prior level of function. Additional exercises will be introduced and as well as a comprehensive home exercise program upon discharge, if needed, ?to ensure carryover of functional gains achieved in the clinic. This treatment plan has been reviewed and agreement upon by the patient.
--- NOTE | 2023-04-13 16:06 | OPREHPOC ---
Outpatient Therapy Plan of Care This is a Multidisciplinary Plan of Care that may contain components documented by all disciplines (PT, OT, and ST.) OT Problem 1 OT Problem #1 Knowledge Deficit OT Goal 1 Goal 1. Patient to report reduced pain in bilateral hands, report 5/10 or less at worst . ---OT POC UPDATE 04/13/23--- 1. Met; Upgrade goal: Patient to progress to no pain at rest and 2/10 at worst . Target Visit 9 OT Problem 2 OT Problem #2 Impaired Flexibility OT Goal 1 Goal 1. Patient to be able to complete the reverse phalen's test x60 sec without onset of paresthesia . ---OT POC UPDATE 04/13/23--- 1. Not met, continue to treat nerve compression Target Visit 8
--- NOTE | 2023-05-04 10:27 | PCOTNOTE ---
Patient called & cancelled scheduled appointment this date due to being called into work.
--- NOTE | 2023-05-11 15:10 | OTOPDC ---
Assessment and note entered by Wilver Lane, HELGA/Vinicius, T Discharge Summary 05/11/23 Diagnosis Bilateral carpal tunnel syndrome Subjective Information Patient reports he hasn't had any pain or symptoms in his hands in a week. He reports a week ago the worst his hands felt were 1/10 . He reports he no longer drops items and no longer is having flair ups of pain and tingling. Patient no longer having a positive Tinel's at the carpal tunnel. No longer having positive Phalen's test. Director Of Restaurant and pinch strengths are WNL. Assessment OT Clinical Summary Patient referred to OT with dx of bilateral carpal tunnel syndrome. He has made excellent progress with therapy the past 8 weeks, progressing to no pain and no hand paresthesia for the last week. All provocative tests today were negative. Director Of Restaurant and pinch strength is WNL bilaterally. No further skilled OT indicated at this time. Plan of Care OT Services Indicated No
== END 2023-05-12 07:10 | disposition home or self-care (01) ==
LOC: ANHOT 14:45
PROVIDERS: PCP Emergency Medicine; Visit Provider Emergency Medicine
DX: G56.03 Carpal tunnel syndrome, bilateral upper limbs (principal)
CPT/HCPCS: 87804; 97018; 97110; 97140; 97165; 99213; G0463

== ENCOUNTER 2023-05-12 11:52 | Emergency (ER) | payer OTHER, SELFPAY ==
[2023-05-12 12:17] VITALS: BP 151/86; PULSE 52; RESP 16; TEMP 36.6; O2SAT 100
--- NOTE | 2023-05-12 13:07 | ED.GENADULT ---
HPI - General Adult General Chief complaint: Upper Respiratory Infection Stated complaint: sore throat,cough Time Seen by Provider: 05/12/23 13:07 Source: patient, RN notes reviewed and old records reviewed Mode of arrival: ambulatory Limitations: no limitations History of Present Illness HPI narrative: 52-year-old male presents to the [facility] with 2 day history of sore throat and cough. No treatment prior to arrival. Does see a janitorial cleaner Dr. Gillette who monitors his heart rate, rhythm and blood pressure. Patient denies any fevers. Denies any other symptoms Onset (ago): day(s) (2) Related Data Home Medications Medication Instructions Recorded Confirmed fenofibrate nanocrystallized 48 mg 48 mg PO DAILY 02/10/23 05/12/23 tablet Allergies Allergy/AdvReac Type Severity Reaction Status Date / Time Penicillins Allergy Severe Anaphylaxis Verified 05/12/23 12:26 venom-wasp Allergy Intermediate Swelling Verified 05/12/23 12:26 Review of Systems Review of Systems: All systems reviewed & are unremarkable except as noted in HPI and below Constitutional: Constitutional: Reports no additional constitutional complaints Eyes: Eyes: Reports no additional eye complaints ENT: Reports as per HPI and Reports sore throat Cardiovascular: Cardiovascular: Reports no additional cardiovascular complaints, Denies chest pain and Denies dyspnea Respiratory: Respiratory: Reports as per HPI, Denies chest congestion, Reports cough and Denies dyspnea Gastrointestinal: Gastrointestinal: Reports no additional gastrointestinal complaints, Denies abdominal pain, Denies nausea and Denies vomiting Musculoskeletal: Musculoskeletal: Reports no additional musculoskeletal complaints Integumentary/Breasts: Skin/Breast: Reports system reviewed and no additional complaints, except as docu Neurologic: Reports system reviewed and no additional complaints, except as documented Psychiatric: Psychiatric: Reports no additional psychiatric complaints Allergic/Immunologic: Allergic/Immunologic: Reports no additional allergic/immunologic complaints [facility] Past Medical History Medical History Acute blood loss anemia Sumaya esophagitis Chest pain Degenerative joint disease Diverticulitis large intestine Elevated blood pressure reading in office without diagnosis of hypertension Encounter for other specified surgical aftercare Erosive gastritis Gastroesophageal reflux disease GERD with esophagitis Hx of adenomatous colonic polyps Inguinal hernia Left groin pain Left inguinal hernia Lumbar disc disease Migraine Migraine Near syncope Obstructive sleep apnea treated with BiPAP (11/2019) Overweight (BMI 25.0-29.9) Post-polypectomy bleeding Pre-procedural laboratory examination Rectal bleeding Rectal hemorrhage Right knee DJD Sinusitis Unspecified abdominal pain Vomiting Surgical History Surgical History H/O inguinal hernia repair robotic assisted left inguinal hernia repair with mesh 07/25/2021 History of arthroscopy of right knee (03/2019) History of colonoscopy with polypectomy (10/10/20) History of right inguinal hernia repair Family History Family History Father Lung cancer Mother , Old age per Rehan Hypertension Atrial fibrillation Social History Social History Social History: Surrogate decision maker: Ashwini Arteaga, significant other. Code status: Full code. Smoking packs per day: 1.5 Smoking cigarettes per day: 30.0 Years smoked: 12 Smoking pack-years: 18.00 Smoking status: Former smoker Tobacco type: cigarettes Second hand tobacco smoke exposure: Yes Smoking end date: 02/10/00 Alcohol intake: current Drinks per week: 7 Substance use: current Substance use type: ma
== END 2023-05-12 13:20 | disposition home or self-care (01) ==
PROVIDERS: Emergency Provider Nurse Practitioner; PCP Emergency Medicine
DX: R09.82 Postnasal drip (principal); Z20.822 Contact with and (suspected) exposure to COVID-19; Z87.891 Personal history of nicotine dependence; F12.90 Cannabis use, unspecified, uncomplicated; K21.00 Gastro-esophageal reflux disease with esophagitis, without bleeding; G47.33 Obstructive sleep apnea (adult) (pediatric); M17.11 Unilateral primary osteoarthritis, right knee
CPT/HCPCS: 87081; 87426; 87804; 87880; 99213; G0463

== ENCOUNTER 2023-08-14 08:56 | Outpatient (CLI) | payer OTHER, SELFPAY | END 2023-08-14 08:57 | disposition home or self-care (01) | LOC: ANHAUDASC 09:03 | PROVIDERS: PCP Emergency Medicine; Visit Provider Emergency Medicine | DX: H90.42 Sensorineural hearing loss, unilateral, left ear, with unrestricted hearing on the contralateral side (principal); H90.71 Mixed conductive and sensorineural hearing loss, unilateral, right ear, with unrestricted hearing on the contralateral side | CPT/HCPCS: 92557; 92567 ==

== ENCOUNTER 2023-09-23 09:30 | Emergency (ER) | payer OTHER, SELFPAY ==
[2023-09-23 09:38] VITALS: BP 125/77; PULSE 56; RESP 16; TEMP 37.1; O2SAT 99
--- NOTE | 2023-09-23 09:48 | ED.EAR ---
HPI - Ear Problem General Chief complaint: Ear Stated complaint: Right Ear Irritation Time Seen by Provider: 09/23/23 09:42 Source: patient Mode of arrival: ambulatory Limitations: no limitations History of Present Illness HPI Narrative: Fallon is a 53-year-old male patient presenting to the clinic today with complaints of right ear pain this been going on for approximately 3 days. He reports he has been suffering from allergies and having her runny nose and some congestion. He denies any fever or chills. Has recently had surgery on the right ear drum-states the ENT drained his ear by making a small incision in his tympanic membrane. Reports he is having some tenderness over the eustachian tube. Related Data Allergies Allergy/AdvReac Type Severity Reaction Status Date / Time Penicillins Allergy Severe Anaphylaxis Verified 09/23/23 09:36 venom-wasp Allergy Intermediate Swelling Verified 09/23/23 09:36 Review of Systems Review of Systems: Pertinent positives per HPI. Patient denies any fever, chills, rash, headache, visual changes, dizziness, cough, runny nose, sore throat, shortness of breath, chest pain, palpitations, nausea, vomiting, diarrhea, constipation, abdominal pain, or any urinary issues. [facility] Past Medical History Medical History Acute blood loss anemia Sumaya esophagitis Chest pain Degenerative joint disease Diverticulitis large intestine Elevated blood pressure reading in office without diagnosis of hypertension Encounter for other specified surgical aftercare Erosive gastritis Gastroesophageal reflux disease GERD with esophagitis Hx of adenomatous colonic polyps Inguinal hernia Left groin pain Left inguinal hernia Lumbar disc disease Migraine Migraine Near syncope Obstructive sleep apnea treated with BiPAP (11/2019) Overweight (BMI 25.0-29.9) Post-polypectomy bleeding Pre-procedural laboratory examination Rectal bleeding Rectal hemorrhage Right knee DJD Sinusitis Unspecified abdominal pain Vomiting Surgical History Surgical History H/O inguinal hernia repair robotic assisted left inguinal hernia repair with mesh 07/25/2021 History of arthroscopy of right knee (03/2019) History of colonoscopy with polypectomy (10/10/20) History of right inguinal hernia repair Family History Family History Father Lung cancer Mother , Old age per Rehan Hypertension Atrial fibrillation Social History Social History Social History: Surrogate decision maker: Ashwini Arteaga, significant other. Code status: Full code. Smoking packs per day: 1.5 Smoking cigarettes per day: 30.0 Years smoked: 12 Smoking pack-years: 18.00 Smoking status: Former smoker Tobacco type: cigarettes Second hand tobacco smoke exposure: Yes Smoking end date: 02/10/00 Alcohol intake: current Drinks per week: 7 Substance use: current Substance use type: marijuana Last use: 10/08/20 Do You Feel Safe in your Home?: Yes Lack of Transportation: No Lack of Food: Never True Current Housing: I Have Housing Concerned About Future Housing: No Difficulty Paying Gas/Electric Bills: No Difficulty Paying for Meds: No Currently Unemployed: No Education: High School Diploma/GED Difficulty w/ Childcare or Family Care: No Living arrangements: with family Occupation/Education: occupation Additional occupation/education comments: Works for [employer]. Spiritual care concerns: No Comments At the time of my signature, I reviewed and agree with the nursing past medical, surgical, social, and family history. There is no relevant family history pertinent to the patient complaint. Exam Narrative: General: Well-developed, well nourished, in no apparent
== END 2023-09-23 09:54 | disposition home or self-care (01) ==
PROVIDERS: Emergency Provider Nurse Practitioner Family; PCP Emergency Medicine
DX: H92.01 Otalgia, right ear (principal); H69.91 Unspecified Eustachian tube disorder, right ear; Z87.891 Personal history of nicotine dependence; G47.33 Obstructive sleep apnea (adult) (pediatric); M17.11 Unilateral primary osteoarthritis, right knee; K21.00 Gastro-esophageal reflux disease with esophagitis, without bleeding
CPT/HCPCS: 99213; G0463

== ENCOUNTER 2023-11-16 02:06 | Day surgery (SDC) | payer OTHER, SELFPAY ==
[2023-10-22 13:29] VITALS: BMI 28.8
[2023-11-16 06:16] VITALS: BP 142/79; PULSE 63; RESP 18; TEMP 35.8; O2SAT 99; BMI 27.5
[2023-11-16] MEDS: LACTATED RINGERS 1,000 ML 150 ML IV CONT (06:36)
--- NOTE | 2023-11-16 06:45 | WPDANESEPPF ---
Anes - Initial Pre Proc Eval Procedure: Operation Date: 11/16/23 07:30 Proposed Procedures p Screening Colonoscopy - James Hoff MD Date/Time: 11/16/23 06:45 Surgeon: James Hoff MD Pre Op Diagnosis: hx of colonic polyps Patient Data Age: 53 Gender: M Height: 1.78 m Weight: 87 kg Last Vital Signs Temp 35.8 C L 11/16/23 06:16 Pulse 63 11/16/23 06:16 Resp 18 11/16/23 06:16 BP 142/79 H 11/16/23 06:16 Pulse Ox 99 11/16/23 06:16 O2 Del Method Room Air 11/16/23 06:16 Allergies Allergy/AdvReac Type Severity Reaction Status Date / Time Penicillins Allergy Severe Anaphylaxis Verified 11/16/23 06:24 venom-wasp Allergy Intermediate Swelling Verified 11/16/23 06:24 Home Medications Medication Instructions Recorded Confirmed Type pantoprazole 40 mg tablet,delayed 40 mg PO QAM #90 tabs 02/17/23 11/16/23 Rx release topiramate 50 mg tablet See Rx Instructions .Route 05/12/23 11/16/23 Rx .COMPLEX #180 tabs losartan 50 mg-hydrochlorothiazide 1 tablet PO DAILY #90 tabs 05/18/23 11/16/23 Rx 12.5 mg tablet rizatriptan 10 mg tablet See Rx Instructions PO .COMPLEX 08/05/23 11/16/23 Rx #30 tabs fenofibrate nanocrystallized 48 mg See Rx Instructions .Route 08/24/23 11/16/23 Rx tablet .COMPLEX #90 tabs Patient hx anesthesia problems: none Family hx anesthesia problems: none Results Review: All pre-operative results and documents have been reviewed as part of the pre-operative evaluation. [facility] Past Medical History Medical History Acute blood loss anemia Sumaya esophagitis Chest pain Conductive hearing loss in right ear Degenerative joint disease Diverticulitis large intestine Elevated blood pressure reading in office without diagnosis of hypertension Encounter for other specified surgical aftercare Erosive gastritis Gastroesophageal reflux disease GERD with esophagitis Hx of adenomatous colonic polyps Inguinal hernia Left groin pain Left inguinal hernia Lumbar disc disease Migraine Migraine Near syncope Obstructive sleep apnea treated with BiPAP (11/2019) Overweight (BMI 25.0-29.9) Post-polypectomy bleeding Pre-procedural laboratory examination Rectal bleeding Rectal hemorrhage Right knee DJD Sinusitis Unspecified abdominal pain Vomiting Surgical History Surgical History H/O inguinal hernia repair robotic assisted left inguinal hernia repair with mesh 07/25/2021 History of arthroscopy of right knee (03/2019) History of colonoscopy with polypectomy (10/10/20) History of right inguinal hernia repair Family History Family History Father Lung cancer Mother , Old age per Rehan Hypertension Atrial fibrillation Social History Social History Social History: Surrogate decision maker: Ashwini Arteaga, significant other. Code status: Full code. Smoking packs per day: 1.5 Smoking cigarettes per day: 30.0 Years smoked: 13 Smoking pack-years: 19.50 Smoking status: Former smoker Tobacco type: cigarettes Second hand tobacco smoke exposure: Yes Smoking end date: 02/10/00 Alcohol intake: current Drinks per week: 14 Substance use: current Substance use type: marijuana Other substance usage details: vape marijuana before bed Last use: 10/08/20 Do You Feel Safe in your Home?: Yes Lack of Transportation: No Lack of Food: Never True Current Housing: I Have Housing Concerned About Future Housing: No Difficulty Paying Gas/Electric Bills: No Difficulty Paying for Meds: No Currently Unemployed: No Education: High School Diploma/GED Difficulty w/ Childcare or Family Care: No Living arrangements: with family Occupation/Education: occupation Additional occupation/education comment
--- NOTE | 2023-11-16 07:27 | PM.IMHP ---
H&P: HPI History of Present Illness Date/Time: 11/16/23 07:27 Chief Complaint: The patient has a history of colonic polyps. He is here for his surveillance colonoscopy. There are no complaints. Review of Systems Review of Systems: All systems reviewed & are unremarkable except as noted in HPI and below PMFSH Past Medical History Medical History Acute blood loss anemia Sumaya esophagitis Chest pain Conductive hearing loss in right ear Degenerative joint disease Diverticulitis large intestine Elevated blood pressure reading in office without diagnosis of hypertension Encounter for other specified surgical aftercare Erosive gastritis Gastroesophageal reflux disease GERD with esophagitis Hx of adenomatous colonic polyps Inguinal hernia Left groin pain Left inguinal hernia Lumbar disc disease Migraine Migraine Near syncope Obstructive sleep apnea treated with BiPAP (11/2019) Overweight (BMI 25.0-29.9) Post-polypectomy bleeding Pre-procedural laboratory examination Rectal bleeding Rectal hemorrhage Right knee DJD Sinusitis Unspecified abdominal pain Vomiting Surgical History Surgical History H/O inguinal hernia repair robotic assisted left inguinal hernia repair with mesh 07/25/2021 History of arthroscopy of right knee (03/2019) History of colonoscopy with polypectomy (10/10/20) History of right inguinal hernia repair Family History Family History Father Lung cancer Mother , Old age per Rehan Hypertension Atrial fibrillation Social History Social History Social History: Surrogate decision maker: Ashwini Arteaga, significant other. Code status: Full code. Smoking packs per day: 1.5 Smoking cigarettes per day: 30.0 Years smoked: 13 Smoking pack-years: 19.50 Smoking status: Former smoker Tobacco type: cigarettes Second hand tobacco smoke exposure: Yes Smoking end date: 02/10/00 Alcohol intake: current Drinks per week: 14 Substance use: current Substance use type: marijuana Other substance usage details: vape marijuana before bed Last use: 10/08/20 Do You Feel Safe in your Home?: Yes Lack of Transportation: No Lack of Food: Never True Current Housing: I Have Housing Concerned About Future Housing: No Difficulty Paying Gas/Electric Bills: No Difficulty Paying for Meds: No Currently Unemployed: No Education: High School Diploma/GED Difficulty w/ Childcare or Family Care: No Living arrangements: with family Occupation/Education: occupation Additional occupation/education comments: Works for [employer]. Gender identity (if verbalized by the patient): Male Spiritual care concerns: No Meds Home Medications and Allergies Home Medications Medication Instructions Recorded Confirmed Type pantoprazole 40 mg tablet,delayed 40 mg PO QAM #90 tabs 02/17/23 11/16/23 Rx release topiramate 50 mg tablet See Rx Instructions .Route 05/12/23 11/16/23 Rx .COMPLEX #180 tabs losartan 50 mg-hydrochlorothiazide 1 tablet PO DAILY #90 tabs 05/18/23 11/16/23 Rx 12.5 mg tablet rizatriptan 10 mg tablet See Rx Instructions PO .COMPLEX 08/05/23 11/16/23 Rx #30 tabs fenofibrate nanocrystallized 48 mg See Rx Instructions .Route 08/24/23 11/16/23 Rx tablet .COMPLEX #90 tabs Allergies Allergy/AdvReac Type Severity Reaction Status Date / Time Penicillins Allergy Severe Anaphylaxis Verified 11/16/23 06:24 venom-wasp Allergy Intermediate Swelling Verified 11/16/23 06:24 Vital Signs Vital Signs - 24 hr 11/16/23 06:16 Temperature 96.5 F L Pulse Rate 63 Respiratory Rate 18 Blood Pressure 142/79 H Pulse Oximetry 99 Oxygen Delivery Room Air Assessment and Plan Assessment and plan (1) History of colonic polyps:
[2023-11-16 07:54] VITALS: BP 105/64; PULSE 64; RESP 18; O2SAT 100
--- NOTE | 2023-11-16 07:56 | PM.IMHP ---
H&P: HPI History of Present Illness Date/Time: 11/16/23 07:56 Chief Complaint: The patient is here for surveillance colonoscopy. He has a history of colonic polyps. Review of Systems Review of Systems: All systems reviewed & are unremarkable except as noted in HPI and below PMFSH Past Medical History Medical History Acute blood loss anemia Sumaya esophagitis Chest pain Conductive hearing loss in right ear Degenerative joint disease Diverticulitis large intestine Elevated blood pressure reading in office without diagnosis of hypertension Encounter for other specified surgical aftercare Erosive gastritis Gastroesophageal reflux disease GERD with esophagitis Hx of adenomatous colonic polyps Inguinal hernia Left groin pain Left inguinal hernia Lumbar disc disease Migraine Migraine Near syncope Obstructive sleep apnea treated with BiPAP (11/2019) Overweight (BMI 25.0-29.9) Post-polypectomy bleeding Pre-procedural laboratory examination Rectal bleeding Rectal hemorrhage Right knee DJD Sinusitis Unspecified abdominal pain Vomiting Surgical History Surgical History H/O inguinal hernia repair robotic assisted left inguinal hernia repair with mesh 07/25/2021 History of arthroscopy of right knee (03/2019) History of colonoscopy with polypectomy (10/10/20) History of right inguinal hernia repair Family History Family History Father Lung cancer Mother , Old age per Rehan Hypertension Atrial fibrillation Social History Social History Social History: Surrogate decision maker: Ashwini Arteaga, significant other. Code status: Full code. Smoking packs per day: 1.5 Smoking cigarettes per day: 30.0 Years smoked: 13 Smoking pack-years: 19.50 Smoking status: Former smoker Tobacco type: cigarettes Second hand tobacco smoke exposure: Yes Smoking end date: 02/10/00 Alcohol intake: current Drinks per week: 14 Substance use: current Substance use type: marijuana Other substance usage details: vape marijuana before bed Last use: 10/08/20 Do You Feel Safe in your Home?: Yes Lack of Transportation: No Lack of Food: Never True Current Housing: I Have Housing Concerned About Future Housing: No Difficulty Paying Gas/Electric Bills: No Difficulty Paying for Meds: No Currently Unemployed: No Education: High School Diploma/GED Difficulty w/ Childcare or Family Care: No Living arrangements: with family Occupation/Education: occupation Additional occupation/education comments: Works for [employer]. Gender identity (if verbalized by the patient): Male Spiritual care concerns: No Meds Home Medications and Allergies Home Medications Medication Instructions Recorded Confirmed Type pantoprazole 40 mg tablet,delayed 40 mg PO QAM #90 tabs 02/17/23 11/16/23 Rx release topiramate 50 mg tablet See Rx Instructions .Route 05/12/23 11/16/23 Rx .COMPLEX #180 tabs losartan 50 mg-hydrochlorothiazide 1 tablet PO DAILY #90 tabs 05/18/23 11/16/23 Rx 12.5 mg tablet rizatriptan 10 mg tablet See Rx Instructions PO .COMPLEX 08/05/23 11/16/23 Rx #30 tabs fenofibrate nanocrystallized 48 mg See Rx Instructions .Route 08/24/23 11/16/23 Rx tablet .COMPLEX #90 tabs Allergies Allergy/AdvReac Type Severity Reaction Status Date / Time Penicillins Allergy Severe Anaphylaxis Verified 11/16/23 06:24 venom-wasp Allergy Intermediate Swelling Verified 11/16/23 06:24 Vital Signs Vital Signs - 24 hr 11/16/23 06:16 Temperature 96.5 F L Pulse Rate 63 Respiratory Rate 18 Blood Pressure 142/79 H Pulse Oximetry 99 Oxygen Delivery Room Air Assessment and Plan Assessment and plan (1) History of colonic polyps: Code(s): Z86.0100
[2023-11-16 08:04] VITALS: BP 110/55; PULSE 62; RESP 18; O2SAT 100
[2023-11-16 08:31] VITALS: BP 123/74; PULSE 64; RESP 18; O2SAT 96
== END 2023-11-16 08:33 | disposition home or self-care (01) ==
PROVIDERS: PCP Emergency Medicine; Visit Provider Internal Medicine Gastroenterology
PROC: 0DJD8ZZ Inspection of Lower Intestinal Tract, Via Natural or Artificial Opening Endoscopic (ICD-10-PCS; CPT 45378; principal; 2023-11-16 07:30)
DX: Z12.11 Encounter for screening for malignant neoplasm of colon (principal); D12.5 Benign neoplasm of sigmoid colon; K57.30 Diverticulosis of large intestine without perforation or abscess without bleeding; D64.9 Anemia, unspecified; B37.81 Candidal esophagitis; R03.0 Elevated blood-pressure reading, without diagnosis of hypertension; K21.9 Gastro-esophageal reflux disease without esophagitis; M51.86 Other intervertebral disc disorders, lumbar region; G47.33 Obstructive sleep apnea (adult) (pediatric); F12.90 Cannabis use, unspecified, uncomplicated; Z99.89 Dependence on other enabling machines and devices; Z98.890 Other specified postprocedural states; Z86.0100 Personal history of colon polyps, unspecified; Z87.891 Personal history of nicotine dependence; Z80.1 Family history of malignant neoplasm of trachea, bronchus and lung; Z82.49 Family history of ischemic heart disease and other diseases of the circulatory system
CPT/HCPCS: 45385; 88305; J2003; J2704; J7120

== ENCOUNTER 2023-12-08 13:59 | Outpatient (CLI) | payer OTHER, SELFPAY ==
--- NOTE | ~2023-12-08 | US_ITS ---
EXAMINATION: US renal BI DATE: 12/08/2023 14:41 INDICATION: Chronic kidney disease stage IIIa. TECHNIQUE: Multiple ultrasound grayscale images of the kidneys were obtained. COMPARISON: CT abdomen and pelvis 02/04/2022 FINDINGS: The right kidney measures 11.2 x 5.4 x 5.6 cm. The left kidney measures 10.9 x 5.2 x 5.3 cm. The kidn eys demonstrate normal parenchymal echogenicity. There is an 18 mm cyst in right kidney. There is no hydronephrosis. The bladder is normal. IMPRESSION: 1. Normal kidney sizes. No hydronephrosis. Reviewed, dictated and finalized at location B.
== END 2023-12-08 14:00 | disposition home or self-care (01) ==
LOC: ANHIMG 14:01
PROVIDERS: PCP Emergency Medicine; Visit Provider Internal Medicine Nephrology
DX: I12.9 Hypertensive chronic kidney disease with stage 1 through stage 4 chronic kidney disease, or unspecified chronic kidney disease (principal); N18.31 Chronic kidney disease, stage 3a
CPT/HCPCS: 76775

== ENCOUNTER 2023-12-30 10:17 | Outpatient (CLI) | payer OTHER, SELFPAY ==
--- NOTE | ~2023-12-30 | XR_ITS ---
Clinical Indication: Chills PA and lateral views of the chest: Comparison: 03/05/2023 Findings: The lungs are clear, without evidence of focal consolidation or pleural effusion. Cardiome diastinal silhouette is within normal limits. Bones and soft tissues are unremarkable. Impression: Normal chest. Reviewed, dictated and finalized at [facility]. [employer]TE[employer]EL[employer] Impression: Normal chest.
== END 2023-12-30 10:18 | disposition home or self-care (01) ==
LOC: ANHIMG 10:19
PROVIDERS: PCP Emergency Medicine; Visit Provider Emergency Medicine
DX: R68.83 Chills (without fever) (principal); R09.89 Other specified symptoms and signs involving the circulatory and respiratory systems
CPT/HCPCS: 71046

== ENCOUNTER 2024-01-20 09:07 | Emergency (ER) | payer SELFPAY ==
[2024-01-20 09:16] VITALS: BP 115/72; PULSE 67; RESP 19; TEMP 36.3; O2SAT 100
--- NOTE | 2024-01-20 10:08 | ED_ITS ---
HPI - Ear Problem General Stated complaint: right ear painful Time Seen by Provider: 01/20/24 10:09 Source: patient and RN notes reviewed Mode of arrival: ambulatory Limitations: no limitations History of Present Illness HPI Narrative: 53-year-old male presents with concern for right earache. He reports he has a tympanostomy tube in that ear that was placed about 2 and half months ago. Reports over the last week he has sharp pain in that ear whenever he sneezes, yawns, coughs. He denies any drainage from the ear. He denies fever. He denies nasal congestion or rhinorrhea. MD Complaint: ear pain Related Data Home Medications ?Medication ?Instructions ?Recorded ?Confirmed ?Last Taken ?Type topiramate 50 mg capsule,extended 50 mg PO DAILY 01/06/24 01/20/24 Unknown History release 24 hr Allergies Allergy/AdvReac Type Severity Reaction Status Date / Time Penicillins Allergy Severe Anaphylaxis Verified 01/20/24 10:14 venom-wasp Allergy Intermediate Swelling Verified 01/20/24 10:14 Review of Systems Review of Systems: CONSTITUTIONAL: Denies malaise, chills, sweats, or fever. EYES: Denies visual changes, redness, or discharge. ENT: Denies rhinorrhea, congestion, sinus pain, and sore throat. Reports right ear pain CARDIOVASCULAR: Denies chest pain, palpitations, or edema. RESPIRATORY: Denies cough. Denies dyspnea. GASTROINTESTINAL: Denies abdominal pain, nausea, vomiting, diarrhea SKIN: Denies rash or itching. MUSCULOSKELETAL: Denies myalgia. NEUROLOGIC: Denies headache. All systems reviewed & are unremarkable except as noted in HPI and below PMFSH Past Medical History Medical History Acute blood loss anemia [place] esophagitis Chest pain Conductive hearing loss in right ear Degenerative joint disease Diverticulitis large intestine Elevated blood pressure reading in office without diagnosis of hypertension Encounter for other specified surgical aftercare Erosive gastritis Gastroesophageal reflux disease GERD with esophagitis Hx of adenomatous colonic polyps Inguinal hernia Left groin pain Left inguinal hernia Lumbar disc disease Migraine Migraine Near syncope Obstructive sleep apnea treated with BiPAP (11/2019) Overweight (BMI 25.0-29.9) Post-polypectomy bleeding Pre-procedural laboratory examination Rectal bleeding Rectal hemorrhage Right knee DJD Sinusitis Unspecified abdominal pain Vomiting Surgical History Surgical History H/O inguinal hernia repair robotic assisted left inguinal hernia repair with mesh 07/25/2021 History of arthroscopy of right knee (03/2019) History of colonoscopy with polypectomy (10/10/20) History of right inguinal hernia repair Family History Family History Father Lung cancer Mother , Old age per Rehan Hypertension Atrial fibrillation Social History Social History Social History: Surrogate decision maker: Ashwini Arteaga, significant other. Code status: Full code. Smoking packs per day: 1.5 Smoking cigarettes per day: 30.0 Years smoked: 13 Smoking pack-years: 19.50 Smoking status: Former smoker Tobacco type: cigarettes Second hand tobacco smoke exposure: Yes Smoking end date: 02/10/00 Alcohol intake: current Drinks per week: 14 Substance use: current Substance use type: marijuana Other substance usage details: vape marijuana before bed Last use: 10/08/20 Do You Feel Safe in your Home?: Yes Lack of Transportation: No Lack of Food: Never True Current Housing: I Have Housing Concerned About Future Housing: No Difficulty Paying Gas/Electric Bills: No Difficulty Paying for Meds: No Currently Unemployed: No Education: High School Diploma/GED Difficulty w/ Childcare or Family Care: No Living arrangements: with family Occupation/Education: occupation Additional occupation/education comments: Works for [employer]. Gender identity (if verbalized by the patient): Male Spiritual care concerns: No Comments At time of signature, agree with nursing past medical, surgical, social and family history. There is no relevant family history pertinent to the presenting complaint Exam Narrative: GENERAL: Well-appearing, well-nourished, and in no acute distress. HEAD: Normocephalic EYES: PERRLA, conjunctivae clear ENT: Nares clear. Mucous membranes moist. Left TM pearly garcia with dull light reflex, right TM pearly garcia, at tympanostomy tube intact and patent without drainage noted; no tragal tenderness. Oropharynx not erythematous without lesions. Tonsils not enlarged and without exudate, no drooling, no hoarseness, no trismus, uvula midline. NECK: Supple. No lymphadenopathy CHEST: Clear to auscultation, breath sounds equal. No wheezing, rhonchi, rales, or stridor. No respiratory distress, speaks in full sentences. HEART: Regular rate and rhythm. No murmur heard. SKIN: Warm, dry, no rash. NEURO: Alert and oriented x3. PSYCH: Normal mood and affect Course Course Emergency Course: Patient is aware of diagnosis, understands and agrees to treatment plan. Anticipatory guidance given. Patient agrees to follow-up as directed and is aware of reasons to seek care at the emergency department. Portions of this record may have been created with voice recognition software Level of Care: [facility] Visit Vital Signs Vital signs: Vital Signs Temperature 97.3 F L 01/20/24 09:16 Pulse Rate 67 01/20/24 09:16 Respiratory Rate 19 01/20/24 09:16 Blood Pressure 115/72 01/20/24 09:16 Pulse Oximetry 100 01/20/24 09:16 Oxygen Delivery Room Air 01/20/24 09:16 Temperature 97.3 F L 01/20/24 09:16 Pulse Rate 67 01/20/24 09:16 Respiratory Rate 19 01/20/24 09:16 Blood Pressure 115/72 01/20/24 09:16 Pulse Oximetry 100 01/20/24 09:16 Oxygen Delivery Room Air 01/20/24 09:16 Reviewed. Medical Decision Making MDM Narrative Medical decision making narrative: I evaluated this in the [facility]. History is obtained from patient who is an independent historian and physical exam was performed.? Available medical records were reviewed. ? Exam findings and relevant testing show no acute concerns or changes; patient is non-toxic appearing and is in no distress. Differential diagnosis considered: Sandhu virus, strep pharyngitis, allergic rhinitis, upper respiratory tract infection, sinusitis, rhinosinusitis, nasopharyngitis. viral pharyngitis, otitis media, otitis externa, otitis effusion, cerumen impaction, foreign body. Exam findings show no acute concerns or changes; patient is non-toxic appearing and is in no distress. Patient is appropriate for outpatient treatment and follow-up. ? Differential diagnosis and treatment plan were discussed with the patient. Patient agrees with discussion and after shared medical decision making agrees with plan of care. All questions were answered to the patient's satisfaction. Patient is appropriate for outpatient treatment and follow-up. Vital Signs Vital Signs: Vital Signs Temperature 97.3 F L 01/20/24 09:16 Pulse Rate 67 01/20/24 09:16 Respiratory Rate 19 01/20/24 09:16 Blood Pressure 115/72 01/20/24 09:16 Pulse Oximetry 100 01/20/24 09:16 Oxygen Delivery Room Air 01/20/24 09:16 Temperature 97.3 F L 01/20/24 09:16 Pulse Rate 67 01/20/24 09:16 Respiratory Rate 19 01/20/24 09:16 Blood Pressure 115/72 01/20/24 09:16 Pulse Oximetry 100 01/20/24 09:16 Oxygen Delivery Room Air 01/20/24 09:16 Critical Care Time Critical Care Time Critical Care Time: No Discharge Plan Discharge Clinical Impression: Ear ache Patient Disposition: Home, Self-Care Condition: Stable Instructions: How to Use Ear Drops (ED) Additional Instructions: 1) Please follow-up with your primary care doctor or ENT in the next 1-2 days. 2) If you have any worsening of symptoms or any other urgent concerns please go to the ER. 3) Please take medications as prescribed and continue taking your home medications as usual. 4) Please read and follow information included in discharge instructions. Patient Language: Maori Prescriptions: New pseudoephedrine HCl [12 Hour Decongestant] 120 mg tablet extended release 120 mg PO Q12H PRN (Reason: nasal congestion) Qty: 20 0RF ofloxacin 0.3 % drops 5 drp RIGHT EAR DAILY 7 Days Qty: 10 0RF No Action losartan-hydrochlorothiazide 50-12.5 mg tablet 1 tablet PO DAILY Qty: 90 2RF topiramate 50 mg capsule,extended release 24hr 50 mg PO DAILY pantoprazole 40 mg tablet,delayed release (DR/EC) 40 mg PO QAM Qty: 90 3RF rizatriptan 10 mg tablet See Rx Instructions PO .COMPLEX Qty: 30 0RF Rx Instructions: take 1 tab at onset of headache; if no relief may repeat 1 tab after at least 2 hrs; max = 3 tabs/24 hr PO fenofibrate nanocrystallized 48 mg tablet See Rx Instructions .ROUTE .COMPLEX Qty: 90 2RF Dose Instruction: TAKE 1 TABLET BY MOUTH DAILY Rx Instructions: TAKE 1 TABLET BY MOUTH DAILY Follow-up/Referrals: Fredo Marin MD [Primary Care Provider] - Time of Disposition: 10:18
== END 2024-01-20 10:20 | disposition home or self-care (01) ==
PROVIDERS: Emergency Provider Nurse Practitioner; PCP Emergency Medicine
DX: H92.01 Otalgia, right ear (principal); Z87.891 Personal history of nicotine dependence; K21.00 Gastro-esophageal reflux disease with esophagitis, without bleeding; M17.11 Unilateral primary osteoarthritis, right knee; Z96.22 Myringotomy tube(s) status
CPT/HCPCS: 99213; G0463

== ENCOUNTER 2024-11-18 06:52 | Outpatient (CLI) | payer OTHER, MEDICAID, SELFPAY ==
--- NOTE | ~2024-11-18 | XR_ITS ---
EXAMINATION: XR chest 2V, 11/18/2024 6:55 CDT HISTORY: R06.2 - Wheezing COMPARISON: No comparisons available. Technique: 2 views obtained. Findings: The lungs are clear, no effusion. No pneumothorax. Heart is normal size. Mediastinal and hilar contours are within normal limits. Bony thorax no acute abnormality. Impression: No acute cardiopulmonary abnormality. Reviewed, dictated and finalized at location P. Impression: No acute cardiopulmonary abnormality.
--- NOTE | ~2024-11-18 | NM_ITS ---
EXAMINATION: NM natacha stress w perfusion DATE: 11/18/2024 10:39 INDICATION: Palpitations TECHNIQUE: Rest images were obtained following intravenous administration of 11.7 mCi Tc99m tetrofosmin (Myoview). The patient was infused intravenously with Lexiscan (Regadenoson). Then, 34.6 mCi Tc99m tetrofosmin (Myoview) was administered intravenously, and stress images were obtained. Data was daysi nstructed into short axis and horizontal and vertical long axis SPECT images. Gated SPECT images were also obtained. COMPARISON: None. FINDINGS: There is no definite reversible or fixed perfusion abnormality to suggest ischemia or infarction. There is normal left ventricular chamber size, wall motion and ejection fraction. Left ventricular ejection fraction measures 59%. IMPRESSION: 1. Normal myocardial perfusion at rest and during stress. 2. Left ventricular ejection fraction measuring 59%. Reviewed, dictated and finalized at location A.
--- NOTE | 2024-11-18 08:47 | EST_ITS ---
Patient Info Name: Rehan Reilly Age: 54 years : 1970 Gender: Male Ht: 70 in Wt: 204 lbs BSA: 2.16 m2 HR: 47 bpm BP: 136 / 76 mmHg Exam Date: 11/18/2024 8:47 AM Patient Status: O Admit Date: 11/18/2024 Exam Type: CA stress natacha w NM A regadenoson stress test was performed. Staff Referring Physician: Fredo Marin MD Attending Provider: Fredo Marin MD Exercise Technologist: Naomi Flores Exercise Physician: Wilver Gillette DO Summary 1. 1. Negative lexiscan stress test for ischemic ST changes by ECG criteria. 2. 2. Stable hemodynamics throughout the test. 3. 3. Nuclear scan to follow and will be reported separately. Please correlate with it. 4. 4. Patient informed of the above results. Protocol: Lexiscan Stress ECG Details Stage: REST Duration (min): 2 min : 13 sec HR (bpm): 47 SBP (mmHg): 136 DBP (mmHg): 76 Stage: REST Duration (min): 3 min : 30 sec HR (bpm): 54 SBP (mmHg): 136 DBP (mmHg): 76 Stage: REST Duration (min): 14 min : 33 sec HR (bpm): 43 SBP (mmHg): 136 DBP (mmHg): 76 Stage: STAGE 1 Duration (min): 1 min : 0 sec HR (bpm): 70 SBP (mmHg): 136 DBP (mmHg): 76 Stage: RECOVERY Duration (min): 1 min : 0 sec HR (bpm): 81 SBP (mmHg): 136 DBP (mmHg): 76 Stage: RECOVERY Duration (min): 2 min : 0 sec HR (bpm): 78 SBP (mmHg): 144 DBP (mmHg): 85 Stage: RECOVERY Duration (min): 3 min : 0 sec HR (bpm): 79 SBP (mmHg): 131 DBP (mmHg): 80 Stage: RECOVERY Duration (min): 3 min : 26 sec HR (bpm): 78 SBP (mmHg): 131 DBP (mmHg): 80 Rest HR: 43 bpm Peak HR: 83 bpm Rest Sys BP: 136 mmHg Peak Sys BP: 144 mmHg Max Pred HR: 168 bpm % Max Pred HR: 49 % Target HR: 143 bpm Max RPP: 11,952 bpm*mmHg Termination Reason: Completed protocol Cardiac Symptoms: None Total Time: 1 min : 0 sec Rest Persaud BP: 76 mmHg Peak Persaud BP: 85 mmHg Total Dose: 0.4 mg Resting ECG Sinus bradycardia. Stress ECG No ST changes. Arrhythmias None. Report Signatures
== END 2024-11-18 06:53 | disposition home or self-care (01) ==
PROVIDERS: PCP Emergency Medicine; Visit Provider Emergency Medicine
DX: R06.2 Wheezing (principal); R00.2 Palpitations
CPT/HCPCS: 71046; 78452; 93017; A9502; J2785

== ENCOUNTER 2025-01-11 07:09 | Emergency (ER) | payer OTHER, MEDICAID, SELFPAY ==
--- NOTE | ~2025-01-11 | CT_ITS ---
EXAMINATION: CT abdomen pelvis w con DATE: 01/11/2025 10:36 INDICATION: Periumbilical pain, nausea and vomiting TECHNIQUE: Computed tomography (CT) of the abdomen and pelvis was performed with 100 mL Omnipaque-350 intravenous contrast. Automated exposure control and iterative reconstruction technique were employed. The dose-length product was 571.52 mGy-cm. COMPARISON: 02/04/2022 and 03/05/2023 FINDINGS: Mild dependent atelectasis in bilateral lower lobes and mild peripheral atelectasis at the anterior lingula. Interval decrease in size of a previously 1 cm, currently 7 mm nodule at the posterior basilar left lower lobe which likely infectious/inflammatory in etiology. Heart size is normal. No pericardial or pleural effusion. There are couple subcentimeter low-attenuation hepatic cysts. Gallbladder, spleen, pancreas, bilateral adrenal glands are normal. 1.9 cm cyst at the lower pole the right kidney with a few additional tiny bilateral subcentimeter renal cysts. Moderate diverticulosis with sigmoid and descending colon predominance and without adjacent from trace stranding to suggest diverticulitis. Small bowel and appendix are normal. There is minimal stranding along the periphery of the otherwise normal-appearing bladder which raises some suspicion for cystitis. Correlate with urinalysis. Mild prostatomegaly measuring 3.8 x 3.3 cm. Bilateral small fat-containing inguinal hernias. No free intra peritoneal gas or fluid. No pathologically enlarged abdominal or pelvic lymphadenopathy. Moderate thoracic and mild lumbar spondylosis with chronic likely physiologic mild anterior wedging at T10-T12. IMPRESSION: 1. Subtle stranding about the bladder raising suspicion for cystitis. Correlate with urinalysis. No other acute intra-abdominal/pelvic process. 2. Diverticulosis. Reviewed, dictated and finalized at location A. OMIC DEVELOPMENT MANAGER
--- OUTSIDE RECORDS SUMMARY | 2025-01-11 07:11 | XMS_ITS | Clinical Summary ---
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 Gender Identity Not on file Sexual Orientation Not on file Last Filed Vital Signs Vital Sign Reading Time Taken Comments Blood Pressure 120/82 09/09/2012 7:04 AM CDT Pulse 62 09/09/2012 7:04 AM CDT Temperature 36.6 C (97.8 F) 09/09/2012 7:04 AM CDT Respiratory Rate - - Oxygen Saturation 99% 09/09/2012 7:04 AM CDT Inhaled Oxygen Concentration - - Weight 86.2 kg (190 lb) 09/09/2012 7:04 AM CDT Height 154.9 cm (5' 1) 09/09/2012 7:04 AM CDT Body Mass Index 35.9 09/09/2012 7:04 AM CDT Plan of Treatment Not on file Insurance [facility] [place] [address] [address] IDPA Care Teams Transitional Studies Instructor Relationship Specialty Start Date End Date Fredo Marin MD [address] [place] [address] PCP - General Emergency Medicine 03/22/19
--- NOTE | 2025-01-11 07:14 | ECG_ITS ---
Test Date: 2025-01-11 07:47:54 Measurements Intervals [place] Rate: 53 P: 78 GA: 159 QRS: 47 QRSD: 108 T: 34 QT: 424 QTc: 401 Interpretive Statements SINUS BRADYCARDIA BASELINE ARTIFACT- I, II, III, AVR, AVL, AVF, V1 BORDERLINE ECG No previous ECG available for comparison Electronically Signed On 01-11-2025 10:44:45 ARCHITECTURAL EXAMINER by Wilver Gillette D.O.
[2025-01-11 07:25] VITALS: BP 136/78; PULSE 58; RESP 16; TEMP 36.9; O2SAT 99
[2025-01-11] MEDS: FAMOTIDINE 20 MG/2 ML VIAL IV PUSH (07:54)
[2025-01-11 08:03] LABS: Hematocrit 39.3 % (42.0-52.0); Hemoglobin 13.3 g/dL (14.0-18.0); Immature Granulocyte Percent A 0.4 % (0-0.5); Lymphocytes Absolute Auto 2.35 K/mm3 (0.9-3.2); Mean Corpuscular HGB Conc 33.8 g/dl (32-36); Mean Corpuscular Hemoglobin 27.8 pg (26-34); Mean Corpuscular Volume 82.0 fl (80-100); Nucleated Red Blood Cells Absolute Auto 0.000 K/mm3 (0.0-0.012); Nucleated Red Blood Cells Perc 0.0 % (0.0-0.2); Platelet Count Result 271 k/mm3 (150-375); Red Blood Count 4.79 M/mm3 (4.6-6.20); White Blood Count 5.5 K/mm3 (4.5-10.0)
[2025-01-11] MEDS: SODIUM CHLORIDE 0.9% IV 100 ML 999 ML (08:03)
[2025-01-11 08:15] LABS: Alanine Aminotransferase 28 U/L (6-50); Albumin Level 4.3 g/dL (3.5-5.1); Alkaline Phosphatase 56 U/L (38-126); Anion Gap 5 mmol/L (4-12); Aspartate Amino Transferase 38 U/L (17-59); Bilirubin,Total 0.5 mg/dL (0.2-1.3); Blood Urea Nitrogen 13 mg/dL (9-20); Calcium 9.8 mg/dL (8.4-10.2); Carbon Dioxide 27 mmol/L (22-30); Chloride 108 mmol/L (98-107); Estimated Glomerular Filt Rate 49; Glucose 96 mg/dL (65-110); Lipase 168 U/L (23-300); Potassium 4.1 mmol/L (3.4-5.0); Sodium 140 mmol/L (137-145); Total Protein 7.3 g/dL (6.3-8.2)
[2025-01-11] MEDS: PANTOPRAZOLE SODIUM IV 40 MG VIAL IV PUSH (08:15)
--- OUTSIDE RECORDS SUMMARY | 2025-01-11 08:17 | XMS_ITS | Clinical Summary ---
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
--- OUTSIDE RECORDS SUMMARY | 2025-01-11 08:17 | XMS_ITS | Clinical Summary ---
Author Organization [facility] Address [address] [place] [address] Care Team Providers Care Top Icer Name Role Phone Fredo Marin MD Primary Care Provider + [phone] Allergies Active Allergy Reactions Criticality Noted Date Comments Penicillins Anaphylaxis High 01/05/2018 Medications methylPREDNISolone, XANDER, 4 MG tablet 6 TABLETS ON DAY ONE, 5 TABLETS DAY TWO, 4 TABLETS DAY THREE, 3 TABLETS DAY FOUR, 2 TABLETS DAY FIVE, AND 1 TABLET DAY SIX 1 each 9 Active prochlorperazine (COMPAZINE) 10 MG tablet Take 1 tablet (10 mg total) by mouth every 6 (six) hours as needed. 20 tablet 3 Active naproxen (NAPROSYN) 500 MG tablet Take 1 tablet (500 mg total) by mouth 2 (two) times daily with meals. 60 tablet 3 Active butalbital-acetamin ophen-caffeine (FIORICET) 50-300-40 MG capsule Take 1 capsule by mouth every 4 (four) hours as needed for Pain. 30 capsule 4 Active methylPREDNISolone, XANDER, (MEDROL DOSEPAK) 4 MG tablet 6 TABLETS ON DAY ONE, 5 TABLETS DAY TWO, 4 TABLETS DAY THREE, 3 TABLETS DAY FOUR, 2 TABLETS DAY FIVE, AND 1 TABLET DAY SIX 1 each 4 Active pseudoephedrine ER (SUDAFED) 120 MG 12 hr tablet Take 1 tablet (120 mg total) by mouth every 12 (twelve) hours. 28 tablet 4 Active fenofibrate (TRICOR) 48 MG tablet Take 1 tablet (48 mg total) by mouth daily. 4 Active pantoprazole EC (PROTONIX) 40 MG tablet Take 1 tablet (40 mg total) by mouth every morning. 4 Active methocarbamol (ROBAXIN) 750 MG Tab Take 2 tablets (1,500 mg total) by mouth 3 (three) times daily. 4 Active ondansetron (ZOFRAN-ODT) 4 MG disintegrating tablet Take 1 tablet (4 mg total) by mouth every 8 (eight) hours as needed for Nausea. 20 tablet 4 Active Active Problems Problem Noted Date Diagnosed Date Chest pain 01/05/2018 Family History Medical History Relation Comments Heart Attack Brother mid-40s Heart Attack Mother Heart Attack Sister mid-40s Relation Status Comments Brother Mother Sister Social History Tobacco Use Types Packs/Day Years Used Date Smoking Tobacco: Former Smokeless Tobacco: Never Tobacco Cessation:Counseling Given: Not Answered Comments:Quit ~20 yrs ago Alcohol Use Standard Drinks/Week Comments Yes 0 (1 standard drink = 0.6 oz pur e alcohol) MAYBE A SIX PACK AUDIT-C Answer Date Recorded Frequency of Alcohol Consumption 2-3 times a wee k 01/05/2018 Average Number of Drinks 1 or 2 018 Frequency of Binge Drinking Not on file 12/11 Sex and Gender Information Value Date Recorded Sex Assigned at Not on file 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 Gender Identity Not on file Sexual Orientation Not on file Last Filed Vital Signs Vital Sign Reading Time Taken Comments Blood Pressure 139/82 11/22/2023 8:23 PM CDT Pulse 86 11/22/2023 8:23 PM CDT Temperature 38.1 C (100.5 F) 11/22/2023 8:23 PM CDT Respiratory Rate 16 11/22/2023 8:23 PM CDT Oxygen Saturation 100% 11/22/2023 8:23 PM CDT Inhaled Oxygen Concentration - - Weight 88.5 kg (195 lb) 11/22/2023 8:23 PM CDT Height 177.8 cm (5' 10) 11/22/2023 8:23 PM CDT Body Mass Index 27.98 11/22/2023 8:23 PM CDT Plan of Treatment Health Maintenance Due Date Last Done Comments Colorectal Cancer Screening Colonoscopy (10 Years) 1970 Annual Physical 09/05/1975 Hepatitis C 1990 DTaP, Tdap and Td Vaccines ( 1 - Tdap) 09/05/1991 Hepatitis B Vaccines (1 of 3 - 19+ 3-dose series) 09/05/1991 Pneumococcal Vaccine: 50+ Years (1 of 1 - PCV) 2022 Zoster Vaccines (1 of 2) 2022 COVID-19 Vaccine (4 - 2024-2 6 season) 2024 01/10/2021, 05/24/2020, 05/02/2020 Influenza Adult (#1) 2024 Hepatitis A Vaccines Aged Out No long er eligible based on patient's age to complete this topic Meningococcal B Vaccine Aged Out No l onger eligible based on patient's age to complete this topic Meningococcal Vaccine Aged Out No steve becki eligible based on patient's age to complete this topic RSV Immunizations Under 20 Months Aged Out No longer eligible b ased on patient's age to complete this topic Insurance [employer] Care Teams Top Icer Relationship Specialty Start Date End Date Fredo Marin MD [address] [place] [address] PCP - General INTERNAL MEDICINE 11/27/18
[2025-01-11 08:25] LABS: Troponin I < 0.012 ng/mL (0.000-0.034)
[2025-01-11] MEDS: ONDANSETRON INJ 4 MG/2 ML VIAL IV PUSH (08:30)
--- NOTE | 2025-01-11 10:06 | ED_ITS ---
HPI - Abdominal Pain General Chief Complaint: Abdominal Pain Stated Complaint: epigastric pain x 3 weeks Time Seen by Provider: 01/11/25 07:58 History of Present Illness HPI narrative: For last few weeks, patient has had worsening epigastric discomfort, this morning woke up with nausea so came in. Has had this in the past, usually controlled with Protonix but has not been working. Related Data Allergies Allergy/AdvReac Type Severity Reaction Status Date / Time Penicillins Allergy Severe Anaphylaxis Verified 12/14/24 09:23 venom-wasp Allergy Intermediate Swelling Verified 12/14/24 09:23 Review of Systems 2 Review of Systems: All systems reviewed & are unremarkable except as noted in HPI and below PMFSH Past Medical History Medical History Sinusitis Gastroesophageal reflux disease Conductive hearing loss in right ear Overweight (BMI 25.0-29.9) [place] esophagitis Hx of adenomatous colonic polyps GERD with esophagitis Left groin pain Encounter for other specified surgical aftercare Elevated blood pressure reading in office without diagnosis of hypertension Left inguinal hernia Unspecified abdominal pain Pre-procedural laboratory examination Inguinal hernia Migraine Erosive gastritis Post-polypectomy bleeding Near syncope Obstructive sleep apnea treated with BiPAP (11/2019) Acute blood loss anemia Rectal bleeding Gastroesophageal reflux disease Degenerative joint disease Rectal hemorrhage Lumbar disc disease Vomiting Diverticulitis large intestine Migraine Chest pain Right knee DJD Surgical History Surgical History H/O inguinal hernia repair robotic assisted left inguinal hernia repair with mesh 07/25/2021 History of right inguinal hernia repair History of arthroscopy of right knee (03/2019) History of colonoscopy with polypectomy (10/10/20) Family History Family History Father Lung cancer Mother , Old age per Rehan Hypertension Atrial fibrillation Social History Social History Social History: Surrogate decision maker: Ashwini Arteaga, significant other. Code status: Full code. Smoking packs per day: 1.5 Smoking cigarettes per day: 30.0 Years smoked: 13 Smoking pack-years: 19.50 Smoking status: Former smoker Tobacco type: cigarettes Second hand tobacco smoke exposure: Yes Smoking end date: 02/10/00 Alcohol intake: current Drinks per week: 14 Substance use: current Substance use type: marijuana Other substance usage details: vape marijuana before bed Last use: 10/08/20 Lack of Transportation: No Lack of Food: Never True Current Housing: I Have Housing Concerned About Future Housing: No Difficulty Paying Gas/Electric Bills: No Difficulty Paying for Meds: No Currently Unemployed: No Education: Decline to Answer Difficulty w/ Childcare or Family Care: No Living arrangements: with family Occupation/Education: occupation Additional occupation/education comments: Works for [employer]. Gender identity (if verbalized by the patient): Male Spiritual care concerns: No Exam 2 Narrative: EXAMINATION OF ORGAN SYSTEMS/BODY AREAS: Constitutional: Vital signs per nursing GENERAL:[No acute distress, non-toxic appearing.] HEAD: Normal with no signs of head trauma. EYES: EOMI, conjunctiva normal ENT: Hearing grossly intact LUNGS: Nonlabored breathing. HEART: [Regular rate and rhythm] ABD: [Soft], slightly tender and to epigastric/periumbilical abdomen EXT: Normal range of motion SKIN: [No rashes or lesions.] NEURO: [Alert. No gross focal sensory or strength deficits.] PSYCH: Normal affect Course Vital Signs Vital signs: Vital Signs Temperature 98.4 F 01/11/25 07:25 Pulse Rate 58 L 01/11/25 07:25 Respiratory Rate 16 01/11/25 07:25 Blood Pressure 136/78 01/11/25 07:25 Pulse Oximetry 99 01/11/25 07:25 Oxygen Delivery Room Air 01/11/25 07:25 Temperature 98.4 F 01/11/25 07:25 Pulse Rate 50 L 01/11/25 10:13 Respiratory Rate 16 01/11/25 10:13 Blood Pressure 127/70 01/11/25 10:13 Pulse Oximetry 99 01/11/25 10:13 Oxygen Delivery Room Air 01/11/25 07:25 MDM MDM Narrative Medical decision making narrative: Electronic medical record was reviewed. Patient presented to the ED with complaint of [several weeks of epigastric abdominal pain and vomiting today]. Vitals [were within acceptable limits]. Physical exam revealed slight tenderness epigastric/periumbilical abdomen.. Based on the patient's history and physical exam, my differential includes but is not limited to [gastritis, gastroenteritis, cholecystitis, pancreatitis, appendicitis]. [IV access was established by nursing staff. Patient was given zofran, famotidine, Protonix]. CBC, BMP, lipase, LFTs, bilirubin and alk phos were obtained. Labs were pertinent for labs within next. [Decision was made to obtain a CT-abdomen to evaluate for acute abdominal process. CT-abdomen per radiology interpretation unremarkable, other than possibly signs of cystitis, patient has no urinary symptoms whatsoever, would prefer not to wait for urine sample, he does feel much better, has follow-up with his GI specialist in then next month, I did addictions counselor assistant dietary changes, alcohol cessation since he does have a drink daily, and will trial starting him on Maalox, Pepcid, script for Zofran as needed. Patient agreeable to plan..] Stable for discharge with return precautions. Differential Diagnosis Differential Diagnosis: Gastritis, ulcer, pancreatitis, colitis Lab Data 01/11/25 07:52 01/11/25 07:52 Labs: Lab Results 01/11/25 Range/Units 07:52 WBC 5.5 (4.5-10.0) K/mm3 RBC 4.79 (4.6-6.20) M/mm3 Hgb 13.3 L (14.0-18.0) g/dL Hct 39.3 L (42.0-52.0) % MCV 82.0 (80-100) fl MCH 27.8 (26-34) pg MCHC 33.8 (32-36) g/dl RDW 15.2 H (11.5-14.5) % Plt Count 271 (150-375) k/mm3 MPV 8.9 (7.4-10.4) fl Immature Gran % (Auto) 0.4 (0-0.5) % Neut % (Auto) 42.1 L (45.5-73.1) % Lymph % (Auto) 43.0 (18.3-44.2) % [place] % (Auto) 11.5 H (2.6-8.5) % Eos % (Auto) 2.6 (0-4.4) % Baso % (Auto) 0.4 (0.2-1.2) % Lymph # (Auto) 2.35 (0.9-3.2) K/mm3 [place] # (Auto) 0.6 (0.1-0.6) K/mm3 Eos # (Auto) 0.1 (0-0.3) K/mm3 Baso # (Auto) 0.0 (0.0-0.1) K/mm3 Abs Immat Gran (auto) 0.02 (0.00-0.031) K/mm3 Absolute Neuts (auto) 2.3 (1.3-6.7) K/mm3 Absolute Nucleated RBC 0.000 (0.0-0.012) K/mm3 Nucleated RBC % 0.0 (0.0-0.2) % Sodium 140 (137-145) mmol/L Potassium 4.1 (3.4-5.0) mmol/L Chloride 108 H (98-107) mmol/L Carbon Dioxide 27 (22-30) mmol/L Anion Gap 5 (4-12) mmol/L BUN 13 (9-20) mg/dL Creatinine 1.51 H (0.7-1.3) mg/dL Estim Creat Clear Calc Not Reportable Estimated GFR 49 L (59 - ) Glucose 96 (65-110) mg/dL Calcium 9.8 (8.4-10.2) mg/dL Total Bilirubin 0.5 (0.2-1.3) mg/dL AST 38 (17-59) U/L ALT 28 (6-50) U/L Alkaline Phosphatase 56 (38-126) U/L Troponin I < 0.012 (0.000-0.034) ng/mL Total Protein 7.3 (6.3-8.2) g/dL Albumin 4.3 (3.5-5.1) g/dL Lipase 168 (23-300) U/L Imaging Data Radiologist's impression: ITS Impressions Abdomen/Pelvis CT 01/11/25 10:39 IMPRESSION: 1. Subtle stranding about the bladder raising suspicion for cystitis. Correlate with urinalysis. No other acute intra-abdominal/pelvic process. 2. Diverticulosis. Discharge Plan Discharge Clinical Impression: Abdominal pain Patient Disposition: Home Condition: Stable Instructions: Abdominal Pain (ED) Additional Instructions: Please follow up with your GI as planned, try the medications as prescribed, and come back to the ER for any further issues. Please stop drinking any alcohol, avoid spicy/fried/greasy foods for now. Patient Language: German Prescriptions: New alum-mag hydroxide-simeth [Maalox Advanced] 200-200-20 mg/5 mL suspension 10 ml PO QID PRN (Reason: dyspepsia) Qty: 300 0RF Rx Instructions: administer between meals and at bedtime famotidine 20 mg tablet 20 mg PO DAILY Qty: 30 0RF dicyclomine 20 mg tablet 20 mg PO TID PRN (Reason: abdominal pain) Qty: 30 0RF ondansetron 4 mg tablet,disintegrating 4 mg PO Q8H PRN (Reason: nausea and vomiting) Qty: 10 0RF No Action prednisone 10 mg tablet 10 mg PO DIRECTED Qty: 10 1RF Rx Instructions: take 1 tablet daily with breakfast for 1 week and then take 1 tablet every other day for 6 days and then stop gabapentin [Neurontin] 300 mg capsule 300 mg PO .COMPLEX Qty: 90 2RF Rx Instructions: 300 mg orally 1 hour before bedtime; rizatriptan 10 mg tablet See Rx Instructions PO .COMPLEX Qty: 30 2RF Rx Instructions: take 1 tab at onset of headache; if no relief may repeat 1 tab after at least 2 hrs; max = 3 tabs/24 hr PO fenofibrate nanocrystallized 48 mg tablet See Rx Instructions .ROUTE .COMPLEX Qty: 90 2RF Dose Instruction: TAKE 1 TABLET BY MOUTH DAILY Rx Instructions: TAKE 1 TABLET BY MOUTH DAILY topiramate 50 mg tablet See Rx Instructions .ROUTE .COMPLEX Qty: 180 2RF Dose Instruction: TAKE 1 TABLET(50 MG) BY MOUTH TWICE DAILY Rx Instructions: TAKE 1 TABLET(50 MG) BY MOUTH TWICE DAILY losartan-hydrochlorothiazide 50-12.5 mg tablet See Rx Instructions .ROUTE .COMPLEX Qty: 90 2RF Dose Instruction: TAKE 1 TABLET BY MOUTH DAILY Rx Instructions: TAKE 1 TABLET BY MOUTH DAILY pantoprazole 40 mg tablet,delayed release (DR/EC) 40 mg PO QAM Qty: 90 3RF Follow-up/Referrals: Fredo Marin MD [Primary Care Provider, Internal Medicine] Stand Alone Forms: Work/School Release IP
[2025-01-11 10:13] VITALS: BP 127/70; PULSE 50; RESP 16; O2SAT 99
[2025-01-11] MEDS: MAG HYDROX/AL HYDROX/SIMETH 30 ML UDC PO (11:00)
[2025-01-11 11:10] VITALS: BP 124/74; PULSE 59; RESP 15; O2SAT 100
== END 2025-01-11 11:12 | disposition home or self-care (01) ==
PROVIDERS: Emergency Provider Emergency Medicine; PCP Emergency Medicine
DX: R10.13 Epigastric pain (principal); K21.00 Gastro-esophageal reflux disease with esophagitis, without bleeding; G47.33 Obstructive sleep apnea (adult) (pediatric); M19.071 Primary osteoarthritis, right ankle and foot; Z86.0101 Personal history of adenomatous and serrated colon polyps; Z87.891 Personal history of nicotine dependence; K57.90 Diverticulosis of intestine, part unspecified, without perforation or abscess without bleeding; R00.1 Bradycardia, unspecified
CPT/HCPCS: 36415; 74177; 80053; 83690; 84484; 85025; 93005; 96374; 96375; 99284; A9270; J2405; J2470; Q9967